=== PATIENT | female | born 1960 | race Caucasian/White ===

== ENCOUNTER 2023-12-18 11:34 | Outpatient (OUT) | payer MEDICARE, OTHER, SELFPAY ==
[2023-12-18 12:18] LABS: Basophils Absolute Auto 0.1 10^3/uL (0.0-0.1); Basophils Percent Auto 0.9 % (0.2-2.0); Eosinophils Absolute Auto 0.6 10^3/uL (0.0-0.7); Eosinophils Percent Auto 6.3 % (0.9-7.0); Estimated Average Glucose 260 mg/dL; Glycohemoglobin A1C 10.7 % (4.5-6.2); Hemoglobin 15.5 g/dL (12.0-16.0); Immature Granulocytes Abs Auto 0.02 10^3/uL (0.00-0.03); Immature Granulocytes Pct Auto 0.2 % (0.0-0.5); Lymphocytes Absolute Auto 2.1 10^3/uL (1.2-3.8); Lymphocytes Percent Auto 23.4 % (20.5-60.0); Mean Corpuscular HGB Conc 31.6 g/dL (29.9-35.2); Mean Corpuscular Hemoglobin 26.8 pg (26.7-34.0); Mean Corpuscular Volume 84.6 fL (81.0-99.0); Mean Platelet Volume 10.7 fL (9.5-13.5); Monocytes Absolute Auto 0.6 10^3/uL (0.3-0.8); Monocytes Percent Auto 6.7 % (1.7-12.0); Neutrophils Absolute Auto 5.6 10^3/uL (1.4-6.5); Neutrophils Percent Auto 62.5 % (43.0-75.0); Platelet Count 328 10^3/uL (150-450); Red Blood Count 5.79 10^6/uL (4.20-5.40)
[2023-12-18 12:54] LABS: Alanine Aminotransferase 30 U/L (14-59); Albumin Globulin Ratio 0.9; Albumin Level 3.5 g/dL (3.4-5.0); Alkaline Phosphatase 148 U/L (46-116); Aspartate Amino Transferase 20 U/L (15-37); BUN Creatinine Ratio 8.7; Bilirubin Total 0.9 mg/dL (0.2-1.0); Calcium 9.1 mg/dL (8.5-10.1); Carbon Dioxide 25.9 mmol/L (21.0-32.0); Chloride 103 mmol/L (98-107); Chol HDL Ratio 3.8; Cholesterol 193 mg/dL (<=200); Estimated GFR (African America 52 (>=60); Estimated GFR (Non-African Ame 43 (>=60); Glucose 261 mg/dL (74-106); HDL Cholesterol 51 mg/dL (40-60); Potassium 3.9 mmol/L (3.5-5.1); Sodium 140 mmol/L (136-145); Total Protein 7.5 g/dL (6.4-8.2); Triglycerides 174 mg/dL (<=150); VLDL CHOLESTEROL 34.8 mg/dL
== END 2023-12-18 11:35 | disposition home or self-care (01) ==
PROVIDERS: PCP Internal Medicine; Visit Provider Internal Medicine
DX: E11.65 Type 2 diabetes mellitus with hyperglycemia (principal); I10 Essential (primary) hypertension; E78.00 Pure hypercholesterolemia, unspecified
CPT/HCPCS: 36415; 80053; 80061; 82043; 83036; 85025

== ENCOUNTER 2024-09-17 11:33 | Outpatient (OUT) | payer MEDICARE, OTHER, SELFPAY ==
--- NOTE | 2024-09-17 11:46 | XR_ITS ---
The [address] [address] Patient Name: TARAS PLAZA MRN: [id number] date: 1960 Sex: F Assigned Patient Location: [facility] Current Patient Location: [facility] Accession/Order Number: [id number] Exam Date: 09/17/2024 14:05 Report Date: 09/17/2024 14:05 At the request of: SHARON QUEVEDO DO Procedure: XR chest 2V Chest 2 views CLINICAL HISTORY: Cough COMPARISON: Chest 01/01/2021 FINDINGS: Heart normal size. Lungs are clear. No free air. XR/XR chest 2V IMPRESSION: NO ACUTE CARDIOPULMONARY ABNORMALITY. Impression dictated by: Prakash Do Jr.OBetty09/17/2024 2:05 PM Dictation Location: [facility]18 Electronically authenticated by: [id number] Y Date: 09/17/2024 14:05
== END 2024-09-17 11:34 | disposition home or self-care (01) ==
LOC: RAD 11:35
PROVIDERS: PCP Internal Medicine; Visit Provider Internal Medicine
DX: R05.9 Cough, unspecified (principal)
CPT/HCPCS: 71046

== ENCOUNTER 2024-12-16 06:27 | Emergency (ER) | payer MEDICARE, OTHER, SELFPAY ==
--- OUTSIDE RECORDS SUMMARY | 2021-01-13 08:50 | XMS_ITS | Continuity of Care Document ---
Author Organization [facility] Address [address] [place] [address] Phone Care Team Providers Care Geophysical Prospecting Surveyor Name Role Phone Humza Jernigan MD Unavailable Unavailable Allergies, Adverse Reactions, Alerts Substance Reaction Status Criticality acetaminophen ItchyEyes, Hives, Rash Active No I nformation morphine Other Active No Information codeine Hives, Rash, Swelling Active No Inf ormation HYDROCODONE BITARTRATE ItchyEyes, Hives, Rash Active No Information oxycodone ItchyEyes, Hives, Rash Active No In formation morphine Active No Information Medications Medication Instructions Dosage Effective Dates (start - stop) Status Comments Victoza 2-Jake 0.6 mg/0.1 mL (18 mg/3 mL) subcutaneous pen injector inject (1.2MG) by subcutaneous route every day 1.2 MG - Active losartan 25 mg tablet take 1 tablet by o ral route every day 25 MG - Active Breo Ellipta 100 mcg-25 mcg/dose powder for inhalation inhale 1 puff by inhalation route every day at the same time each day 1.00 puff - Active Lipitor 40 mg tablet take 1 tablet by or al route every day 40 MG - Active Basaglar KwikPen U-100 Insulin 100 unit/mL (3 mL) subcutaneous inject by subcutaneous route as per insulin protocol 0.00 - Active albuterol sulfate HFA 90 mcg/actuation aerosol inhaler inhale 2 puff by inhalation route every 4 - 6 hours as needed as needed 180 MCG - Active duloxetine 60 mg capsule,delayed release take 1 capsule by oral route 2 times every day 60 MG - Active Farxiga 10 mg tablet take 1 tablet by or al route every day in the morning 10 MG - Active clonazepam 2 mg tablet take 1 tablet by oral route 3 times every day 2 MG - Active Restasis 0.05 % eye drops in a dropperette instill 1 drop by ophthalmic route every 12 hours into affected eye(s) 1.00 drop - Active Procedures Procedure Date Ophthal DX Image Post Retina I And R Uni Or Bi OFFICE/OUTPATIENT VISIT, NEW Advance Directives Directive Yes / No Effective Date File Name No Information Encounters Encounter Description Practice Location Reason(s) For Visit Diagnoses Date Provider Providers Copied on Encounter OFFICE/OUTPAT IENT VISIT, [facility] , [address] [place], [address], [place] tel:[phone] VALDEMAR Traore possible diabetic retinopathy (chief complaint)bl urry vision (chief complaint) Type 2 diab with mild nonp rtnop without macular edema, biAge-related nuclear cataract, bilateralRetinal hemorrhage 1 Rere Ching. [address], [place] [address], [place], [place], [id number] , . tel:[phone] Specialist : [address], [place], [address]. tel:[phone] [phone] Provider: [address], [place], [address]. tel:[phone] [facility] , [address] [place], [address], [place] tel:[phone] VALDEMAR Traore No Information 1 Rere Ching. [address], [address], [place], [place], [id number] , . tel:[phone] Family History Family Member Type Diagnosis Age At Onset Father Problem (finding) High cholesterol Sister Problem (finding) Hypertension Sister Problem (finding) High cholesterol Father Problem (finding) Arthritis Father Problem (finding) Hypertension Paternal Grandmother Problem (finding) Cataracts Father Problem (finding) Cataracts Brother Problem (finding) Arthritis Father Problem (finding) Cardiovascular disease Father Problem (finding) Diabetes mellitus Brother Problem (finding) Asthma Mother Problem (finding) Arthritis Sister Problem (finding) Arthritis Payers Payer name Insurance type Covered green party ID Authorstevie rodriguezluis armando(s) Ruperto [employer] [place] [id number] Social History Type Description Quantity Date Captured Comments Alcohol Use Details No Caffeine Use Details No Tobacco Use Status Current non-smoker Smoking Status Never smoker Sex Female Vital Signs Date / Time: Height Weight BMI Pulse Rate Blood Pressure Temperature Respiratory Rate Body Surface Area Head Circumference Head Circ. Percentile Wt./[place]on. Percentile BMI percentile Pulse Ox Inhaled Ox 1:11 PM 125/67 mm[Hg] Chief Complaint And Reason For Visit From encounter dated '01/13/2021 12:50'. possible diabetic retinopathy (chief complaint). Description: The 60 year old female presents for evaluation of possible diabetic retinopathy in both eyes. Per blurry vision (chief complaint). Description: The patient states blurry vision in both eyes. It started about 1 month(s) ago. The onset was gradual. It affects both near and distance vision. The condition is described as a dry feeling in both eyes. Patient denies flashes and floaters. Reason For Referral Reason For Referral No Information History Of Present Illness Encounter Date Complaint History Of Prese nt Illness blurry vision The patient stat es blurry vision in both eyes. It started about 1 month(s) ago. The onset was gradual. It affects both near and distance vision. The condition is described as a dry feeling in both eyes. Patient denies flashes and floaters. possible diabetic retinopathy Th e 60 year old female presents for evaluation of possible diabetic retinopathy in both eyes. Per Functional Status Date Functional Assessmen t No Information Instructions Date Instruction Additional Infor mation Return in Related to Type 2 diab with mild nonp rtnop without macular edema, bi Impression/Plan Related to Type 2 diab with mild nonp rtnop without macular edema, bi Impression/Plan Related to Age-r elated nuclear cataract, bilateral Impression/Plan Related to Retin al hemorrhage Assessments Type Assessment Date assessment Type 2 diab with mild nonp rtnop without macular edema, bi assessment Age-related nuclear cataract, bi lateral impression Type 2 diab with mil d nonp rtnop without macular edema, bi: E11.3293. Bilateral. Conditions: new, very mild impression Age-related nuclear cataract, bilateral: H25.13. Bilateral. Conditions: new assessment Retinal hemorrhage impression Retinal hemorrhage: H35.60. Bila teral. Conditions: new Patient Care Teams Name Effective Dates (start - stop) Status Members No Information
--- OUTSIDE RECORDS SUMMARY | 2024-12-05 23:59 | XMS_ITS | Continuity of Care Document ---
Author Organization [facility] Address [address] [place] [address] Care Team Providers Care Poultry Farm Worker Name Role Phone SHARON QUEVEDO Primary Care Physician Encounter FT_AMBFIN [id number] Date(s): 12/05/24 - 12/05/24 [facility] [address] [place] [address]- [place] Encounter Diagnosis Viral URI with cough(Discharge Diagnosis) - 12/05/24 Elevated blood pressure reading with diagnosis of hypertension(Discharge Diagnosis) - 12/05/24 Discharge Disposition: Home (Routine DC) Attending Physician: Richard Vergara PA-C Encounter Type: Clinic Allergies, Adverse Reactions, Alerts Substance Criticality Severity Reaction Reaction Severity Status codeine Active morphine Hives Active Percocet hives Active predniSONE swelling in ankles Active Immunizations Given and Recorded Vaccine Date Status Refusal Reason SARS-CoV-2 (COVID-19) mRNA-1273 vaccine 1 10/02/20 Recorded SARS-CoV-2 (COVID-19) mRNA-1273 vaccine 2 09/04/20 Recorded influenza virus vaccine, inactivated 03/30/18 Crow rded 1Result Comment: 2024-12-05: TPV60 2Result Comment: 2024-12-05: TPV60 Medications atorvastatin 40 mg Tab 40 mg = 1 tab(s), Refills(s) 0 Start Date: 12/05/24 Status: Ordered Repeat number: 1 buPROPion 150 mg/24 hours XL Tab 150 mg = 1 tab(s), Refills(s) 0 Start Date: 12/05/24 Status: Ordered Repeat number: 1 clonazepam 1 mg Tab 1 mg = 1 tab(s), Refills(s) 0 Start Date: 12/05/24 Status: Ordered Repeat number: 1 diphenhydrAMINE 25 mg Cap 50 mg = 2 cap(s), Oral, q6hr, Refills(s) 0 Start Date: 12/05/24 Status: Ordered Repeat number: 1 escitalopram 10 mg Tab 10 mg = 1 tab(s), Refills(s) 0 Start Date: 12/05/24 Status: Ordered Repeat number: 1 gabapentin 100 mg Cap 100 mg = 1 cap(s), Refills(s) 0 Start Date: 12/05/24 Status: Ordered Repeat number: 1 Insulin Aspart FlexPen 100 units/mL injectable solution Refills(s) 0 Start Date: 12/05/24 Status: Ordered Repeat number: 1 Insulin Glargine Prefilled Pen 100 units/mL subcutaneous solution Refills(s) 0 Start Date: 12/05/24 Status: Ordered Repeat number: 1 losartan 50 mg Tab 50 mg = 1 tab(s), Refills(s) 0 Start Date: 12/05/24 Status: Ordered Repeat number: 1 Tessalon 100 mg Cap 100 mg = 1 cap(s), Oral, TID, X 7 day(s), # 21 cap(s), Refills(s) 0, Pharmacy: [facility]/pharmacy #[id number], 178, cm, 12/05/24 14:24:00 EDT, Height/Length Dosing, 117.3, kg, 12/05/24 14:24:00 EDT, Weight Dosing Start Date: 12/05/24 Stop Date: 12/12/24 Status: Ordered Quantity: 21.0 Unit: cap(s) Repeat number: 1 Indications: Acute upper respiratory infection, unspecified; Social History Social History Type Response Smoking Status Never (less than 100 in lifetime);Never entered on: 12/05/24 Sex Female Sex Representation Female (finding) Hospital Discharge Instructions Patient Education 12/05/2024 14:44:19 Upper Respiratory Infection, Adult Upper Respiratory Infection, Adult An upper respiratory infection (URI) is a common viral infection of the nose, throat, and upper airpassages that lead to the lungs. The most common type of URI is the common cold. URIs usually get better on their own, without medical treatment. What are the causes? A URI is caused by a virus. You may catch a virus by: ??? Breathing in droplets from an infected person's cough or sneeze. ??? Touching something that has been exposed to the virus (is contaminated) and then touching your mouth, nose, or eyes. What increases the risk? You are more likely to get a URI if: ??? You are very young or very old. ??? You have close contact with others, such as at work, school, or a health care facility. ??? You smoke. ??? You have long-term (chronic) heart or lung disease. ??? You have a weakened disease-fighting system (immune system). ??? You have nasal allergies or asthma. ??? You are experiencing a lot of stress. ??? You have poor nutrition. What are the signs or symptoms? A URI usually involves some of the following symptoms: ??? Runny or stuffy (congested) nose. ??? Cough. ??? Sneezing. ??? Sore throat. ??? Headache. ??? Fatigue. ??? Fever. ??? Loss of appetite. ??? Pain in your forehead, behind your eyes, and over your cheekbones (sinus pain). ??? Muscle aches. ??? Redness or irritation of the eyes. ??? Pressure in the ears or face. How is this diagnosed? This condition may be diagnosed based on your medical history and symptoms, and a physical exam. Your health care provider may use a swab to take a mucus sample from your nose (nasal swab). This sample can be tested to determine what virus is causing the illness. How is this treated? URIs usually get better on their own within 7???10 days. Medicines cannot cure URIs, but your health care provider may recommend certain medicines to help relieve symptoms, such as: ??? Lleo-iin-vgrfzje cold medicines. ??? Cough suppressants. Coughing is a type of defense against infection that helps to clear the respiratory system, so take these medicines only as recommended by your health care provider. ??? Fever-reducing medicines. Follow these instructions at home: Activity ??? Rest as needed. ??? If you have a fever, stay home from work or school until your fever is gone or until your health care provider says your URI cannot spread to other people (is no longer contagious). Your health care provider may have you wear a face mask to prevent your infection from spreading. Relieving symptoms ??? Gargle with a mixture of salt and water 3???4 times a day or as needed. To make salt water, completely dissolve ?1 tsp (3???6 g) of salt in 1 cup (237 mL) of warm water. ??? Use a cool-mist humidifier to add moisture to the air. This can help you breathe more easily. Eating and drinking ??? Drink enough fluid to keep your urine pale yellow. ??? Eat soups and other clear broths. General instructions ??? Take bqkc-kjw-pwimzmi and prescription medicines only as told by your health care provider. These include cold medicines, fever reducers, and cough suppressants. ??? Do not use any products that contain nicotine or tobacco. These products include cigarettes, chewing tobacco, and vaping devices, such as e-cigarettes. If you need help quitting, ask your health care provider. ??? Stay away from secondhand smoke. ??? Stay up to date on all immunizations, including the yearly (annual) flu vaccine. ??? Keep all follow-up visits. This is important. How to prevent the spread of infection to others URIs can be contagious. To prevent the infection from spreading: ??? Wash your hands with soap and water for at least 20 seconds. If soap and water are not available, use hand travel registered nurse nicu. ??? Avoid touching your mouth, face, eyes, or nose. ??? Cough or sneeze into a tissue or your sleeve or elbow instead of into your hand or into the air. Contact a health care provider if: ??? You are getting worse instead of better. ??? You have a fever or chills. ??? Your mucus is brown or red. ??? You have yellow or brown discharge coming from your nose. ??? You have pain in your face, especially when you bend forward. ??? You have swollen neck glands. ??? You have pain while swallowing. ??? You have white areas in the back of your throat. Get help right away if: ??? You have shortness of breath that gets worse. ??? You have severe or persistent: ??? Headache. ??? Ear pain. ??? Sinus pain. ??? Chest pain. ??? You have chronic lung disease along with any of the following: ??? Making high-pitched whistling sounds when you breathe, most often when you breathe out (wheezing). ??? Prolonged cough (more than 14 days). ??? Coughing up blood. ??? A change in your usual mucus. ??? You have a stiff neck. ??? You have changes in your: ??? Vision. ??? Hearing. ??? Thinking. ??? Mood. These symptoms may be an emergency. Get help right away. Call 911. ??? Do not wait to see if the symptoms will go away. ??? Do not drive yourself to the hospital. Summary ??? An upper respiratory infection (URI) is a common infection of the nose, throat, and upper air passages that lead to the lungs. ??? A URI is caused by a virus. ??? URIs usually get better on their own within 7???10 days. ??? Medicines cannot cure URIs, but your health care provider may recommend certain medicines to help relieve symptoms. This information is not intended to replace advice given to you by your health care provider. Make sure you discuss any questions you have with your health care provider. Document Revised: 01/12/2022 Document Reviewed: 01/12/2022 [employer] Patient Education ?? 2023 [employer]. Follow Up Care 12/05/2024 12:22:45 With:SHARON QUEVEDO DO Address: [address] [place] [address]- When: Unknown With:Richard Vergara PA-C, FAM Address: [phone] When: Unknown Patient Care team information Care Team Personnel Name: SHARON QUEVEDO DO Position: FT Physician Member Role: Primary Care Physician Address: [address] [place] [address]- Telecom: Care Team Related Persons Name: JOSEPH PLAZA Insurance Providers Guarantor name: TARAS Mendez BOLA Health Plan Information #: 1 Payer: NA Payer Identifier: [id number] Member Number: [id number] Group Number: [id number] Subscriber Identifier: [id number] Relationship to Subscriber: Self Coverage Type: MEDICARE Coverage Verification Date: 24 Telecom: NA Address: Health Plan Information #: 2 Payer: RENE Payer Identifier: [id number] Member Number: [id number] Group Number: [employer] Subscriber Identifier: [id number] Relationship to Subscriber: Self Coverage Type: PRIVATE HEALTH INSURANCE Coverage Verification Date: 24 Telecom: RENE Address:
--- OUTSIDE RECORDS SUMMARY | 2024-12-07 23:59 | XMS_ITS | Continuity of Care Document ---
Author Organization [facility] Address [address], [place] [place] [address] Care Team Providers Care Dean Of Boys Name Role Phone SHARON QUEVEDO Primary Care Physician [phone] Encounter FT_AMBFIN [id number] Date(s): 12/07/24 - 12/07/24 [facility] [address] [place] [address]- [place] Encounter Diagnosis Bronchitis(Discharge Diagnosis) - 12/07/24 Discharge Disposition: Home (Routine DC) Attending Physician: Ari Sánchez PA-C Encounter Type: Clinic Allergies, Adverse Reactions, [...] Date: 12/05/24 Status: Ordered Repeat number: 1 azithromycin 250 mg Tab 250 mg = 1 tab(s), Oral, As Directed, Take 2 tablet p.o. once daily on day 1, then take 1 tablet p.o. once daily for the next 4 days., X 5 day(s), # 6 tab(s), Refills(s) 0, Pharmacy: [facility]/pharmacy #[id number], 178, cm, 12/07/24 12:01:00 EDT, Height/Length Dosing, 117, kg, 12/07/24 12:01:00 EDT, Weight Dosing Start Date: 12/07/24 Stop Date: 12/12/24 Status: Ordered Quantity: 6.0 Unit: tab(s) Repeat number: 1 Indications: Bronchitis, not specified as acute or chronic; buPROPion 150 mg/24 hours XL Tab 150 [...] Date: 12/05/24 Status: Ordered Repeat number: 1 predniSONE 20 mg Tab 40 mg = 2 tab(s), Oral, Daily, X 5 day(s), # 10 tab(s), Refills(s) 0, Pharmacy: [facility]/pharmacy #[id number],178, cm, 12/07/24 12:01:00 EDT, Height/Length Dosing, 117, kg, 12/07/24 12:01:00 EDT, Weight Dosing Start Date: 12/07/24 Stop Date: 12/12/24 Status: Ordered Quantity: 10.0 Unit: tab(s) Repeat number: 1 Indications: Bronchitis, not specified as acute or chronic; Tessalon 100 mg Cap 100 mg = 1 cap(s), Oral, TID, X 7 day(s), # 21 cap(s), Refills(s) 0, Pharmacy: [facility]/pharmacy #[id number], 178, cm, 12/05/24 14:24:00 EDT, Height/Length Dosing, 117.3, kg, 12/05/24 14:24:00 EDT, Weight Dosing Start Date: 12/05/24 Stop Date: 12/12/24 Status: Ordered Quantity: 21.0 Unit: cap(s) Repeat number: 1 Indications: Acute upper respiratory infection, unspecified; Social History Social History Type Response Smoking Status Never (less than 100 in lifetime);Never entered on: 12/07/24 Sex Female Sex Representation Female (finding) Patient Care team information Care Team Personnel Name: SHARON QUEVEDO DO Position: FT Physician Member Role: Primary Care Physician Address: [address] [place] [address] Telecom: Care Team Related Persons Name: JOSEPH PLAZA Insurance Providers Guarantor name: TARAS PLAZA Health Plan Information #: 1 Payer: NA Payer Identifier: [id number] Member Number: [id number] Group Number: [id number] Subscriber Identifier: [id number] Relationship to Subscriber: Self Coverage Type: MEDICARE Coverage Verification Date: 24 Telecom: NA Address: Health Plan Information #: 2 Payer: NA Payer Identifier: [id number] Member Number: [id number] Group Number: [id number] Subscriber Identifier: [id number] Relationship to Subscriber: Self Coverage Type: PRIVATE HEALTH INSURANCE Coverage Verification Date: 24 Telecom: Address:
[2024-12-16 06:31] VITALS: BP 162/82; PULSE 94; TEMP 37.1; O2SAT 96; BMI 36.9
--- OUTSIDE RECORDS SUMMARY | 2024-12-16 06:35 | XMS_ITS | Encounter Summary ---
Author Organization [facility] Address [address] [facility] [place] [address] Care Team Providers Care Stock Counter Name Role Phone Donnie Hebert Primary Care Provider [phone] Encounter Details Date Type Department Care Team ([facility] Contact Info) Description 11/05/2024 Results Follow-Up [facility] [address] [facility] [address] [place] [address] Rashad Huerta, PA [address] [facility] [address] [place] [address] Social History Tobacco Use Types Packs/Day Years Used Date Smoking Tobacco: Never Smokeless Tobacco: Never Alcohol Use Standard Drinks/Week Comments Yes 0 (1 standard drink = 0.6 oz pur e alcohol) Occationally Comments Unknown Sex and Gender Information Value Date Recorded Sex Assigned at Not on file Legal Sex Female 6:50 PM EDT Gender Identity Not on file Sexual Orientation Not on file documented as of this encounter Plan of Treatment Upcoming Encounters Date Type Department Care Team (Late Contact Info) Description 12/17/2024 2:00 PM EDT Office Visit [facility] [address] [address] Rashad Huerta, PA [address] [facility] [address] [place] [address] 12/25/2024 2:00 PM EDT Office Visit [facility] [address] [place] [address] Lamont Guillory DO [address] [place] [address] documented as of this encounter Visit Diagnoses Not on filedocumented in this encounter Care Teams Stock Counter Relationship Specialty Start Date End Date Donnie Hebert DO PCP - General Internal Medicine 11/16/23 documented as of this encounter
--- OUTSIDE RECORDS SUMMARY | 2024-12-16 06:35 | XMS_ITS | Encounter Summary ---
Author Organization [facility] Address [address] [place] [address] Care Team Providers Care Host/Hostess Ground Name Role Phone Donnie Hebert DO Primary Care Provider [phone] Reason for Visit * Reason Onset Date Comments surgery cancellation 11/19/2024 Encounter Details Date Type Department Care Team (Late st Contact Info) Description 11/19/2024 Telephone [facility] [address] [place] [address] Jr. Waldo Delacruz DO [address] [facility] [address] [place] [address] surgery cancellation Social History Tobacco Use Types Packs/Day Years [...] on file documented as of this encounter Miscellaneous Notes * Telephone Encounter - Katie Vaz MA - 12/10/2024 11:28 AM EDT Spoke with the patient. Dr. Delacruz said that he would be okay with doing her surgery as long as she is breathing well and there is no infection. She stated that she is feeling very poorly and is having trouble with her eyes from the bronchitis. We did move her surgery out to December 26 as she stated that she does tend to get pneumonia. She was grateful for return call and rescheduling of surgery. * Telephone Encounter - Shasha Bowman - 12/10/2024 9:28 AM EDT Patient called and left that she cannot drive at this time. Her eyes are matted shut and she is on a steriod at this time. She also has a sore throat. Please call patient back about rescheduling. * Telephone Encounter - Katie Vaz MA - 12/09/2024 1:31 PM EDT I called Patricia and left a voicemail to see when she came down with this and if they put her on anything. I do need to see her for H&P prior to her surgery but also need to check with Dr. Vila see if she is okay to have her surgery. * Telephone Encounter - Shasha Bowman - 12/09/2024 8:29 AM EDT Patient called in and left that she has Bronchiectasis . She has a pre-op appt tomorrow and would like to know if we still wanted her to come in. Please advise. * Telephone Encounter - Katie Vaz MA - 11/26/2024 9:21 AM EDT Case has also been scheduled at [facility]. * Telephone Encounter - Shasha Bowman - 11/21/2024 10:27 AM EDT Patient called back, she stated December 17 will work for her. * Telephone Encounter - Shasha Bowman - 11/21/2024 10:25 AM EDT Patient called and left vm returning your call. I called her back to ask her if that date would work, she did not answer. * Telephone Encounter - Katie Vaz MA - 11/21/2024 9:13 AM EDT I called patient and left a voicemail. If she calls, can you please ask if December 17 will work for her? * Telephone Encounter - Shasha Bowman - 11/19/2024 11:35 AM EDT Patient called and left vm stating she has a bad stomach bug and had to cancel her surgery for today. She would like to get put back on the surgery schedule. Please call patient back at [phone]. * Telephone Encounter - Katie Vaz MA - 11/19/2024 7:56 AM EDT I called and let Wilver Lin know. I will recall to reschedule her surgery. * Telephone Encounter - Christin Frias - 11/19/2024 7:51 AM EDT Patricia called on 11/18 at 11:28 and left vm stated she is scheduled for sx on 11/19 , she has had diarrhea for the last 2 days and thinks its best she does not have sx. She hope Dr Delacruz understands.She would like to r/s this sx , if you could call her back at [phone] documented in this encounter Plan of Treatment Upcoming Encounters Date Type Department Care Team (Late st Contact Info) Description 12/17/2024 2:00 PM EDT Office Visit [facility] [address] [facility] [place] [address] Rashad Huerta, ITZEL [address] [facility] [address] [place] [address] 12/25/2024 2:00 PM EDT Office Visit [facility] [address] [place] [address] Lamont Guillory DO [address] [place] [address] documented as of this encounter Visit Diagnoses Not on filedocumented in this encounter Care Teams Host/Hostess Ground Relationship Specialty Start Date End Date Donnie Hebert DO PCP - General Internal Medicine 11/16/23 documented as of this encounter
--- OUTSIDE RECORDS SUMMARY | 2024-12-16 06:35 | XMS_ITS | Clinical Summary ---
Author Organization [facility] Address [id number] [address] [place] [address] Care Team Providers Care Human Intelligence Name Role Phone Donnie Hebert Primary Care Provider [phone] Allergies Active Allergy Reactions Criticality Noted Date Comments Codeine Itching,Rash Low 02/14/2017 Morphine Other (See Comments) 02/14/2017 Stroke like symptoms Medications pioglitazone (ACTOS) 30 mg tablet Take 1 tablet (30 mg total) by mouth in the morning. Active citalopram (CeleXA) 40 mg tablet Take 1 tablet (40 mg total) by mouth in the morning. Active losartan (COZAAR) 50 mg tablet Take 1 tablet (50 mg total) by mouth in the morning. Active sitaGLIPtin (JANUVIA) 100 mg tablet Take 1 tablet (100 mg total) by mouth in the morning. Active clonazePAM (KlonoPIN) 0.5 mg tablet Take 1 tablet (0.5 mg total) by mouth 2 (two) times a day as needed for seizures. Active insulin glargine (LANTUS) 100 unit/mL (3 mL) insulin pen Inject 35 Units under the skin in the morning and 35 Units before bedtime. Active atorvastatin (LIPITOR) 20 mg tablet Take 1 tablet (20 mg total) by mouth in the morning. Active famotidine (PEPCID) 20 mg tablet Take 1 tablet (20 mg total) by mouth in the evening. Active propylene glycol (SYSTANE BALANCE) 0.6 % drops Instill 1 drop to eye 3 (three) times a day. Active canagliflozin (INVOKANA) 100 mg tablet Take 1 tablet (100 mg total) by mouth in the morning. Active etodolac (LODINE) 400 mg tablet Take 1 tablet (400 mg total) by mouth in the morning and 1 tablet (400 mg total) before bedtime. Active buPROPion XL (WELLBUTRIN XL) 150 mg 24 hr tablet TAKE 1 TABLET BY MOUTH EVERY DAY FOR 90 DAYS 10/06/19 24 Active FARXIGA 10 mg tablet 11/07/19 24 Active escitalopram (LEXAPRO) 10 mg tablet TAKE 1 TABLET BY MOUTH EVERY DAY FOR 90 DAYS 09/22/19 24 Active VICTOZA 3-JESSICA 0.6 mg/0.1 mL (18 mg/3 mL) pen injector INJECT 1.8MG SUBCUTANEOUSLY ONCE DAILY 08/09/19 24 Active clobetasoL (TEMOVATE) 0.05 % creamIndicatio ns:Lichen sclerosus Apply 1 Application topically in the morning and 1 Application before bedtime. 45 g 2 11/09/19 24 Active melatonin 2.5 mg tablet,chewabl e Chew 5 mg and swallow respiratory nightly. Active melatonin 5 mg tablet,chewabl e Daily at bedtime 12/15/19 24 Active glimepiride (AMARYL) 1 mg tabletIndicati ons:type 2 diabetes mellitus Take 1 tablet (1 mg total) by mouth every morning before breakfast Indications: type 2 diabetes mellitus. Active boric acid 600 mg suppositoryInd ications:Nicol da glabrata infection Insert 1 suppository into the vagina once daily at bedtime. 14 suppository 1 01/16/20 24 Active Active Problems No known active problems Encounters Date Type Department Care Team Description 11/05/2024 Orders Only INTERFACE-ONLY Rashad Marks PA 11/05/2024 Travel from Last 3 Months Family History Medical History Relation Name Comments Heart disease Father Cancer Mother skin Hypertension Mother Relation Name Status Comments Father Mother Alive Social History Tobacco Use Types Packs/Day Years Used Date Smoking Tobacco: Never Smokeless Tobacco: Never Tobacco Cessation:Counseling Given: Not Answered Alcohol Use Standard Drinks/Week Comments No 0 (1 standard drink = 0.6 oz pur e alcohol) Childcare Answer Date Recorded Childcare Unknown 12/05/2018 Employment Answer Date Recorded Employment Unknown 12/05/2018 Hunger Screening Answer Date Recorded Within the past 12 months we worried whether our food would run out before we got money to buy more. Never True 01/11/2024 Within the past 12 months th e food we bought just didn't last and we didn't have money to get more. Never True 01/11/2024 Purpose - Life Answer Date Recorded Purpose and direction in life Unknown Comments No Sex and Gender Information Value Date Recorded Sex Assigned at Not on file Legal Sex Female 12:03 PM EDT Gender Identity Not on file Sexual Orientation Not on file Last Filed Vital Signs Vital Sign Reading Time Taken Comments Blood Pressure 126/68 01/11/2024 1:53 PM EDT Pulse 84 03/28/2017 2:20 PM EDT Temperature 36.7 C (98.1 F) 03/28/2017 1:31 PM EDT Respiratory Rate 14 03/28/2017 2:20 PM EDT Oxygen Saturation 95% 03/28/2017 3:27 PM EDT Inhaled Oxygen Concentration - - Weight 109.1 kg (240 lb 9.6 oz) 01/11/2024 1:53 PM EDT Height 175.3 cm (5' 9 ) 03/28/2017 9:33 AM EDT Body Mass Index 35.53 03/28/2017 9:33 AM EDT Plan of Treatment Health Maintenance Due Date Last Done Comments Diabetic Ophthalmology Exam 1958 Depression Screening 1970 Diabetic Foot Exam 1976 DTaP,Tdap and Td Vaccines (1 - Tdap) 1977 Zoster (Shingles) Vaccine (1 of 2) 2008 Fall Risk Screening 11/14/2023 COVID-19 Vaccine ( season) 02/25/202402/2021, 09/04/2020 Adult BMI Screening 01/10/2025 01/11/2024 Tobacco Screening 01/10/2025 01/11/2024 Influenza Vaccine 02/24/2025 03/30/2018 Medical Devices Not on file Procedures Procedure Name Priority Date/Time Associated Diagnosis Comments BASIC METABOLIC PANEL Routine 11/05/2024 2:47 PM EDT from Last 3 Months Results * (ABNORMAL) Basic Metabolic Panel (11/05/2024 2:47 PM EDT) SODIUM 142 134 - 146 mmol/L 11/05/2024 7:04 PM EDT [facility] POTASSIUM 4.3 3.5 - 5.0 mmol/L 11/05/2024 7:04 PM EDT [facility] CHLORIDE 104 98 - 109 mmol/L 11/05/2024 7:04 PM EDT [facility] CARBON DIOXIDE 28 22 - 32 mmol/L 11/05/2024 7:04 PM EDT [facility] ANION GAP 10 5 - 15 mmol/L 11/05/2024 7:04 PM EDT [facility] BLOOD UREA NITROGEN 17 5 - 27 mg/dL 11/05/2024 7:04 PM EDT [facility] CREATININE 1.10(H) 0.40 - 1.00 mg/dL 11/05/2024 7:04 PM EDT [facility] Comment:METHOD TRACEABLE TO IDMS STANDARD GLUCOSE 176(H) 65 - 99 mg/dL 11/05/2024 7:04 PM EDT [facility] CALCIUM 9.9 8.5 - 10.5 mg/dL 11/05/2024 7:04 PM EDT [facility] EGFR Non-Race Dependent 56(L) >=60 ml/min/1.7 3sq.m 11/05/2024 7:04 PM EDT [facility] Comment: Reported eGFR is based on the CKD-EPI 2020 equation that does not use a race coefficient. Blood Venipuncture / Unknown 11/05/2024 2:47 PM EDT 11/05/2024 2:47 PM EDT us Rashad ROBBINS LAB BLOOD ORDERABLES Final Re sult [facility] [address] [place] [address], [place] [phone] from Last 3 Months Insurance MEDICARE [facility] [id number] Care Teams Human Intelligence Relationship Specialty Start Date End Date Donnie Hebert DO [address] [place] [address] PCP - General 02/14/17
--- OUTSIDE RECORDS SUMMARY | 2024-12-16 06:35 | XMS_ITS | Clinical Summary ---
Author Organization [facility] Address [address] [place] [address] Care Team Providers Care Army Ranger Name Role Phone Donnie Hebert DO Primary Care Provider [phone] Allergies Active Allergy Reactions Criticality Noted Date Comments Codeine Hives,Itching,Rash Low 02/14/2017 Morphine Hives 02/14/2017 Stroke like symptoms Oxycodone-Acetaminophen Itching 11/16/2023 Prednisone Swelling 06/27/2024 ANKLE SWELLING Medications atorvastatin (Lipitor) 40 MG tablet 1 (one) time each day at the same time Active clobetasol (Temovate) 0.05 % cream Active clonazePAM (KlonoPIN) 0.5 MG tablet Take 0.5 mg by mouth as needed in the morning and 0.5 mg as needed in the evening. Active Farxiga 10 MG 4 Active escitalopram (Lexapro) 10 MG tablet 4 Active famotidine (Pepcid) 20 MG tablet Take 20 mg by mouth in the morning. Active insulin glargine (Lantus) 100 UNIT/ML pen Inject 35 Units under the skin in the morning and 35 Units in the evening. Active losartan (Cozaar) 50 MG tablet Take 50 mg by mouth in the morning. Active buPROPion XL (Wellbutrin XL) 150 MG 24 hr tablet Take 150 mg by mouth Daily Do not crush, chew, or split. Active HYDROcodone-acet aminophen ([place]) 5-325 MG tabletIndication s:Internal derangement of left knee Take 1 tablet by mouth every 6 (six) hours if needed for severe pain for up to 3 days 12 tablet 5 11/22/19 25 Active Problems No known active problems Encounters Date Type Department Care Team Description 11/19/2024 Telephone [facility] [address] [place] [phone] Jr. Waldo Delacruz, DO surgery cancellation 11/15/2024 Refill [facility] [address] [place] [phone] Bradley Pereyra T, [employer] Internal derangement of left knee (Primary Dx) 11/14/2024 11:00 AM EDT Evaluation [facility] [address] [place] [address] Roberto Sylvester, PT Chronic pain of left knee (Primary Dx); Pre-op examination 11/14/2024 Plan of Care Documentation [facility] [address] [place] [address] 11/14/2024 Bamboo flowsheet [facility] [address] [place] [address] Roberto Sylvester, PT 11/14/2024 Travel 11/06/2024 Telephone [facility] [address] [place] [phone] Jr. Waldo Delacruz, DO RS 1st Post Op 11/06/2024 Telephone [facility] [address] [facility] [address] [place] [address] Roberto Sylvester, PT PT Prehab (Dos 11/19); Call Back 11/05/2024 2:00 PM EDT Office Visit [facility] [address] [place] [phone] Rashad Huerat PA Pre-op examination (Primary Dx) 11/05/2024 Results Follow-Up [facility] [address] [place] [address] Rashad Huerta PA 11/05/2024 External Result Encounter [facility] Unsolicited Rashad Huerta PA 11/05/2024 Bamboo flowsheet [facility] [address] [place] [address] Rashad Huerta PA 11/05/2024 Travel 10/29/2024 Orders Only [facility] [address] [place] [address] Katie aVz MA from Last 3 Months Family History Medical History Relation Name Comments Diabetes Father Heart Issues Father Hypertension Father Relation Name Status Comments Father Mother Alive Social History Tobacco Use Types Packs/Day Years Used Date Smoking Tobacco: Never Smokeless Tobacco: Never Tobacco Cessation:Counseling Given: Not Answered Alcohol Use Standard Drinks/Week Comments Yes 0 (1 standard drink = 0.6 oz pur e alcohol) Occationally Comments Unknown Sex and Gender Information Value Date Recorded Sex Assigned at Not on file Legal Sex Female 6:50 PM EDT Gender Identity Not on file Sexual Orientation Not on file Last Filed Vital Signs Vital Sign Reading Time Taken Comments Blood Pressure - - Pulse - - Temperature - - Respiratory Rate - - Oxygen Saturation - - Inhaled Oxygen Concentration - - Weight 110 kg (243 lb) 11/05/2024 2:03 PM EDT Height 177.8 cm (5' 10 ) 11/05/2024 2:03 PM EDT Body Mass Index 34.87 11/05/2024 2:03 PM EDT Plan of Treatment Upcoming Encounters Date Type Department Care Team (Late st Contact Info) Description 12/17/2024 2:00 PM EDT Office Visit [facility] [address] [place] [address] Rashad Huerta, PA [address] [place] [address] 12/25/2024 2:00 PM EDT Office Visit [facility] [address] [place] [address] Lamont Guillory DO [address] [place] [address] Health Maintenance Due Date Last Done Comments CT Colonography 1958 Colonoscopy 1958 FIT 1958 FOBT 1958 Sigmoidoscopy 1958 Mammogram 1998 Pneumococcal Vaccine: 65+ Ye ars (1 of 1 - PCV) 2008 Influenza Vaccine (Season Ended) 2025 03/30/20 18 Colorectal Cancer Screening 01/14/2027 FIT-DNA 01/14/2027 01/15/2024, 04/20/2020 Procedures Procedure Name Priority Date/Time Associated Diagnosis Comments BASIC METABOLIC PANEL Routine 11/05/2024 2:47 PM EDT BASIC METABOLIC PANEL Routine 11/05/2024 2:47 PM EDT from Last 3 Months Results * (ABNORMAL) Basic metabolic panel (11/05/2024 2:47 PM EDT) Only the most recent of2 resultswithin the time period is included. Sodium 142 134 - 146 mmol/L [facility] Potassium, Bld 4.3 3.5 - 5.0 mmol/L [facility] Chloride 104 98 - 109 mmol/L [facility] Carbon Dioxide 28 22 - 32 mmol/L [facility] Anion Gap 10 5 - 15 mmol/L [facility] BUN 17 5 - 27 mg/dL [facility] Creatinine 1.10(H) 0.40 - 1.00 mg/dL [facility] Comment:METHOD TRACEABLE TO IDMS STANDARD Glucose 176(H) 65 - 99 mg/dL [facility] Calcium 9.9 8.5 - 10.5 mg/dL [facility] EGFR 56(L) >=60 ml/min/1.7 3sq.m [facility] Comment: Reported eGFR is based on the CKD-EPI 2020 equation that does not use a race coefficient. Print requisition?->No PERFORMED AT [facility] [address],[place] [address] 11/05/2024 2:47 PM EDT 11/05/2024 6:09 PM EDT us Rashad ROBBINS LAB BLOOD ORDERABLES Final Re sult [facility] from Last 3 Months Insurance [facility] [place] [address] Care Teams Army Ranger Relationship Specialty Start Date End Date Donnie Hebert DO PCP - General Internal Medicine 11/16/23
--- OUTSIDE RECORDS SUMMARY | 2024-12-16 06:35 | XMS_ITS | Encounter Summary ---
Author Organization [facility] Address [id number] [address] [place] [address] Care Team Providers Care Ceramics Technician Name Role Phone Dnonie Hebert DO Primary Care Provider [phone] Encounter Details Date Type Department Care Team (Late st Contact Info) Description 12/12/2023 Telephone [facility] [address] [place] [address] Alice Borges DO [address] [place] [address] Social History Tobacco Use Types Packs/Day Years Used Date Smoking Tobacco: Never Smokeless Tobacco: Never Alcohol Use Standard Drinks/Week Comments No 0 (1 standard drink = 0.6 oz pur e alcohol) Childcare Answer Date Recorded Childcare Unknown 12/05/2018 Employment Answer Date Recorded Employment Unknown 12/05/2018 Hunger Screening Answer Date Recorded Within the past 12 months we worried whether our food would run out before we got money to buy more. Never True 12/07/2023 Within the past 12 months th e food we bought just didn't last and we didn't have money to get more. Never True 12/07/2023 Purpose - Life Answer Date Recorded Purpose and direction in life Unknown Comments No Sex and Gender Information Value Date Recorded Sex Assigned at Not on file Legal Sex Female 12:03 PM EDT Gender Identity Not on file Sexual Orientation Not on file documented as of this encounter Plan of Treatment Not on file documented as of this encounter Visit Diagnoses Diagnosis Dominique glabrata infection- Primary Candidiasis of unspecified site UTI (urinary tract infection), bacterial documented in this encounter Care Teams Ceramics Technician Relationship Specialty Start Date End Date Donnie Hebert DO [facility] [place] [address] PCP - General 02/14/17 documented as of this encounter
--- OUTSIDE RECORDS SUMMARY | 2024-12-16 06:36 | XMS_ITS | CCD ---
Author Organization [facility] Care Team Providers Care Room Service Associate Name Role Phone DO Donnie Hebert Primary Care Provider [phone] Community, Outreach Attending Provider REQUEST, DR NONE LISTED Consulting Unavaila ble REQUEST, NONE LISTED Admitting Unavaila ble BALL, DR FIELDS Primary Care Unavailable REQUEST, NONE LISTED Attending Unavaila ble REQUEST, DR CORNELIUS LISTED Admitting Unavaila ble BALL, DR FIELDS Primary Care Unavailable REQUEST, NONE LISTED Attending Unavaila ble BALL, DR FIELDS Admitting Unavailable BALL, DR FIELDS Attending Unavailable BALL, DR FIELDS Consulting Unavailable BALL, DR FIELDS Primary Care Unavailable [place], DR PLAZA V Consulting Unavailable Donnie Hebert Unavailable DO Donnie eHbert Primary Care Provider Community, Outreach Attending Provider Community, Outreach Attending Unavailable Community, Outreach Admitting Unavailable Donnie Hebert Primary Care Unavailable Donnie Hebert Primary Care Unavailable Community, Outreach Attending Unavailable Community, Outreach Admitting Unavailable LINDA KHALILYA L Attending Unavailable DONNIE HEBERT Referring Unavailable SAE, DONNIE Vázquez Primary Care Unavailable LINDA KHALILYA L Attending Unavailable DONNIE HEBERT Referring Unavailable DONNIE HEBERT Primary Care Unavailable REMI, BERTA L Attending Unavailable DONNIE HEBERT E Referring Unavailable BALL, DONNIE Vázquez Primary Care Unavailable KHALIL, BERTA L Referring Unavailable SAE, DONNIE Vázquez Primary Care Unavailable KHALIL, BERTA L Referring Unavailable BALL, DONNIE E Primary Care Unavailable KHALIL, BERTA L Referring Unavailable SAE, DONNIE E Primary Care Unavailable REMI, BERTA L Referring Unavailable DONNIE HEBERT E Primary Care Unavailable Donnie Hebert MD Primary Care Provider Donnie Hebert DO Primary Care Provider Donnie Hebert DO Primary Care Provider SAUL HUERTA Attending Unavailable SAUL HUERTA Referring Unavailable SAUL HUERTA Attending Unavailable JR. DELACRUZ GEORGE C Attending Unavaila SAUL Arreola Attending Unavailable DINORAH SYLVESTER Attending Unavailable SAUL HUERTA Referring Unavailable SAUL HUERTA Referring Unavailable SAUL HUERTA Attending Unavailable BERTA KHALIL Referring Unavailable DONNIE HEBERT Primary Care Unavailable SAUL HUERTA Referring Unavailable DONNIE HEBERT Primary Care Unavailable DONNIE HEBERT Primary Care Physician [phone] Richard Vergara Attending Unavailable Ari Sánchez Attending Unavailable Richard Vergara Attending Unavailable Allergies Allergy Classification Reported Allergen(s) Allergy Type Date of Onset Reaction(s) Facility Acetaminophen (1 source) Acetaminophen Drug Allergy 12-15-19 24 Hives, itching [facility] Opioid Agonists (4 sources) Codeine Drug Allergy 12-15-19 Unknown Reaction, Numbness face, Hives, itching [facility] venlafaxine (1 source) venlafaxine Drug Allergy 12-15-19 24 Unknown Reaction [facility] (10 sources) Acetaminophen; Translations: [acetaminophen] Drug Allergy 05-07-20 19 Hives, itching [facility] (20 sources) Codeine; Translations: [Codeine] Drug Allergy 10-25-19 13 Hives, Itching, Rash [facility] (20 sources) Morphine; Translations: [morphine] Drug Allergy 11-01-19 13 Hives, Other (See Comments) [facility] (10 sources) oxyCODONE; Translations: [oxycodone] Drug Allergy 05-07-20 19 Hives, itching [facility] (11 sources) Acetaminophen / oxyCODONE; Translations: [acetaminophen-ox ycodone] Drug Allergy Unknown, hives [facility] (9 sources) Codeine Drug Allergy Unknown [employer] Other (18 sources) traMADol Drug Allergy 05-10-20 17 Unknown, Unknown Reaction [facility] (8 sources) venlafaxine Drug Allergy Unknown [employer] Other (3 sources) liraglutide Drug Allergy VICTOZA Comment:Freete xt Needs Updated. [employer] Other (10 sources) venlafaxine Drug Allergy 12-15-19 24 Unknown, Unknown Reaction [facility] (3 sources) Morphine Sulfate (Concentrate) *ANALGESICS - OPIOI Propensity to adverse reactions Unknown [facility] [employer] Other (2 sources) patient allergy list reviewed by nurse or physicia Propensity to adverse reactions 12-21-19 Comment:Done [employer] [facility] [employer] Other (18 sources) Acetaminophen / oxyCODONE Drug Allergy 11-16-19 24 Itching [facility] (14 sources) Prednisone; Translations: [predniSONE] Propensity to adverse reactions 06-27-19 Swelling [facility] (2 sources) predniSONE; Translations: [prednisone] Drug Allergy swelling in ankles [facility] (1 source) Acetaminophen / oxyCODONE; Translations: [Percocet] Drug Allergy [facility] Repository Medications Current Medications Medication Drug Class(es) Dates Sig (Normalized) Sig (Original) 3 ML insulin glargine-yfgn 100 UNT/ML Pen Injector (2 sources) Start: 12-05-2024 Insulin Glargine Prefilled Pen 100 units/mL subcutaneous solution Refills(s) 0 Start Date: 12/05/24 Status: Ordered Repeat number: 1 acetaminophen 325 mg / HYDROcodone bitartrate 5 mg oral tablet (1 source) Opioid Agonist Start: 11-18-2024 End: 11-21-2024 take 1 tablet by mouth every six hours for pain HYDROcodone-acetam inophen (Paragon) 5-325 MG tablet Indications: Internal derangement of left knee Take 1 tablet by mouth every 6 (six) hours if needed for severe pain for up to 3 days 12 tablet 11/18/2024 11/21/2024 Active atorvastatin 40 mg oral tablet (20 sources) HMG-CoA Reductase Inhibitor Start: 12-05-2024 atorvastatin 40 mg Tab 40 mg = 1 tab(s), Refills(s) 0 Start Date: 12/05/24 Status: Ordered Repeat number: 1 Start: 05-07-2019 End: 12-11-2023 take 1 tablet by mouth once daily Atorvastatin (Lipitor) 40 mg tablet Active 40 MG PO Daily 90 90 December 11, 2023 4:41pm take 1 tablet by christie th in the morning atorvastatin (LIPITOR) 20 mg tablet Take 1 tablet (20 mg total) by mouth in the morning. Active benzonatate 100 mg oral capsule (2 sources) Non-narcotic Antitussive Start: 12-05-2024 End: 12-12-2024 take 1 capsule by mouth three times daily Tessalon 100 mg Cap 100 mg = 1 cap(s), Oral, TID, X 7 day(s), # 21 cap(s), Refills(s) 0, Pharmacy: [facility]/pharmacy #[id number], 178, cm, 12/05/24 14:24:00 EDT, Height/Length Dosing, 117.3, kg, 12/05/24 14:24:00 EDT, Weight Dosing Start Date: 12/05/24 Stop Date: 12/12/24 Status: Ordered Quantity: 21.0 Unit: cap(s) Repeat number: 1 Indications: Acute upper respiratory infection, unspecified; Blood-Glucose Meter,Continuous (Freestyle [place] 3 [place]) misc (4 sources) Start: 08-13-2024 Blood-Glucose Meter,Continuous (Freestyle Tommie 3 [place]) misc Active 0 .ROUTE .MEDSUPPLY August 13, 2024 4:07pm As directed Start: 08-13-2024 End: 08-13-2024 Blood-Glucose Meter,Continuo us (Freestyle Tommie 3 [place]) misc Discontinued 0 .ROUTE .MEDSUPPLY August 13, 2024 4:06pm August 13, 2024 4:07pm As directed Start: 08-06-2024 End: 08-13-2024 Blood-Glucose Meter,Continuo us (Freestyle [place] 3 [place]) misc Discontinued 0 .ROUTE .MEDSUPPLY August 06, 2024 1:00am August 13, 2024 4:06pm As directed Start: 08-06-2024 Blood-Glucose Meter,Continuous (Freestyle [place] 3 [place]) misc Active 0 .ROUTE .MEDSUPPLY August 06, 2024 12:00am As directed Blood-Glucose Sensor (Freest yle Tommie 3 Sensor) device (17 sources) Start: 08-13-2024 Blood-Glucose Sensor (Freestyle Tommie 3 Sensor) device Active 0 .ROUTE .MEDSUPPLY August 13, 2024 4:07pm As directed Start: 08-13-2024 End: 08-13-2024 Blood-Glucose Sensor (Freest yle Tommie 3 Sensor) device Discontinued 0 .ROUTE .MEDSUPPLY 1 August 13, 2024 4:06pm August 13, 2024 4:07pm As directed Start: 08-06-2024 End: 08-13-2024 Blood-Glucose Sensor (Freest yle Tommie 3 Sensor) device Discontinued 0 .ROUTE .MEDSUPPLY 1 August 06, 2024 6:28pm August 13, 2024 4:06pm As directed Start: 08-06-2024 Blood-Glucose Sensor (Freestyle Tommie 3 Sensor) device Active 0 .ROUTE .MEDSUPPLY 1 August 06, 2024 5:28pm As directed Start: 08-06-2024 End: 08-06-2024 Blood-Glucose Sensor (Freest yle Tommie 3 Sensor) device Discontinued 0 .ROUTE .MEDSUPPLY 1 August 06, 2024 6:24pm August 06, 2024 6:29pm As directed Start: 08-06-2024 End: 08-06-2024 Blood-Glucose Sensor (Freest yle Tommie 3 Sensor) device Discontinued 0 .ROUTE .MEDSUPPLY August 06, 2024 5:24pm August 06, 2024 5:29pm As directed Start: 08-06-2024 End: 08-06-2024 Blood-Glucose Sensor (Freest yle Tommie 3 Sensor) device Discontinued 0 .ROUTE .MEDSUPPLY August 06, 2024 1:00am August 06, 2024 6:28pm As directed Start: 08-06-2024 End: 08-06-2024 Blood-Glucose Sensor (Freest yle Tommie 3 Sensor) device Discontinued 0 .ROUTE .MEDSUPPLY August 06, 2024 12:00am August 06, 2024 5:28pm As directed Start: 06-24-2024 End: 08-06-2024 Blood-Glucose Sensor (Freest yle Tommie 3 Sensor) device Discontinued 0 .ROUTE .MEDSUPPLY June 24, 2024 1:00am August 06, 2024 6:24pm Use to test home BS 4-6x daily. Start: 06-24-2024 End: 08-06-2024 Blood-Glucose Sensor (Freest yle Tommie 3 Sensor) device Discontinued 0 .ROUTE .MEDSUPPLY June 24, 2024 12:00am August 06, 2024 5:24pm Use to test home BS 4-6x daily. Start: 12-17-2023 End: 03-20-2024 Blood-Glucose Sensor (Freest yle Tommie 3 Sensor) device Discontinued 0 .ROUTE .MEDSUPPLY December 16, 2023 11:00pm March 20, 2024 10:19am Use to test home BS qid Start: 12-17-2023 End: 03-20-2024 Blood-Glucose Sensor (Freest yle Tommie 3 Sensor) device Discontinued 0 .ROUTE .MEDSUPPLY December 17, 2023 12:00am March 20, 2024 11:19am Use to test home BS qid Start: 12-17-2023 Blood-Glucose Sensor (Freestyle Tommie 3 Sensor) device Active 0 .ROUTE .MEDSUPPLY December 17, 2023 12:00am Use to test home BS qid boric acid 600 mg suppository (4 sources) Start: 01-16-2024 boric acid 600 mg suppository Indications: Mauri glabrata infection Insert 1 suppository into the vagina once daily at bedtime. 14 suppository 1 01/16/2024 Active 24 hr buPROPion hydrochloride 150 mg extended release oral tablet (20 sources) Aminoketone Start: 12-05-2024 buPROPion 150 mg/24 hours XL Tab 150 mg = 1 tab(s), Refills(s) 0 Start Date: 12/05/24 Status: Ordered Repeat number: 1 Start: 09-16-2024 take 1 tablet by christie once daily Bupropion Hcl 150 mg tablet extended release 24 hr Active 0 .ROUTE .COMPLEX September 16, 2024 6:50am TAKE 1 TABLET BY MOUTH EVERY DAY FOR 90 DAYS Start: 03-21-2024 End: 09-16-2024 take 1 tablet by mouth once daily Bupropion Hcl 150 mg tablet extended release 24 hr Discontinued 0 .ROUTE .COMPLEX March 21, 2024 1:55pm September 16, 2024 6:50am TAKE 1 TABLET BY MOUTH EVERY DAY FOR 90 DAYS Start: 03-21-2024 take 1 tablet by christie th once daily Bupropion Hcl 150 mg tablet extended release 24 hr Active 0 .ROUTE .COMPLEX March 21, 2024 12:55pm TAKE 1 TABLET BY MOUTH EVERY DAY FOR 90 DAYS Start: 03-21-2024 take 1 tablet by christie th once daily Bupropion Hcl Active 0 .ROUTE .COMPLEX March 21, 2024 1:55pm TAKE 1 TABLET BY MOUTH EVERY DAY FOR 90 DAYS Start: 10-06-2023 End: 03-05-2024 take 1 tablet by mouth once daily Bupropion Hcl 150 mg tablet extended release 24 hr Discontinued 0 .ROUTE .COMPLEX October 06, 2023 1:26pm March 05, 2024 3:48pm TAKE 1 TABLET BY MOUTH EVERY DAY FOR 90 DAYS Start: 09-06-2023 End: 03-21-2024 take 1 tablet by mouth once daily Bupropion Hcl 150 mg tablet extended release 24 hr Discontinued 150 MG PO Daily March 05, 2024 3:47pm March 21, 2024 1:55pm take 1 tablet by christie th every twenty-four hours canagliflozin 100 mg oral tablet (10 sources) Sodium-Glucose Cotransporter 2 Inhibitor take 1 tablet by mouth in the morning canagliflozin (INVOKANA) 100 mg tablet Take 1 tablet (100 mg total) by mouth in the morning. Active cephalexin 500 mg oral capsule (1 source) Cephalosporin Antibacterial Start: 12-21-19 24 End: 12-28-19 24 take 1 capsule by mouth in the morning, then take 1 capsule by mouth at bedtime CEPHalexin (KEFLEX) 500 mg capsule Indications: UTI (urinary tract infection), bacterial Take 1 capsule (500 mg total) by mouth in the morning and 1 capsule (500 mg total) before bedtime. Do all this for 7 days. 14 capsule 12/21/2023 12/28/2023 Active citalopram 40 mg oral tablet (10 sources) Serotonin Reuptake Inhibitor take 1 tablet by mouth in the morning citalopram (CeleXA) 40 mg tablet Take 1 tablet (40 mg total) by mouth in the morning. Active clonazePAM 1 mg oral tablet (20 sources) Benzodiazepine Start: 12-06-19 25 clonazepam 1 mg Tab 1 mg = 1 tab(s), Refills(s) 0 Start Date: 12/05/24 Status: Ordered Repeat number: 1 Start: 03-27-2024 End: 07-30-2024 take 1 tablet by mouth twice daily as needed for anxiety Clonazepam 1 mg tablet Discontinued 1 MG PO Twice daily as needed for anxiety 60 June 27, 2024 8:53am July 30, 2024 10:54pm Start: 03-05-2024 End: 03-27-2024 take 0.5 mg by mouth twice daily Clonazepam 1 mg tablet Discontinued 0.5 MG PO Twice daily March 05, 2024 3:20pm March 27, 2024 5:16pm Start: 03-05-2024 End: 03-27-2024 take 0.5 mg by mouth twice daily Clonazepam Discontinued 0.5 MG PO Twice daily March 05, 2024 3:20pm March 27, 2024 5:16pm Start: 12-27-2023 End: 03-05-2024 take 1 tablet by mouth twice daily Clonazepam 1 mg tablet Discontinued 1 MG PO Twice daily 60 December 27, 2023 8:44am March 05, 2024 3:24pm Start: 12-15-2023 End: 12-27-2023 take 1 tablet by mouth once daily 30 minutes before bedtime Clonazepam (Klonopin) 0.5 mg tablet Discontinued 0.5 MG PO Daily at bedtime December 15, 2023 12:00am December 27, 2023 8:46am administer 30 minutes before bedtime Start: 09-06-2023 End: 12-15-2023 take 1 tablet by mouth once daily 30 minutes before bedtime Clonazepam 2 mg tablet Discontinued 2 MG PO Daily at bedtime September 06, 2023 12:00am December 15, 2023 12:09pm administer 30 minutes before bedtime Start: 12-28-2022 clonazePAM 2 M G 1 tablet Orally at night for 30 days Dec, Active Start: 05-07-2019 End: 09-06-2023 take 0.5 mg by mouth once daily in the morning Clonazepam Discontinued 0.5 MG PO Every morning May 07, 2019 1:00am September 06, 2023 1:07pm Start: 05-07-2019 End: 09-06-2023 take 0.5 mg by mouth once daily in the morning Clonazepam 1 mg tablet Discontinued 0.5 MG PO Every morning May 07, 2019 1:00am September 06, 2023 1:07pm Start: 05-07-2019 End: 09-06-2023 take 1.5 mg by mouth once daily at bedtime Clonazepam 1 mg tablet Discontinued 1.5 MG PO Daily at bedtime May 07, 2019 1:00am September 06, 2023 1:08pm Start: 05-07-2019 End: 09-06-2023 take 1.5 mg by mouth once daily at bedtime Clonazepam Discontinued 1.5 MG PO Daily at bedtime May 07, 2019 1:00am September 06, 2023 1:08pm Start: 05-07-2019 take 1.5 mg by mouth once daily at bedtime Clonazepam Active 1.5 MG PO Daily at bedtime May 07, 2019 12:00am Start: 05-07-2019 take 1.5 mg by mouth once daily at bedtime Clonazepam Active 1.5 MG PO Daily at bedtime May 07, 2019 1:00am take 1 tablet by christie th twice daily as needed clonazePAM (KlonoPIN) 0.5 mg tablet Take 1 tablet (0.5 mg total) by mouth 2 (two) times a day as needed for seizures. Active clotrimazole 10 mg/ml vaginal cream (1 source) Azole Antifungal Start: 11-14-2023 End: 11-28-2023 clotrimazole (GYNE-LOTRIMIN) 1 % vaginal cream Indications: Mauri glabrata infection Insert 1 applicator into the vagina in the morning for 14 days. 45 g 2 11/14/2023 11/28/2023 Active dapagliflozin 10 mg oral tablet (20 sources) Sodium-Glucose Cotransporter 2 Inhibitor Start: 11-07-2023 FARXIGA 10 mg tablet 11/07/2023 Active Start: 11-07-2023 End: 12-15-2023 Farxiga 10 MG 11/07/2023 Act ronni Start: 05-07-2019 End: 11-07-2023 take 1 tablet by mouth once daily Dapagliflozin Propanediol (Farxiga) 5 mg tablet Discontinued 10 MG PO Daily September 06, 2023 1:08pm November 07, 2023 1:08pm take 1 tablet by christie th once daily Farxiga 10 MG TAKE 1 TABLET BY MOUTH EVERY DAY Active diphenhydrAMINE hydrochloride 25 mg oral capsule (2 sources) Histamine-1 Receptor Antagonist Start: 12-05-2024 take 2 capsules by mouth every six hours diphenhydrAMINE 25 mg Cap 50 mg = 2 cap(s), Oral, q6hr, Refills(s) 0 Start Date: 12/05/24 Status: Ordered Repeat number: 1 escitalopram 10 mg oral tablet (20 sources) Serotonin Reuptake Inhibitor Start: 12-05-2024 escitalopram 10 mg Tab 10 mg = 1 tab(s), Refills(s) 0 Start Date: 12/05/24 Status: Ordered Repeat number: 1 Start: 03-21-2024 End: 09-01-2024 take 1 tablet by mouth once daily Escitalopram Oxalate 10 mg tablet Active 0 .ROUTE .[facility] September 01, 2024 8:57am TAKE 1 TABLET BY MOUTH EVERY DAY FOR 90 DAYS Start: 09-22-2023 End: 03-05-2024 take 1 tablet by mouth once daily Escitalopram Oxalate 10 mg tablet Discontinued 0 .ROUTE .[facility] September 22, 2023 1:01pm March 05, 2024 3:48pm TAKE 1 TABLET BY MOUTH EVERY DAY FOR 90 DAYS Start: 09-06-2023 End: 03-21-2024 escitalopram (Lexapro) 10 MG tablet 09/22/2023 Active take 1 tablet by christie th every twenty-four hours Escitalopram Oxalate 10 MG 1 tablet Orally Once a day for 90 days Active etodolac 400 mg oral tablet (10 sources) Nonsteroidal Anti-inflammatory Drug take 1 tablet by mouth in the morning, then take 1 tablet by mouth at bedtime etodolac (LODINE) 400 mg tablet Take 1 tablet (400 mg total) by mouth in the morning and 1 tablet (400 mg total) before bedtime. Active gabapentin 100 mg oral capsule (2 sources) Anti-epileptic Agent Start: 12-06-19 gabapentin 100 mg Cap 100 mg = 1 cap(s), Refills(s) 0 Start Date: 12/05/24 Status: Ordered Repeat number: 1 Insulin Aspart U-100 100 unit/mL (3 mL) insulin pen (4 sources) Start: 09-17-19 Insulin Aspart U-100 100 unit/mL (3 mL) insulin pen Active 1 sliding scale dose SUBCUT Use as Directed September 16, 2024 12:15pm In place of Fiasp.AC/HS ICR 1:10 and ISS 1:30- Expect up to 70 u daily Start: 03-18-2024 End: 09-16-2024 Insulin Aspart U-100 100 uni t/mL (3 mL) insulin pen Discontinued 1 sliding scale dose SUBCUT Use as Directed March 18, 2024 12:00am September 16, 2024 12:16pm In place of Fiasp.AC/HS ICR 1:10 and ISS 1:30- Expect up to 70 u daily Start: 03-18-2024 Insulin Aspart U-100 100 unit/mL (3 mL) insulin pen Active 1 sliding scale dose SUBCUT Use as Directed March 17, 2024 11:00pm In place of Fiasp.AC/HS ICR 1:10 and ISS 1:30- Expect up to 70 u daily 3 ml insulin aspart, human 100 unt/ml pen injector (10 sources) Insulin Analog Start: 12-05-2024 Insulin Aspart FlexPen 100 units/mL injectable solution Refills(s) 0 Start Date: 12/05/24 Status: Ordered Repeat number: 1 Start: 03-18-2024 Insulin Aspart U-100 Active 1 sliding scale dose SUBCUT Use as Directed March 18, 2024 12:00am In place of Fiasp.AC/HS ICR 1:10 and ISS 1:30- Expect up to 70 u daily Start: 03-05-2024 Insulin Aspart (Niacinamide) (Fiasp Flextouch U-100 Insulin) 100 unit/mL (3 mL) insulin pen Active 0 SUBCUT Use as Directed 60 March 05, 2024 12:00am ICR 1:10, ISS 1:30 QID subcutaneously use as directed; Corrective scale AC/HS 1:50, QID. Expect up to 70u per day 3 ml insulin glargine 100 unt/ml pen injector (20 sources) Insulin Analog Start: 09-16-2024 Insulin Glargi ne (Lantus Solostar U-100 Insulin) 100 unit/mL (3 mL) insulin pen Active 30 UNIT SUBCUT Daily 60 September 16, 2024 12:00am Start: 08-02-2024 End: 09-16-2024 Insulin Glargine (Basaglar Kwikpen U-100 Insulin) 100 unit/mL (3 mL) insulin pen Discontinued 26 UNIT SUBCUT Twice daily 60 90 August 02, 2024 2:11pm September 16, 2024 12:14pm Start: 04-11-2024 End: 08-02-2024 Insulin Glargine (Basaglar Kwikpen U-100 Insulin) 100 unit/mL (3 mL) insulin pen Discontinued 50 UNIT SUBCUT Daily April 11, 2024 3:22pm August 02, 2024 2:04pm 26 u am and 24 u PM/ Can titrate to 60 u TDD, has written instructions Start: 04-11-2024 End: 04-11-2024 Insulin Glargine (Basaglar Kwikpen U-100 Insulin) 100 unit/mL (3 mL) insulin pen Discontinued 26 UNIT SUBCUT Twice daily April 11, 2024 2:20pm April 11, 2024 3:23pm Titrate to 40 u once daily, has written instructions Start: 03-18-2024 End: 04-11-2024 Insulin Glargine (Basaglar Kwikpen U-100 Insulin) 100 unit/mL (3 mL) insulin pen Discontinued 26 UNIT SUBCUT Every evening March 18, 2024 12:00am April 11, 2024 2:22pm Titrate to 40 u once daily, has written instructions Start: 03-05-2024 End: 03-20-2024 Insulin Glargine (Lantus Dior ostar U-100 Insulin) 100 unit/mL (3 mL) insulin pen Discontinued 26 UNIT SUBCUT Twice daily March 05, 2024 3:22pm March 20, 2024 11:19am Start: 09-19-2023 End: 03-05-2024 Insulin Glargine (Lantus Dior ostar U-100 Insulin) 100 unit/mL (3 mL) insulin pen Discontinued 25 UNIT SUBCUT Twice daily September 19, 2023 12:00am March 05, 2024 3:24pm Start: 05-07-2019 End: 09-06-2023 inject 35 [IU] by subcutaneous injection twice daily Insulin Glargine 100 unit/mL (3 mL) insulin pen Discontinued 35 UNIT SUBCUT Twice daily May 07, 2019 1:00am September 06, 2023 1:09pm inject 35 [IU] by bowen bcutaneous injection in the morning insulin glargine (Lantus) 100 UNIT/ML pen Inject 35 Units under the skin in the morning and 35 Units in the evening. Active Basaglar KwikPen 100 UNIT/ML INJECT 30 UNITS UNDER SKIN TWO TIMES DAILY Active levocetirizine dihydrochloride 5 mg oral tablet (3 sources) Histamine-1 Receptor Antagonist take 1 tablet by mouth every twenty-four hours Levocetirizine Dihydrochloride 5 MG 1 tablet in the evening Orally Once a day Active losartan potassium 50 mg oral tablet (20 sources) Angiotensin 2 Receptor Andi Start: 025 losartan 50 mg Tab 50 mg = 1 tab(s), Refills(s) 0 Start Date: 12/05/24 Status: Ordered Repeat number: 1 Start: 03-18-2024 take 1 tablet by christie th once daily Losartan 50 mg tablet Active 0 .ROUTE .COMPLEX March 18, 2024 9:03pm TAKE 1 TABLET BY MOUTH EVERY DAY Start: 03-18-2024 take 1 tablet by christie th once daily Losartan Active 0 .ROUTE .COMPLEX March 18, 2024 9:03pm TAKE 1 TABLET BY MOUTH EVERY DAY Start: 03-08-2024 End: 03-18-2024 take 1 tablet by mouth once daily Losartan 50 mg tablet Discontinued 50 MG PO Daily March 08, 2024 12:00am March 18, 2024 9:03pm Start: 12-15-2023 End: 03-05-2024 take 1 tablet by mouth once daily Losartan (Cozaar) 50 mg tablet Discontinued 50 MG PO Daily December 15, 2023 12:00am March 05, 2024 3:23pm Start: 05-07-2019 End: 12-15-2023 take 1 tablet by mouth once daily Losartan 25 mg Tablet Discontinued 25 MG PO Daily May 07, 2019 1:00am December 15, 2023 12:13pm melatonin 5 mg chewable tablet (20 sources) Start: 12-15-2023 melatonin 5 mg tablet,chewable Daily at bedtime 12/15/2023 Active Start: 12-15-2023 End: 09-16-2024 take 1 tablet by mouth once daily at bedtime as needed Melatonin 5 mg tablet Discontinued 5 MG PO Daily at bedtime as needed December 15, 2023 12:00am September 16, 2024 11:44am melatonin 2.5 mg tablet,chewable Chew 5 mg and swallow respiratory nightly. Active nitrofurantoin, macrocrystals 25 mg / nitrofurantoin, monohydrate 75 mg oral capsule (1 source) Nitrofuran Antibacterial Start: 11-14-2023 End: 11-19-2023 take 1 capsule by mouth in the morning, then take 1 capsule by mouth at bedtime nitrofurantoin, macrocrystal-monohydrate, (MACROBID) 100 mg capsule Indications: Acute cystitis without hematuria Take 1 capsule (100 mg total) by mouth in the morning and 1 capsule (100 mg total) before bedtime. Do all this for 5 days. 10 capsule 11/14/2023 11/19/2023 Active nizatidine 150 mg oral capsule (9 sources) Histamine-2 Receptor Antagonist take 1 capsule by mouth every twelve hours predniSONE 20 mg oral tablet (4 sources) Start: 12-07-2024 End: 12-12-2024 take 2 tablets by mouth once daily predniSONE 20 mg Tab 40 mg = 2 tab(s), Oral, Daily, X 5 day(s), # 10 tab(s), Refills(s) 0, Pharmacy: [facility]/pharmacy #[id number], 178, cm, 12/07/24 12:01:00 EDT, Height/Length Dosing, 117, kg, 12/07/24 12:01:00 EDT, Weight Dosing Start Date: 12/07/24 Stop Date: 12/12/24 Status: Ordered Quantity: 10.0 Unit: tab(s) Repeat number: 1 Indications: Bronchitis, not specified as acute or chronic; Start: 06-04-2024 End: 06-13-2024 take 2 tablets by mouth once daily, then take 1 tablet by mouth once daily at mealtime predniSONE (Deltasone) 20 MG tablet Indications: Chondromalacia, patella, left , Chondromalacia, patella, right Take 2 tablets (40 mg) by mouth Daily for 5 days, THEN 1 tablet (20 mg) Daily for 5 days. Take with food. 15 tablet 06/04/2024 06/13/2024 Active propylene glycol 6 mg/ml ophthalmic solution (10 sources) propylene glycol (SYSTANE BALANCE) 0.6 % drops Instill 1 drop to eye 3 (three) times a day. Active SITagliptin 100 mg oral tablet (10 sources) Dipeptidyl Peptidase 4 Inhibitor take 1 tablet by mouth in the morning sitaGLIPtin (JANUVIA) 100 mg tablet Take 1 tablet (100 mg total) by mouth in the morning. Active Completed/Discontinued Medications Medication Drug Class(es) Dates Sig (Normalized) Sig (Original) [id number] 200 actuat albuterol 0.09 mg/actuat metered dose inhaler (20 sources) beta2-Adrenergic Agonist Start: 02-26-2024 End: 04-11-2024 take 2 puff(s) by inhalation every six hours as needed for wheezing Albuterol Sulfate 90 mcg/actuation HFA aerosol inhaler Discontinued 0 .ROUTE .COMPLEX 8.5 February 26, 2024 8:45am April 11, 2024 2:16pm INHALE 2 PUFFS EVERY 6 HOURS NEEDED FOR SHORTNESS OF BREATH OR WHEEZING Start: 02-02-2024 End: 02-26-2024 take 1 puff(s) by inhalation every six hours as needed for wheezing Albuterol Sulfate 90 mcg/actuation HFA aerosol inhaler Discontinued 2 PUFF INHALATION Every 6 hours as needed for shortness of breath or wheezing 8.5 February 02, 2024 12:00am February 26, 2024 8:45am take 1 puff(s) by in halation every four hours as needed take 1 puff(s) by in halation every four hours as needed take 1 puff(s) by in halation every four hours as needed azithromycin 250 mg oral tablet (1 source) Macrolide Antimicrobial Start: 12-07-2024 End: 12-12-2024 azithromycin 250 mg Tab 250 mg = 1 tab(s), Oral, As Directed, Take 2 tablet p.o. once daily on day 1, then take 1 tablet p.o. once daily for the next 4 days., X 5 day(s), # 6 tab(s), Refills(s) 0, Pharmacy: [facility]/pharmacy #[id number], 178, cm, 12/07/24 12:01:00 EDT, Height/Length Dosing, 117, kg, 12/07/24 12:01:00 EDT, Weight Dosing Start Date: 12/07/24 Stop Date: 12/12/24 Status: Ordered Quantity: 6.0 Unit: tab(s) Repeat number: 1 Indications: Bronchitis, not specified as acute or chronic; Blood-Glucose Sensor (Freestyle Tommie 3 Plus Sensor) device (10 sources) Start: 03-18-2024 End: 08-06-2024 Blood-Glucose Sensor (Freestyle Tommie 3 Plus Sensor) device Discontinued 0 .Route March 18, 2024 1:57pm August 06, 2024 6:28pm As directed change every 15 days Start: 03-18-2024 End: 08-06-2024 Blood-Glucose Sensor (Freest yle Tommie 3 Plus Sensor) device Discontinued 0 .Route March 18, 2024 12:57pm August 06, 2024 5:28pm As directed change every 15 days Start: 03-18-2024 Blood-Glucose Sensor (Freestyle Tommie 3 Plus Sensor) device Active 0 .Route March 18, 2024 12:57pm As directed change every 15 days Start: 03-18-2024 Blood-Glucose Sensor (Freestyle Tommie 3 Plus Sensor) device Active 0 .Route March 18, 2024 1:57pm As directed change every 15 days Start: 03-18-2024 End: 03-18-2024 Blood-Glucose Sensor (Freest yle Tommie 3 Plus Sensor) device Discontinued 0 .Route March 17, 2024 11:00pm March 18, 2024 12:59pm As directed Start: 03-18-2024 End: 03-18-2024 Blood-Glucose Sensor (Freest yle Tommie 3 Plus Sensor) device Discontinued 0 .Route March 18, 2024 12:00am March 18, 2024 1:59pm As directed 5 ml bupivacaine hydrochloride 5 mg/ml injection (4 sources) Amide Local Anesthetic Start: 06-27-2024 End: 06-27-2024 bupivacaine PF (Marcaine) 0.5 % injection 1 mL Start: 06-27-2024 End: 06-27-2024 1 mL, Injection, Once PRN Pr ocedure, Starting on Mon06/27/24 at 1212, For 1 dose clobetasol propionate 0.5 mg/ml topical cream (20 sources) Corticosteroid Start: 03-05-2024 End: 03-05-2024 Clobetasol 0.05 % cream Discontinued 1 APPLIC TOPICAL Daily as needed March 05, 2024 12:00am March 05, 2024 3:47pm Start: 12-15-2023 End: 09-16-2024 Clobetasol 0.05 % cream Disc ontinued 1 APPLIC TOPICAL Twice daily December 15, 2023 12:00am September 16, 2024 11:43am Start: 11-09-2023 clobetasoL (TE MOVATE) 0.05 % cream Indications: Lichen sclerosus Apply 1 Application topically in the morning and 1 Application before bedtime. 45 g 2 11/09/2023 Active clobetasol (Mehdi vate) 0.05 % cream Active doxycycline hyclate 100 mg oral capsule (8 sources) Tetracycline-class Drug Start: 08-12-2024 End: 09-16-2024 take 1 capsule by mouth twice daily Doxycycline Hyclate 100 mg capsule Discontinued 100 MG PO Twice daily August 12, 2024 1:00am September 16, 2024 11:43am Start: 02-02-2024 End: 04-11-2024 take 1 capsule by mouth twice daily Doxycycline Hyclate 100 mg capsule Discontinued 100 MG PO Twice daily February 02, 2024 12:00am April 11, 2024 2:18pm DULoxetine 60 mg delayed release oral capsule (14 sources) Serotonin and Norepinephrine Reuptake Inhibitor Start: 04-11-2024 End: 09-16-2024 take 1 capsule by mouth once daily Duloxetine 60 mg capsule,delayed release(DR/EC) Discontinued 60 MG PO Daily April 11, 2024 12:00am September 16, 2024 11:44am Start: 05-07-2019 End: 09-06-2023 take 1 capsule by mouth once daily Duloxetine (Cymbalta) 60 mg Capsule,Delayed Release(Dr/Ec) Discontinued 60 MG PO Daily May 07, 2019 1:00am September 06, 2023 1:09pm empagliflozin 10 mg oral tablet (20 sources) Sodium-Glucose Cotransporter 2 Inhibitor Start: 12-18-2023 End: 01-03-2024 take 1 tablet by mouth once daily Empagliflozin (Jardiance) 10 mg tablet Discontinued 10 MG PO Daily 30 December 20, 2023 1:03pm January 03, 2024 1:04pm famotidine 20 mg oral tablet (20 sources) Histamine-2 Receptor Antagonist Start: 03-05-2024 End: 09-16-2024 take 1 tablet by mouth once daily as needed Famotidine (Pepcid) 20 mg tablet Discontinued 20 MG PO Daily as needed for indigestion March 05, 2024 3:22pm September 16, 2024 11:44am Start: 05-07-2019 End: 03-05-2024 take 1 tablet by mouth twice daily Famotidine (Pepcid) 20 mg Tablet Discontinued 20 MG PO Twice daily May 07, 2019 1:00am March 05, 2024 3:24pm take 1 tablet by christie th every twenty-four hours Fluticasone Furoate-Vilanterol (17 sources) Corticosteroid, beta2-Adrenergic Agonist Start: 09-06-2023 End: 12-15-2023 take 1 puff(s) by inhalation once daily Fluticasone Furoate-Vilanterol (Breo Ellipta) 200-25 mcg/dose blister with device Discontinued 1 PUFF INHALATION Daily September 05, 2023 11:00pm December 15, 2023 11:12am FreeTextSi puff Inhalation Once a day; Note: Source Status: Taking; Provider: Sae Fields ( ) Start: 09-06-2023 End: 12-15-2023 take 1 puff(s) by inhalation once daily Fluticasone Furoate-Vilanterol (Breo Ellipta) 200-25 mcg/dose blister with device Discontinued 1 PUFF INHALATION Daily September 06, 2023 12:00am December 15, 2023 12:12pm FreeText[employer] puff Inhalation Once a day; Note: Source Status: Taking; Provider: Sae Fields ( ) take 1 puff(s) by in halation once daily Breo Ellipta 200-25 MCG/ACT 1 puff Inhalation Once a day Active glimepiride 1 mg oral tablet (20 sources) Sulfonylurea Start: 03-20-2024 End: 04-11-2024 take 1 tablet by mouth once daily Glimepiride 1 mg tablet Discontinued 1 MG PO Daily March 20, 2024 12:00am April 11, 2024 3:19pm Start: 03-05-2024 End: 03-20-2024 take 1 tablet by mouth twice daily Glimepiride 1 mg tablet Discontinued 1 MG PO Twice daily March 05, 2024 3:41pm March 20, 2024 11:21am On Hold: therapy change Start: 01-26-2024 End: 03-05-2024 take 1 tablet by mouth once daily Glimepiride 1 mg tablet Discontinued 0 .ROUTE .COMPLEX January 26, 2024 3:25pm March 05, 2024 3:41pm TAKE 1 TABLET BY MOUTH DAILY Start: 01-03-2024 End: 01-26-2024 take 1 tablet by mouth once daily Glimepiride 1 mg tablet Discontinued 1 MG PO Daily January 03, 2024 12:00am January 26, 2024 3:25pm 3 ml liraglutide 6 mg/ml pen injector (20 sources) GLP-1 Receptor Agonist Start: 12-17-2023 End: 12-20-2023 inject 0.6 mg by subcutaneous injection once daily, then inject 1.2 mg by subcutaneous injection every week Liraglutide (Victoza 2-Jessica) 0.6 mg/0.1 mL (18 mg/3 mL) pen injector Discontinued 0 SUBCUT Daily 12 23December 17, 2023 12:00am December 20, 2023 11:42am inject 0.6mg subcutaneously daily x 7 days then increase to 1.2mg weekly. Start: 11-06-2023 End: 11-07-2023 inject 0.6 mg by subcutaneous injection once daily, then inject 1.8 mg by subcutaneous injection once daily Liraglutide (Victoza 3-Jessica) 0.6 mg/0.1 mL (18 mg/3 mL) pen injector Discontinued 0 SUBCUT .COMPLEX November 06, 2023 12:00am November 07, 2023 3:44pm inject 0.6mg subcutaneously once daily x 7 days; then 1.2mg daily, not to exceed 1.8mg/day subcut Start: 08-09-2023 End: 11-05-2024 VICTOZA 3-JESSICA 0.6 mg/0.1 mL (18 mg/3 mL) pen injector INJECT 1.8MG SUBCUTANEOUSLY ONCE DAILY 08/09/2023 Active Start: 05-07-2019 End: 09-06-2023 inject 0.6 mg by subcutaneous injection once daily Liraglutide 0.6 mg/0.1 mL (18 mg/3 mL) pen injector Discontinued 0.6 MG SUBCUT Daily May 07, 2019 1:00am September 06, 2023 1:11pm inject 1.8 mg by sub cutaneous injection once daily Victoza 18 MG/3ML INJECT 1.8MG SUBCUTANEOUSLY ONCE DAILY Active Victoza 18mg/3ml 1.8mg injection daily Active 1 ml methylPREDNISolone acetate 40 mg/ml injection (4 sources) Corticosteroid Start: 06-27-2024 End: 06-27-2024 methylPREDNISolone acetate (DEPO-Medrol) injection 40 mg Start: 06-27-2024 End: 06-27-2024 40 mg, Intra-articular, Once PRN Procedure, Starting on Mon06/27/24 at 1212, For 1 dose pioglitazone 30 mg oral tablet (20 sources) Peroxisome Proliferator Receptor alpha Agonist, Peroxisome Proliferator Receptor gamma Agonist, Thiazolidinedione Start: 05-07-2019 End: 09-06-2023 take 1 tablet by mouth once daily Pioglitazone (Actos) 30 mg Tablet Discontinued 30 MG PO Daily May 07, 2019 1:00am September 06, 2023 1:10pm Semaglutide (Rybelsus) 3 mg tablet (7 sources) Start: 12-20-2023 End: 01-03-2024 take 1 tablet by mouth once daily Semaglutide (Rybelsus) 3 mg tablet Discontinued 3 MG PO Daily 30 December 19, 2023 11:00pm January 03, 2024 12:05pm Start: 12-20-2023 End: 01-03-2024 take 1 tablet by mouth once daily Semaglutide (Rybelsus) 3 mg tablet Discontinued 3 MG PO Daily December 20, 2023 12:00am January 03, 2024 1:05pm Tirzepatide (8 sources) Start: 11-07-2023 End: 12-05-2023 Tirzepatide (Mounjaro) 2.5 m g/0.5 mL pen injector Discontinued 2.5 MG SUBCUT every week 2 November 06, 2023 11:00pm December 05, 2023 12:37pm Start: 11-07-2023 End: 12-05-2023 Tirzepatide (Mounjaro) 2.5 m g/0.5 mL pen injector Discontinued 2.5 MG SUBCUT every week 2 November 07, 2023 12:00am December 05, 2023 1:37pm Tirzepatide (8 sources) Start: 12-05-2023 End: 12-15-2023 Tirzepatide 5 mg/0.5 mL pen injector Discontinued 5 MG SUBCUT every week 2 December 05, 2023 1:37pm December 15, 2023 12:13pm Start: 12-05-2023 End: 12-15-2023 Tirzepatide 5 mg/0.5 mL pen injector Discontinued 5 MG SUBCUT every week 2 December 05, 2023 12:37pm December 15, 2023 11:13am Start: 12-05-2023 End: 12-15-2023 inject 5 mg by subcutaneous injection every week Tirzepatide Discontinued 5 MG SUBCUT every week 2 December 05, 2023 1:37pm December 15, 2023 12:13pm Problems Active Problems Problem Classification Problem Date Documented Date Episodic/Chronic Acute bronchitis (15 sources) Acute bronchitis; Translations: [Acute bronchitis due to other specified organisms] 02-02-2024 Episodic Administrative/social admission (12 sources) Patient encounter status; Translations: [Dietary counseling and surveillance] 03-05-2024 Episodic Anxiety disorders (12 sources) Generalized anxiety disorder; Translations: [Generalized anxiety disorder] Chronic Asthma (20 sources) Uncomplicated mild persistent asthma; Translations: [Mild persistent asthma, uncomplicated] Resolved: 03-03-2021 Chronic Bacterial infection; unspecified site (4 sources) Bacterial infectious disease; Translations: [Bacterial infection, unspecified, in conditions classified elsewhere and of unspecified site] Onset: 11-06-2017 Episodic Chronic kidney disease (20 sources) Chronic kidney disease stage 3A ; Translations: [Chronic kidney disease, stage 3a] 03-05-2024 Chronic Chronic obstructive pulmonary disease and bronchiectasis (1 source) Bronchitis; Translations: [Bronchitis, not specified as acute or chronic] Onset: 12-07-2024 Episodic Diabetes mellitus with complications (20 sources) Hyperglycemia due to type 2 diabetes mellitus; Translations: [Type 2 diabetes mellitus with hyperglycemia] Onset: 03-08-2013 Chronic Diabetes mellitus without complication (2 sources) Type 2 diabetes mellitus without complication; Translations: [Diabetes mellitus without mention of complication, type II or unspecified type, not stated as uncontrolled] Onset: 11-10-2016 Chronic Disorders of lipid metabolism (20 sources) Hypercholesterolemia; Translations: [Pure hypercholesterolemia, unspecified] Onset: 01-20-2015 Chronic E Codes: Adverse effects of medical drugs (2 sources) Adverse effect of other viral vaccines, initial encounter; Translations: [Adverse effect of other viral vaccines, initial encounter] Episodic Esophageal disorders (4 sources) Gastro-esophageal reflux disease with esophagitis; Translations: [Gastro-esophageal reflux disease with esophagitis, without bleeding] Onset: 04-02-2015 Chronic Essential hypertension (20 sources) Essential hypertension; Translations: [Essential (primary) hypertension] Onset: 12-05-2024 Resolved: 11-25-2019 Chronic Joint disorders and dislocations; trauma-related (13 sources) Chondromalacia of left patella; Translations: [Chondromalacia patellae, left knee] 06-04-2024 Chronic Joint disorders and dislocations; trauma-related (6 sources) Chondromalacia of right patella; Translations: [Chondromalacia patellae, right knee] 06-04-2024 Chronic Menopausal disorders (3 sources) Postmenopausal atrophic vaginitis; Translations: [Atrophic vaginitis] Onset: 01-11-2024 11-09-2023 Chronic Mood disorders (20 sources) Major depression single episode, in partial remission; Translations: [Major depressive disorder, single episode, in partial or unspecified remission] Onset: 04-15-2015 09-06-2023 Chronic Nonspecific chest pain (4 sources) Chest pain; Translations: [Other chest pain] Onset: 07-27-2015 Episodic Nutritional deficiencies (12 sources) Vitamin D deficiency; Translations: [Vitamin D deficiency, unspecified] 03-05-2024 Chronic Osteoarthritis (10 sources) Osteoarthritis; Translations: [Unspecified osteoarthritis, unspecified site] Onset: 08-07-2013 06-27-2024 Chronic Other aftercare (9 sources) Long-term current use of insulin; Translations: [long-term (current) use of insulin] Episodic Other aftercare (1 source) long-term (current) use of insulin Episodic Other congenital anomalies (2 sources) Congenital ichthyosis of skin; Translations: [Congenital ichthyosis, unspecified] Onset: 05-10-2013 Chronic Other connective tissue disease (2 sources) Plantar fascial fibromatosis; Translations: [Plantar fascial fibromatosis] Episodic Other diseases of veins and lymphatics (2 sources) Venous insufficiency of leg; Translations: [Venous insufficiency (chronic) (peripheral)] 06-20-2024 Episodic Other female genital disorders (2 sources) Unspecified dyspareunia; Translations: [Unspecified dyspareunia] Onset: 01-11-2024 Chronic Other female genital disorders (3 sources) Pain in female genitalia on intercourse; Translations: [Unspecified dyspareunia] 11-09-2023 Chronic Other female genital disorders (2 sources) Other specified noninflammatory disorders of vagina; Translations: [Other specified noninflammatory disorders of vagina] Onset: 11-09-2023 Episodic Other lower respiratory disease (4 sources) Cough; Translations: [Cough, unspecified] 09-16-2024 Episodic Other non-traumatic joint disorders (2 sources) Arthritis of left knee 06-27-2024 Chronic Other non-traumatic joint disorders (12 sources) Pain in right knee; Translations: [Pain in joint, lower leg] 06-04-2024 Episodic Other nutritional; endocrine; and metabolic disorders (9 sources) Simple obesity ; Translations: [Other obesity due to excess calories] Chronic Other nutritional; endocrine; and metabolic disorders (1 source) Other obesity due to excess calories Chronic Other nutritional; endocrine; and metabolic disorders (12 sources) Body mass index 30+ - obesity; Translations: [Body mass index (BMI) 35.0-35.9, adult] 09-06-2023 Chronic Other nutritional; endocrine; and metabolic disorders (4 sources) Severe obesity; Translations: [Morbid (severe) obesity due to excess calories] Chronic Other nutritional; endocrine; and metabolic disorders (2 sources) Morbid (severe) obesity due to excess calories Chronic Other nutritional; endocrine; and metabolic disorders (2 sources) Body mass index (BMI) 35.0-35.9, adult Chronic Other nutritional; endocrine; and metabolic disorders (8 sources) Obese class II; Translations: [Body mass index (BMI) 38.0-38.9, adult] Onset: 07-27-2015 Chronic Other nutritional; endocrine; and metabolic disorders (7 sources) Obesity; Translations: [Obesity, unspecified] Resolved: 03-03-2021 03-20-2024 Chronic Other nutritional; endocrine; and metabolic disorders (2 sources) Body mass index 40+ - severely obese; Translations: [Body Mass Index 40.0-44.9, adult] Onset: 07-27-2015 Chronic Other nutritional; endocrine; and metabolic disorders (8 sources) Obesity caused by energy imbalance; Translations: [Morbid (severe) obesity due to excess calories] 09-06-2023 Chronic Other nutritional; endocrine; and metabolic disorders (6 sources) Obesity, unspecified; Translations: [Obesity, unspecified] 03-20-2024 Chronic Other screening for suspected conditions (not mental disorders or infectious disease) (8 sources) Encounter for screening mammogram for malignant neoplasm of breast; Translations: [Encounter for screening for malignant neoplasm of colon] Onset: 04-22-2022 Episodic Other skin disorders (4 sources) Lichen sclerosus et atrophicus; Translations: [Circumscribed scleroderma] Onset: 11-09-2023 11-09-2023 Chronic Other upper respiratory infections (7 sources) Acute maxillary sinusitis; Translations: [Acute recurrent maxillary sinusitis] Onset: 11-06-2017 Episodic Residual codes; unclassified (1 source) Family history of malignant neoplasm of other organs or systems; Translations: [FAM HX MALIG NEOPLASM OTH ORGN/SYS] Onset: 04-27-2022 Episodic Residual codes; unclassified (2 sources) Procedure not done; Translations: [Procedure and treatment not carried out because of patient's decision for unspecified reasons] Episodic Spondylosis; intervertebral disc disorders; other back problems (4 sources) Lumbosacral spondylosis without myelopathy; Translations: [Spondylosis without myelopathy or radiculopathy, lumbosacral region] Onset: 01-13-2014 Chronic Unclassified (3 sources) Acute candidiasis of vulva and vagina; Translations: [Acute candidiasis of vulva and vagina] Onset: 11-09-2023 Unclassified (1 source) persistent yeast and BV Onset: 11-09-2023 Unclassified (4 sources) Acute pain of left knee 08-15-2024 Unclassified (2 sources) Preprocedural examination done 11-05-2024 Urinary tract infections (7 sources) Acute cystitis without hematuria; Translations: [Urinary tract infection, site not specified] Onset: 12-07-2023 12-07-2023 Episodic Past or Other Problems Problem Classification Problem Date Documented Date Episodic/Chronic Abdominal pain (6 sources) Abdominal pain; Translations: [Unspecified abdominal pain] Onset: 10-09-2013 Episodic Cardiac dysrhythmias (2 sources) Palpitations; Translations: [Palpitations] Onset: 08-25-2015 Episodic Chronic kidney disease (1 source) Chronic kidney disease Conditions associated with dizziness or vertigo (2 sources) Dizziness and giddiness; Translations: [Dizziness and giddiness] Onset: 04-06-2015 Episodic Genitourinary symptoms and ill-defined conditions (6 sources) Dysuria; Translations: [Scalding pain on urination ] Onset: 11-09-2023 11-09-2023 Episodic Headache; including migraine (2 sources) Headache; Translations: [Headache, unspecified] Onset: 09-06-2013 Episodic Immunizations and screening for infectious disease (2 sources) Contact with and (suspected) exposure to other viral communicable diseases; Translations: [Contact with and (suspected) exposure to COVID-19] Resolved: 08-19-2020 Episodic Intestinal infection (2 sources) Infectious colitis, enteritis and gastroenteritis; Translations: [Infectious gastroenteritis and colitis, unspecified] Onset: 12-23-2013 Episodic Joint disorders and dislocations; trauma-related (2 sources) Dislocations, sprains and strains involving multiple regions of lower limb(s); Translations: [Sprain and strain of unspecified site of knee and leg] Onset: 02-23-2015 Episodic Malaise and fatigue (4 sources) Fatigue; Translations: [Other fatigue] Onset: 01-20-2015 Resolved: 03-03-2021 Episodic Mycoses (8 sources) Candidiasis, unspecified; Translations: [Candidal vulvovaginitis] Onset: 12-07-2023 11-09-2023 Episodic Noninfectious gastroenteritis (2 sources) Non-infective enteritis and colitis; Translations: [Noninfective gastroenteritis and colitis, unspecified] Onset: 09-06-2013 Episodic Open wounds of extremities (2 sources) Late effect of open wound of extremities without tendon injury; Translations: [Laceration with foreign body, left foot, sequela] Onset: 01-29-2019 Episodic Other and unspecified benign neoplasm (2 sources) Lipoma (clinical); Translations: [Lipoma of other specified sites] Onset: 08-25-2015 Episodic Other connective tissue disease (2 sources) Tear of right rotator cuff; Translations: [Unspecified rotator cuff tear or rupture of right shoulder, not specified as traumatic] Onset: 08-07-2013 Episodic Other diseases of veins and lymphatics (2 sources) Peripheral venous insufficiency; Translations: [Venous insufficiency (chronic) (peripheral)] Onset: 01-20-2015 Episodic Other disorders of stomach and duodenum (2 sources) Disorder of function of stomach; Translations: [Dyspepsia and other specified disorders of function of stomach] Onset: 10-09-2013 Episodic Other female genital disorders (2 sources) Pruritus of vagina; Translations: [Other specified noninflammatory disorders of vagina] 11-09-2023 Episodic Other female genital disorders (2 sources) Vaginal irritation; Translations: [Other specified noninflammatory disorders of vagina] 12-07-2023 Episodic Other injuries and conditions due to external causes (2 sources) Other injury of unspecified body region, subsequent encounter; Translations: [Other injury of unspecified body region, subsequent encounter] Onset: 02-11-2019 Episodic Other lower respiratory disease (2 sources) Dyspnea; Translations: [Dyspnea, unspecified] Onset: 04-15-2015 Episodic Other screening for suspected conditions (not mental disorders or infectious disease) (2 sources) Imaging result abnormal; Translations: [Abnormal findings on diagnostic imaging of other specified body structures] Resolved: 03-03-2021 Chronic Other skin disorders (2 sources) Nail bed infection; Translations: [Onychia and paronychia of toe] Onset: 03-08-2013 Episodic Residual codes; unclassified (2 sources) Requires influenza virus vaccination; Translations: [Need for prophylactic vaccination and inoculation, Influenza] Onset: 03-30-2018 Episodic Spondylosis; intervertebral disc disorders; other back problems (4 sources) Cervical radiculopathy; Translations: [Radiculopathy, cervical region] Onset: 01-13-2014 Episodic Sprains and strains (6 sources) Strain of muscle of right shoulder; Translations: [Strain of muscle(s) and tendon(s) of the rotator cuff of right shoulder, initial encounter] Onset: 09-19-2013 Resolved: 03-03-2021 Episodic Superficial injury; contusion (4 sources) Contusion of right knee; Translations: [Contusion of right knee, initial encounter] Onset: 08-07-2013 Episodic Unclassified (2 sources) Post-acute COVID-19 (disorder); Translations: [Post COVID-19 condition, unspecified] Resolved: 03-03-2021 Unclassified (2 sources) Long-term current use of drug therapy; Translations: [Long-term (current) use of other medications] Onset: 02-19-2019 Viral infection (2 sources) Disease caused by 2019-nCoV; Translations: [COVID-19] Resolved: 03-03-2021 Results Test Name Value Interpretation Reference Range Facility Ambulatory Visit Summaryon 0 12-07-2024 Ambulatory Visit Summary Ambulatory Visit Summary PATRICIA PLAZA :1960 Visit Date:12/07/2024 Ambulatory Visit Instructions Your Diagnosis Bronchitis Your Care Team Attending Physician - Ari Sánchez PA-C Primary Care Physician - SAE HINDS, DONNIE This Is Your Medications List atorvastatin (atorvastatin 40 mg Tab) azithromycin (azithromycin 250 mg Tab) benzonatate (Tessalon 100 mg Cap) buPROPion (buPROPion 150 mg/24 hours XL Tab) clonazepam (clonazepam 1 mg Tab) diphenhydrAMINE (diphenhydrAMINE 25 mg Cap) escitalopram (escitalopram 10 mg Tab) gabapentin (gabapentin 100 mg Cap) insulin aspart (Insulin Aspart FlexPen 100 units/mL injectable solution) insulin glargine (Insulin Glargine Prefilled Pen 100 units/mL subcutaneous solution) losartan (losartan 50 mg Tab) predniSONE (predniSONE 20 mg Tab) Discharge Vitals Temperature (Oral) 36.2 ???C Heart Rate (Peripheral) 80 Blood Pressure 136/82 Height 178 cm Height 70 in Weight 117 kg Weight 257.941 lb BMI 36.93 Medications What How Much When Why Instructions New azithromycin (azithromycin 250 mg Tab) 1 Tablets By Mouth As Directed Bronchitis Duration: 5 Days Take 2 tablet p.o. once daily on day 1, then take 1 tablet p.o. once daily for the next 4 days. Pickup at [facility]/pharmacy #[id number] New predniSONE (predniSONE 20 mg Tab) 2 Tablets By Mouth Every day Bronchitis Duration: 5 Days Pickup at [facility]/pharmacy #[id number] Unchanged atorvastatin (atorvastatin 40 mg Tab) 1 Tablets Unchanged benzonatate (Tessalon 100 mg Cap) 1 Capsules By Mouth 3 times a day Viral URI with cough Duration: 7 Days Unchanged buPROPion (buPROPion 150 mg/ 24 hours XL Tab) 1 Tablets Unchanged clonazepam (clonazepam 1 mg Tab) 1 Tablets Unchanged diphenhydrAMINE (diphenhydrAMINE 25 mg Cap) 2 Capsules By Mouth Every 6 hours Unchanged escitalopram (escitalopram 10 mg Tab) 1 Tablets Unchanged gabapentin (gabapentin 100 mg Cap) 1 Capsules Unchanged insulin aspart (Insulin Aspart FlexPen 100 units/ mL injectable solution) Unchanged insulin glargine (Insulin Glargine Prefilled Pen 100 units/ mL subcutaneous solution) Unchanged losartan (losartan 50 mg Tab) 1 Tablets Pharmacy Information [facility]/pharmacy #[id number]: [address], [place] [phone] Allergies Percocet (hives) codeine morphine (Hives) predniSONE (swelling in ankles) Patient Survey You may receive a survey via text or e-mail asking about your office visit. Please share your experience with us by completing your survey. We appreciate your feedback and thank you for choosing us for your care. Normal [facility] Family Medicine Office/Clini c Noteon 12-07-2024 Family Medicine Office/Clinic Note Family Medicine Office/Clinic Note Chief Complaint cough, headache, eye watery HPI Staff 64 year old female complaints of a productive cough with yellow phlegm- worse when pt is laying down, O2 was 84% last night when pt was laying down, this morning 95%, migraine, right eye is watery and crusted when pt woke up this morning pt was seen here 12/05 for cough and was told if she got any worse to return History of Present Illness Patient is a 64-year-old female who comes to clinic today for evaluation of cough and congestion. Patient was seen in our clinic 2 days ago with the same symptoms that she has today. At that time she was diagnosed with a viral upper respiratory infection and was given Tessalon Perles for symptomatic relief. Patient states that her symptoms started on Monday of this week. She was told that if her symptoms worsen, can come back to the clinic. Patient reports that her symptoms have worsened. She states that she is coughing more bringing up more sputum. She states that she is bringing up some sputum that she feels like she is drowning at times. She had a coughing fit last night and checked her pulse ox afterwards and was only 84%. In the office today she is at 94% and at home was 95% this morning. Patient reports she is still having significant cough and is also started with right eye watering and a migraine last night. No fever at any point. Patient was wheezing last night, but has not noticed that this morning. No significant shortness of breath. She has been taking [id number] cough and flu medication with minimal relief. She has continued with runny nose and drainage and hoarse voice. No ear pain at any point. Throat does hurt as well. Review of Systems PHQ Score Initial Depression Screen Score: 0 SCORE ROS negative unless otherwise stated in HPI. Physical Exam Vitals & Measurements T: 36.2 ???C(Oral) HR: 80(Peripheral) BP: 136/82 SpO2: 94% HT: 70 in HT: 178 cm WT: 257.941 lb WT: 117 kg BMI: 36.93 General: alert, no acute distress Skin: warm, dry intact Head: atraumatic, normocephalic Neck: Trachea midline, no cervical lymphadenopathy Eye: normal conjunctiva, sclera clear ENMT: oral mucosa moist Throat: mild erythema, no swelling, no exudate, mild drainage on back of throat. Left ear: EAC clear, TM shows no bulging or erythema. Right ear: EAC clear, TM shows no bulging or erythema. Cardiovascular: regular rate and rhythm, nomurmur Respiratory: Lungs: Inspiratory wheeze in right lower lobe. All other lobes clear to auscultation, respirations non labored Neurological: oriented x 4, LOC appropriate for age, speech normal Psychiatric: cooperative, affect appropriate for age, normal judgement, normal psychiatric thoughts. Assessment/Plan 1. Bronchitis (J40: Bronchitis, not specified as acute or chronic) Patient has bronchitis at this time she does have wheezing in her right lower lobe. Patient was seen 2 days ago and her symptoms have worsened since that time, so we will treat as bacterial at this time. Will send in azithromycin x 5 days along with prednisone x 5 days to see if this helps resolve her symptoms. Patient can continue with [id number] medications, plenty of rest, plenty of fluids. Ordered: azithromycin, 250 mg = 1 tab(s), Oral, As Directed, Take 2 tablet p.o. once daily on day 1, then take 1 tablet p.o. once daily for the next 4 days., X 5 day(s), # 6 tab(s), Refills(s) 0, Pharmacy: [facility]/pharmacy #[id number], 178, cm, 12/07/24 12:01:00 EDT, Height/Length Do... predniSONE, 40 mg = 2 tab(s), Oral, Daily, X 5 day(s), # 10 tab(s), Refills(s) 0, Pharmacy: [facility]/pharmacy #[id number], 178, cm, 12/07/24 12:01:00 EDT, Height/Length Dosing, 117, kg, 12/07/24 12:01:00 EDT, Weight Dosing Portions of this record may have been created with voice recognition artificial intelligence software, specifically [employer], [email or web address] and or [employer]. Substitutions may have occurred due to the inherent limitations of voice recognition and artificial intelligence software. Follow-up No qualifying data available Problem List/Past Medical History Ongoing No qualifying data Historical No qualifying data Medications atorvastatin 40 mg Tab, 40 mg= 1 tab(s) azithromycin 250 mg Tab, 250 mg= 1 tab(s), Oral, As Directed buPROPion 150 mg/24 hours XL Tab, 150 mg= 1 tab(s) clonazepam 1 mg Tab, 1 mg= 1 tab(s) diphenhydrAMINE 25 mg Cap, 50 mg= 2 cap(s), Oral, q6hr escitalopram 10 mg Tab, 10 mg= 1 tab(s) gabapentin 100 mg Cap, 100 mg= 1 cap(s) Insulin Aspart FlexPen 100 units/mL injectable solution Insulin Glargine Prefilled Pen 100 units/mL subcutaneous solution losartan 50 mg Tab, 50 mg= 1 tab(s) predniSONE 20 mg Tab, 40 mg= 2 tab(s), Oral, Daily Tessalon 100 mg Cap, 100 mg= 1 cap(s), Oral, TID Allergies Percocet (hives) codeine morphine (Hives) predniSONE (swelling in ankles) Social History Tobacco Never (less than 100 in lifetime) Tobacco Use:. Never Smokeless T (more content not included)... Normal [facility] Comment on above: Result Comment: Elec tronically Signed By: Princess MAX, Ari Rojas.wendy\Date and Time Signed: 12/07/24 12:25 EDT Ambulatory Visit Summaryon 0 12-05-2024 Ambulatory Visit Summary Ambulatory Visit Summary PATRICIA PLAZA :1960 Visit Date:12/05/2024 Ambulatory Visit Instructions Your Diagnosis Viral URI with cough Elevated blood pressure reading with diagnosis of hypertension Your Care Team Attending Physician - Richard Vergara PA-C Primary Care Physician - DONNIE HEBERT DO This Is Your Medications List benzonatate (Tessalon 100 mg Cap) Contact prescribing physician if questions or concerns atorvastatin (atorvastatin 40 mg Tab) buPROPion (buPROPion 150 mg/24 hours XL Tab) clonazepam (clonazepam 1 mg Tab) diphenhydrAMINE (diphenhydrAMINE 25 mg Cap) escitalopram (escitalopram 10 mg Tab) gabapentin (gabapentin 100 mg Cap) insulin aspart (Insulin Aspart FlexPen 100 units/mL injectable solution) insulin glargine (Insulin Glargine Prefilled Pen 100 units/mL subcutaneous solution) losartan (losartan 50 mg Tab) Discharge Vitals Temperature (Oral) 37.2 ???C Heart Rate (Peripheral) 83 Respiratory Rate 18 Blood Pressure 142/86 Height 70 in Height 178 cm Weight 258.602 lb Weight 117.3 kg BMI 37.02 What to do next You Need to Schedule the Following Appointments Follow Up with DONNIE HEBERT DO When: Where: [address] [place] [address]- Follow Up with Richard Vergara PA-C, [facility] When: Where: [phone] Medications What How Much When Why Instructions New benzonatate (Tessalon 100 mg Cap) 1 Capsules By Mouth 3 times a day Viral URI with cough Duration: 7 Days Pickup at [facility]/pharmacy #[id number] Unchanged atorvastatin (atorvastatin 40 mg Tab) 1 Tablets Contact prescribing physician if questions or concerns Unchanged buPROPion (buPROPion 150 mg/ 24 hours XL Tab) 1 Tablets Contact prescribing physician if questions or concerns Unchanged clonazepam (clonazepam 1 mg Tab) 1 Tablets Contact prescribing physician if questions or concerns Unchanged diphenhydrAMINE (diphenhydrAMINE 25 mg Cap) 2 Capsules By Mouth Every 6 hours Contact prescribing physician if questions or concerns Unchanged escitalopram (escitalopram 10 mg Tab) 1 Tablets Contact prescribing physician if questions or concerns Unchanged gabapentin (gabapentin 100 mg Cap) 1 Capsules Contact prescribing physician if questions or concerns Unchanged insulin aspart (Insulin Aspart FlexPen 100 units/ mL injectable solution) Contact prescribing physician if questions or concerns Unchanged insulin glargine (Insulin Glargine Prefilled Pen 100 units/ mL subcutaneous solution) Contact prescribing physician if questions or concerns Unchanged losartan (losartan 50 mg Tab) 1 Tablets Contact prescribing physician if questions or concerns Pharmacy Information [facility]/pharmacy #[id number]: [address], [place] [phone] Allergies Percocet (hives) codeine morphine (Hives) predniSONE (swelling in ankles) Patient Survey You may receive a survey via text or e-mail asking about your office visit. Please share your experience with us by completing your survey. We appreciate your feedback and thank you for choosing us for your care. Education Materials Upper Respiratory Infection, Adult An upper respiratory infection (URI) is a common viral infection of the nose, throat, and upper air passages that lead to the lungs. The most [...] is this treated? URIs usually get better o (more content not included)... Normal [facility] Family Medicine Office/Clini c Noteon 12-05-2024 Family Medicine Office/Clinic Note Family Medicine Office/Clinic Note Chief Complaint Cough HPI Staff 64 year old female presents with a productive cough (yellow), runny nose, hoarseness that started Monday. OTC tried: Cold and Flu pills History of Present Illness I have reviewed and verified the staff HPI to be accurate for this encounter. Portions of this record have been created with voice recognition software. Occasional wrong-word or ???[id number]-m-uhxn??? substitutions may have occurred due to the inherent limitations of voice recognition software. 64 yo female presents today with cc of cough and congestion. Patient states on Monday, x 2 days ago, she developed cough runny nose and hoarseness of the voice. Patient states that her son has the exact same symptoms which started several days prior to her. States she started with cough which initially dry nonproductive states now she does cough up some clear to yellow phlegm or mucus. She does state a history of bronchitis and pneumonia but denies any fever chills or bodyaches. States that her son is also going through issues with kidney stones so sometimes she will stay up late with them as he is autistic and will talk to him to keep his mind off of it. States that she went to bed last night at 730 woke up at 1130 states with complete loss of voice and states a lot of sore throat denies any ear pain no nasal congestion or rhinorrhea. He denies any history of asthma or COPD. Denies smoking. States she had a knee surgery scheduled for meniscus repair at the end of October which was canceled after she had a stomach bug. States this was rescheduled for December 17 and would like to ensure that she is able to get there. States she had contacted her PCPs office and spoke with her nurse mom told her to take a Claritin or Zyrtec as that may be allergy related. The patient came in for further evaluation today. Denies any chest pain shortness of breath or difficulty breathing with cough. She has no other concerns at this time. Review of Systems PHQ Score Initial Depression Screen Score: 0 SCORE ROS negative unless otherwise stated in HPI. Physical Exam Vitals & Measurements T: 37.2 ???C(Oral) HR: 83(Peripheral) RR: 18 BP: 142/86 SpO2: 95% HT: 70 in HT: 178 cm WT: 117.3 kg WT: 258.602 lb BMI: 37.02 General: Pleasant obese elderly female, no acute distress sitting upright in the exam chair Eyes:Bilateral conjunctiva wnl, no injection Ears:Bilateral TMs are wnl. No erythema or bulging. Bilateral external auditory canals are wnl no erythema or edema. Nose:No deformity, discharge, inflammation, or lesions Mouth:Moist mucous membranes. Uvula is midline. No acute tonsillar erythema, edema, or exudate. No signs of peritonsillar abscess. No trismus or drooling. Neck:no adenopathy Lungs:Lung sounds are clear bilaterally. No wheezing, rhonchi, or crackles on exam. Cardio:S1, S2, regular rhythm. No murmurs, gallops, or rubs. Abdomen:not assessed Musculoskeletal:not assessed Extremity:not assessed Neurologic:not assessed Skin:not assessed Mental Status:Alert and oriented x3. Normal mood and affect Assessment/Plan I spoke with patient in regards to viral upper respiratory infection. Discussed that this is viral in nature which does not require antibiotics. Discussed Tessalon Perles or cough suppressant 1 every 8 hours as needed for cough which patient is in agreement states she cannot take the liquid cough medication as it makes her vomit. Understands a follow closely with PCP but understands fluids rest and supportive management is the treatment of choice. Patient may return if needed patient agrees and understands plan. 1. Viral URI with cough (J06.9: Acute upper respiratory infection, unspecified) Discussed exam and hx are consistent with viral illness. Advised of typical duration. Discussed antibiotics unfortunately do not treat viral illnesses, it will take time to run course- usually 7-14 days. Fluids/rest encouraged, PRN tylenol/ibuprofen for any pain. May use tessalon for symptomatic tx. Follow up with PCP if not improving over next 7-10 days or significantly worsening symptoms. Patient verbalized understanding of tx plan. Ordered: benzonatate, 100 mg = 1 cap(s), Oral, TID, X 7 day(s), # 21 cap(s), Refills(s) 0, Pharmacy: [facility]/pharmacy #[id number], 178, cm, 12/05/24 14:24:00 EDT, Height/Length Dosing, 117.3, kg, 12/05/24 14:24:00 EDT, Weight Dosing Follow-up With When Contact Information DONNIE HEBERT DO [address] [facility], [place] [address]- Additional Instructions: Richard Vergara PA-C, [facility] [phone] Additional Instructions: Patient Education Upper Respiratory Infection, Adult Problem List/Past Medical History Ongoing No qualifying data Historical No qualifying data Medications atorvastatin 40 mg Tab, 40 mg= 1 tab(s) buPROPion 150 mg/24 hours XL Tab, 150 mg= 1 tab(s) clonazepam 1 mg Tab, 1 mg= 1 tab(s) diphenhydrAMINE 25 mg Cap, 50 mg= 2 cap(s), Oral, q6hr escitalopram 10 mg Tab, 10 mg= (more content not included)... Normal [facility] Comment on above: Result Comment: Elec tronically Signed By: Richard Vergara PA-C\.br\Date and Time Signed: 12/05/24 14:44 EDT BASIC METABOLIC PANELon 05- Anion gap [Moles/Vol] 10 mmol/L Normal 5-15 [facility] Comment on above: Order Comment: Print requisition?->No Performed By: #### B MP #### [facility] ([facility]) [address] [place] [address] VIR Calcium [Mass/Vol] 9.9 mg/dL Normal 8.5-10.5 [facility] Comment on above: Order Comment: Print requisition?->No Performed By: #### B MP #### [facility] ([facility]) [address] [place] [address] VIR Chloride [Moles/Vol] 104 mmol/L Normal 98-109 [facility] Comment on above: Order Comment: Print requisition?->No Performed By: #### B MP #### [facility] ([facility]) [address] [place] [address] VIR CO2 [Moles/Vol] 28 mmol/L Normal 22-32 [facility] Comment on above: Order Comment: Print requisition?->No Performed By: #### B MP #### [facility] ([facility]) [address] [place] [address] VIR Creatinine [Mass/Vol] 1.10 mg/dL High 0.40-1.00 [facility] Comment on above: Order Comment: Print requisition?->No Result Comment: METH OD TRACEABLE TO IDMS STANDARD Performed By: #### B MP #### [facility] ([facility]) [address] [place] [address] VIR GFR/1.73 sq M.predicted among non-blacks MDRD (S/P/Bld) [Vol rate/Area] 56 mL/min/{1.73_m2} Low >=60 [facility] Comment on above: Order Comment: Print requisition?->No Result Comment: Repo rted eGFR is based on the CKD-EPI 2020 equation that does not use a race coefficient. Performed By: #### B MP #### [facility] ([facility]) [address] [place] [address] VIR Glucose [Mass/Vol] 176 mg/dL High 65-99 [facility] Comment on above: Order Comment: Print requisition?->No Performed By: #### B MP #### [facility] ([facility]) [address] [place] [address] VIR Potassium [Moles/Vol] 4.3 mmol/L Normal 3.5-5.0 [facility] Comment on above: Order Comment: Print requisition?->No Performed By: #### B MP #### [facility] ([facility]) [address] [place] [address] VIR Sodium [Moles/Vol] 142 mmol/L Normal 134-146 [facility] Comment on above: Order Comment: Print requisition?->No Performed By: #### B MP #### [facility] ([facility]) [address] [place] [address] VIR Urea nitrogen [Mass/Vol] 17 mg/dL Normal 5-27 [facility] Comment on above: Order Comment: Print requisition?->No Performed By: #### B MP #### [facility] ([facility]) [address] [place] [address] VIR Basic Metabolic Panelon 05- Anion gap [Moles/Vol] 10 mmol/L 5 - 15 mmol/L [facility] Calcium [Mass/Vol] 9.9 mg/dL 8.5 - 10. 5 mg/dL [facility] Chloride [Moles/Vol] 104 mmol/L 98 - 10 9 mmol/L [facility] CO2 [Moles/Vol] 28 mmol/L 22 - 32 mmol/L [facility] Creatinine [Mass/Vol] 1.1 mg/dL High 0.40 - 1.00 mg/dL [facility] Comment on above: METHOD TRACEABLE TO IDMS STANDARD EGFR Non-Race Dependent 56 Low - PINF P [facility] Comment on above: Reported eGFR is bas ed on the CKD-EPI 2020 equation that does not use a race coefficient. Glucose [Mass/Vol] 176 mg/dL High 65 - 99 mg/dL [facility] Interpretation and review of laboratory results Abnormal [facility] Potassium [Moles/Vol] 4.3 mmol/L 3.5 - 5.0 mmol/L [facility] Sodium [Moles/Vol] 142 mmol/L 134 - 146 mmol/L [facility] Urea nitrogen [Mass/Vol] 17 mg/dL 5 - 27 mg/dL [facility] Basic metabolic 1998 panelon 11-05-2024 Anion gap [Moles/Vol] 10 mmol/L 5 - 15 mmol/L [facility] Calcium [Mass/Vol] 9.9 mg/dL 8.5 - 10. 5 mg/dL [facility] Chloride [Moles/Vol] 104 mmol/L 98 - 10 9 mmol/L [facility] CO2 [Moles/Vol] 28 mmol/L 22 - 32 mmol/L [facility] Creatine [Mass/Vol] 1.1 mg/dL High 0.40 - 1 .00 mg/dL [facility] Comment on above: METHOD TRACEABLE TO IDMS STANDARD GFR/1.73 sq M.predicted among non-blacks MDRD (S/P/Bld) [Vol rate/Area] 56 mL/min/{1.73_m2} Low - PINF [facility] Comment on above: Reported eGFR is bas ed on the CKD-EPI 2020 equation that does not use a race coefficient. Print requisition?->No PERFORMED AT [facility] [address],[place] [address] Glucose [Mass/Vol] 176 mg/dL High 65 - 99 mg/dL [facility] Interpretation and review of laboratory results Abnormal [facility] Potassium [Moles/Vol] 4.3 mmol/L 3.5 - 5.0 mmol/L [facility] Sodium [Moles/Vol] 142 mmol/L 134 - 146 mmol/L [facility] Urea nitrogen [Mass/Vol] 17 mg/dL 5 - 27 mg/dL [facility] MR KNEE LEFT WO IV CONTRASTo n 08-26-2024 MR KNEE LEFT WO IV CONTRAST Exam: MR KNEE LEFT WO IV CONTRAST History: Knee pain. Medial meniscus tear. Technique: Multiplanar multisequence MRI of the knee was performed without contrast. Comparison: Radiographs June 04, 2024 Findings: Quadriceps and patellar tendons are intact. No joint effusion. Anterior and posterior cruciate ligaments are intact. The medial collateral ligament, lateral collateral ligament, and popliteus are intact. Complex tear of the body through posterior horn of the medial meniscus. Horizontal tear of the body of the lateral meniscus. Partial-thickness cartilage loss of the medial compartment without well-defined cartilage defect. Minimal bone marrow edema of the medial tibial plateau subjacent to the body of the medial meniscus may be reactive to the meniscus tear or due to a tiny full-thickness cartilage defect. Two tiny foci of subcortical bone marrow edema of the median patellar ridge likely secondary to occult full-thickness cartilage fissures. Popliteal fossa structures are intact. Thin Espino's cyst measures approximately 6 cm in craniocaudal dimension. IMPRESSION: Complex tear of the body through posterior horn of the medial meniscus. Horizontal tear of the body of the lateral meniscus. Mild osteoarthritis. ELECTRONICALLY SIGNED BY: Shyam Moody, DO Normal Not Available Influenza virus B Ag [Presen ce] in Upper respiratory specimen by Rapid immunoassayon 08-12-2024 FLUBV Ag IA.rapid Ql (Nph) Influenza virus B Ag [Presence] in Upper respiratory specimen by Rapid immunoassay [facility] No Panel Informationon 08-12 Influenza Type A (Rapid) Negative [facility] POC SARS CoV-2 Antigen Negative [facility] No Panel Informationon 06-27 ITZEL Pelletier 06/27/2024 12:16 PM L Inj/Asp: L knee on 06/27/2024 12:12 PM Indications: pain Details: 22 G needle, anterolateral approach Medications: 40 mg methylPREDNISolone acetate 40 MG/ML; 1 mL bupivacaine PF 0.5 % Outcome: tolerated well, no immediate complications UTILIZING ASEPTIC TECHNIQUE PT GIVEN INJECTION IN LEFT KNEE, NEUROVASC INTACT S/P INJ, TOLERATED WELL Procedure, treatment alternatives, risks and benefits explained, specific risks discussed. Consent was given by the patient. Patient was prepped and draped in the usual sterile fashion. [facility] XR Knee - right 1 or 2 Views on 06-04-2024 Imaging Result: AP and Lateral right knee: No acute fracture or dislocation. Symmetric joint space narrowing medially with mild subchondral sclerosis to weight bearing surfaces Trace effusion Impression: No acute bony process right knee. [facility] Study observation (narrative) [facility] HbA1c HPLC (Bld) [Mass fract ion]on 04-11-2024 HbA1c (Bld) [Mass fraction] Hemoglobin A1c/Hemoglobin.total in Blood by HPLC [facility] No Panel Informationon 04-11 Bedside Glucose 268 [facility] No Panel Informationon 03-05 Bedside Glucose 265 [facility] URINALYSISon 01-24-2024 Bilirubin Ql (U) Negative Normal NEG [facility] Comment on above: Performed By: #### U A #### [facility] ([id number]) [address] [place] [address] BLOOD/HGB Negative Normal NEG [facility] Comment on above: Performed By: #### U A #### [facility] ([id number]) [address], [address] [place] [address] Color (U) YELLOW Normal YELLOW [facility] Comment on above: Performed By: #### U A #### [facility] ([id number]) [address], [address] [place] [address] Glucose Ql (U) >1000 Abnormal NEG [facility] Comment on above: Performed By: #### U A #### [facility] ([id number]) [address], [address] [place] [address] Ketones Ql (U) Negative Normal NEG [facility] Comment on above: Performed By: #### U A #### [facility] ([id number]) [address], [address] [place] [address] Leukocyte esterase Test strip Ql (U) Negative Normal NEG [facility] Comment on above: Result Comment: HIGH CONCENTRATIONS OF GLUCOSE MAY DECREASE THE REACTIVITY OF THE DIPSTICK LEUKOCYTE TEST PAD. Performed By: #### U A #### [facility] ([id number]) [address] [place] [address] MUCOUS PRESENT Abnormal NONE [facility] Comment on above: Performed By: #### U A #### [facility] ([id number]) [address], [address] [place] [address] Nitrite Ql (U) Negative Normal NEG [facility] Comment on above: Performed By: #### U A #### [facility] ([id number]) [address], [address] [place] [address] pH (U) 5.5 [pH] Normal 5.0-8.5 [facility] Comment on above: Performed By: #### U A #### [facility] ([id number]) [address] [address] [place] [address] Protein Ql (U) Trace Abnormal NEG [facility] Comment on above: Performed By: #### U A #### [facility] ([id number]) [address] [address] [place] [address] R.B.CELLS 2 /hpf Normal 0-5 [facility] Comment on above: Performed By: #### U A #### [facility] ([id number]) [address] [address] [place] [address] Specific gravity (U) [Rel density] 1.028 Normal 1.003-1.035 [facility] Comment on above: Performed By: #### U A #### [facility] ([id number]) [address] [address] [place] [address] SQUAMOUS EPITHELIUM 1 /hpf Normal 0-5 [facility] Comment on above: Performed By: #### U A #### [facility] ([id number]) [address] [address] [place] [address] TURBIDITY CLEAR Normal CLEAR [facility] Comment on above: Performed By: #### U A #### [facility] ([id number]) [address] [address] [place] [address] Urinalysis dipstick W Reflex Microscopic panel (U) URINE RECEIVED WITHOUT PRESERVATIVE-DELAYS IN TRANSPORT MAY AFFECT RESULTS.INTERPRET WITH CAUTION AND CLINICAL CORRELATION IS RECOMMENDED. Normal [facility] Comment on above: Performed By: #### U A #### [facility] ([id number]) [address], [address] [place] [address] Urobilinogen (U) [Mass/Vol] mg/dL Normal <1.1 [facility] Comment on above: Performed By: #### U A #### [facility] ([id number]) [address], [address] [place] [address] W.B.CELLS 3 /hpf Normal 0-5 [facility] Comment on above: Performed By: #### U A #### [facility] ([id number]) [address], [address] [place] [address] URINE CULTUREon 01-24-2024 Bacteria identified Cx Nom (U) CULTURE RESULTS 10-50,000 ORGANISMS/mL NORMAL UROGENITAL JESUS Normal [facility] Comment on above: Performed By: #### 6 30-4 #### [facility] ([id number]) [address], [address] [place] [address] Urinalysison 01-24-2024 Bilirubin Ql (U) Negative Negative^Ne g ative [facility] Color (U) YELLOW YELLOW^YELLO W [facility] Epithelial cells Auto (Urine sed) [#/Area] 1 [facility] Glucose (U) [Mass/Vol] mg/dL Abnormal Negat ronni^Neg ative mg/dL [facility] Hemoglobin Auto test strip Ql (U) Negative Negative^Neg ative [facility] Interpretation and review of laboratory results Abnormal [facility] Ketones (U) [Mass/Vol] Negative Negat ronni^Neg ative mg/dL [facility] Leukocyte esterase Auto test strip Ql (U) Negative Negative^Neg ative [facility] Comment on above: HIGH CONCENTRATIONS OF GLUCOSE MAY DECREASE THE REACTIVITY OF THE DIPSTICK LEUKOCYTE TEST PAD. Mucus Ql (Urine sed) PRESENT Abnormal NONE^NONE [facility] Nitrite Auto test strip Ql (U) Negative Negative^Neg ative [facility] pH (U) 5.5 [pH] 5.0 - 8.5 [facility] Protein (U) [Mass/Vol] Trace Abnormal Negat ronni^Neg ative mg/dL [facility] RBC Auto (Urine sed) [#/Area] 2 [facility] Specific gravity Refractometry automated (U) [Rel density] 1.028 1.003 - 1.035 [facility] Turbidity Ql (U) CLEAR CLEAR^CLEAR [facility] Urinalysis microscopic panel Auto (Urine sed) [#/Area] URINE RECEIVED WITHOUT PRESERVATIVE-DELAYS IN TRANSPORT MAY AFFECT RESULTS.INTERPRET WITH CAUTION AND CLINICAL CORRELATION IS RECOMMENDED. [facility] Urobilinogen Qn (U) NINF [facility] WBC Auto (Urine sed) [#/Area] 3 [facility] VAGINITIS PANEL PCRon 2023 VAGINITIS PANEL PCR BACT. VAGINOSIS DNA Not detected (qualifier value) Qualitative results are reported based on detection and quantitation of targeted organism markers which include: Lactobacillus spp. (L. crispatus and L. jensenii), Gardnerella vaginalis, Atopobium vaginae, Bacterial Vaginosis Associated Bacteria-2 (BVAB-2) and Megasphaera-1 MAURI SPECIES DNA Not detected (qualifier value) Mauri species not detected include: C. albicans, C. tropicalis, C. parapsilosis or C. dubliniensis MAURI KRUSEI DNA Not detected (qualifier value) No Mauri krusei detected MAURI GLABRATA DNA Detected (qualifier value) Mauri glabrata detected Literature studies show between 8-20% Fluconazole resistance for Mauri glabrata TRICHOMONAS VAG DNA Not detected (qualifier value) No Trichomonas vaginalis detected NOTE [facility] MAX Vaginal Panel has not been evaluated for patients under 18 years old. Results for these patients should be reviewed and assessed in accordance with clinical presentation to determine patient diagnosis. Normal [facility] Comment on above: Performed By: #### V PPCR #### [facility] ([id number]) [address] [place] [address], [address] [place] [address] Basophils Auto (Bld) [#/Vol] on 12-18-2023 Basophils (Bld) [#/Vol] 0.1 10 3/uL 0.0-0.1 [facility] Basophils/100 WBC Auto (Bld) on 12-18-2023 Basophils/100 WBC (Bld) 0.9 % 0.2-2.0 [facility] Cholesterol in LDL Calc [Mas s/Vol]on 12-18-2023 Cholesterol in LDL [Mass/Vol] 108.0 mg/dL [facility] Comment on above: <100 mg/dl [id number] 0-129 mg/dl NEAR OR ABOVE [id number] mg/dl BORDERLINE [id number] mg/dl HIGH>190 mg/dl VERY HIGH Cholesterol in VLDL Calc [Ma ss/Vol]on 12-18-2023 Cholesterol in VLDL [Mass/Vol] 34.8 mg/dL [facility] Eosinophils/100 WBC Auto (Bl d)on 12-18-2023 Eosinophils/100 WBC (Bld) 6.3 % 0.9-7.0 [facility] Erythrocyte distribution wid th Auto (RBC) [Ratio]on 12-18-2023 Erythrocyte distribution width (RBC) [Ratio] 14.0 % 11.0-15.0 [facility] Estimated glomerular filtrat ion rate (GFR) non- Americanon 12-18-2023 GFR/1.73 sq M.predicted among non-blacks MDRD (S/P/Bld) [Vol rate/Area] 43 mL/min/{1.73_m2} Low >=60 [facility] Globulin Calc (S) [Mass/Vol] on 12-18-2023 Globulin (S) [Mass/Vol] 4.0 g/dL [facility] Glucose mean value [Mass/vol ume] in Blood Estimated from glycated hemoglobinon 12-18-2023 Average glucose Estimated from glycated hemoglobin (Bld) [Mass/Vol] 260 mg/dL [facility] Hematocrit Auto (Bld) [Volum e fraction]on 12-18-2023 Hematocrit (Bld) [Volume fraction] 49.0 % High 36.0-48.0 [facility] Hemoglobin [Mass/volume] in Bloodon 12-18-2023 Hemoglobin (Bld) [Mass/Vol] 15.5 g/dL 12.0-16.0 [facility] Laboratory - Chemistry and C hemistry - challengeon 12-18-2023 Albumin [Mass/Vol] 3.5 g/dL 3.4-5.0 [facility] ALP [Catalytic activity/Vol] 148 U/L High 46-116 [facility] ALT [Catalytic activity/Vol] 30 U/L 14-59 [facility] AST [Catalytic activity/Vol] 20 U/L 15-37 [facility] Bilirubin [Mass/Vol] 0.9 mg/dL 0.2-1.0 [facility] Calcium [Mass/Vol] 9.1 mg/dL 8.5-10.1 [facility] Chloride [Moles/Vol] 103 mmol/L 98-107 [facility] Cholesterol [Mass/Vol] 193 mg/dL <=200 [facility] Cholesterol in HDL [Mass/Vol] 51 mg/dL 40-60 [facility] Comment on above: > or =60 mg/dl - LOW CARDIOVASCULAR RISK<40 mg/dl - HIGH CARDIOVASCULAR RISK CO2 [Moles/Vol] 25.9 mmol/L 21.0-32.0 [facility] Creatinine [Mass/Vol] 1.26 mg/dL High 0.55-1.02 [facility] GFR/1.73 sq M.predicted MDRD (S/P/Bld) [Vol rate/Area] 52 mL/min/{1.73_m2} Low >=60 [facility] Glucose [Mass/Vol] 261 mg/dL High 74-106 [facility] Potassium [Moles/Vol] 3.9 mmol/L 3.5-5.1 [facility] Protein [Mass/Vol] 7.5 g/dL 6.4-8.2 [facility] Sodium [Moles/Vol] 140 mmol/L 136-145 [facility] Triglyceride [Mass/Vol] 174 mg/dL High <=150 [facility] Urea nitrogen [Mass/Vol] 11.0 mg/dL 7.0-18.0 [facility] Urea nitrogen/Creatinine [Mass ratio] 8.7 mg/mg [facility] Laboratory - Hematology and Cell countson 12-18-2023 HbA1c (Bld) [Mass fraction] 10.7 % High 4.5-6.2 [facility] Comment on above: ADA RECOMMENDED LIMI T 4.0 - 6.0ADA THERAPEUTIC TARGET < 7.0ACTION SUGGESTED> 7.0 Immature granulocytes/100 WBC (Bld) 0.2 % 0.0-0.5 [facility] Leukocytes [#/volume] correc suraj for nucleated erythrocytes in Blood by Automated counon 12-18-2023 WBC corrected for nucl RBC Auto (Bld) [#/Vol] 9.0 10 3/uL 4.0-11.0 [facility] Lymphocytes Auto (Bld) [#/Vo l]on 12-18-2023 Lymphocytes (Bld) [#/Vol] 2.1 10 3/uL 1.2-3.8 [facility] Lymphocytes/100 WBC Auto (Bl d)on 12-18-2023 Lymphocytes/100 WBC (Bld) 23.4 % 20.5-60.0 [facility] MCH Auto (RBC) [Entitic mass ]on 12-18-2023 MCH (RBC) [Entitic mass] 26.8 pg 26.7-34.0 [facility] MCHC Auto (RBC) [Mass/Vol]on 12-18-2023 MCHC (RBC) [Mass/Vol] 31.6 g/dL 29.9-35.2 [facility] MCV Auto (RBC) [Entitic vol] on 12-18-2023 MCV (RBC) [Entitic vol] 84.6 fL 81.0-99.0 [facility] Monocytes Auto (Bld) [#/Vol] on 12-18-2023 Monocytes (Bld) [#/Vol] 0.6 10 3/uL 0.3-0.8 [facility] Monocytes/100 WBC Auto (Bld) on 12-18-2023 Monocytes/100 WBC (Bld) 6.7 % 1.7-12.0 [facility] Neutrophils Auto (Bld) [#/Vo l]on 12-18-2023 Neutrophils (Bld) [#/Vol] 5.6 10 3/uL 1.4-6.5 [facility] Neutrophils/100 WBC Auto (Bl d)on 12-18-2023 Neutrophils/100 WBC (Bld) 62.5 % 43.0-75.0 [facility] No Panel Informationon 12-17 Eosinophils # (Auto) 0.6 10 3/uL 0.0-0.7 [facility] Immature Granulocyte # (Auto) 0.02 10 3/uL 0.00-0.03 [facility] Platelet mean volume Auto (B ld) [Entitic vol]on 12-18-2023 Platelet mean volume (Bld) [Entitic vol] 10.7 fL 9.5-13.5 [facility] Platelets Auto (Bld) [#/Vol] on 12-18-2023 Platelets (Bld) [#/Vol] 328 10 3/uL 150-450 [facility] RBC Auto (Bld) [#/Vol]on RBC (Bld) [#/Vol] 5.79 10 6/uL High 4.20-5.40 [facility] Serum or plasma albumin/glob ulin mass ratioon 12-18-2023 Albumin/Globulin [Mass ratio] 0.9 {ratio} [facility] Serum or plasma anion gap de terminationon 12-18-2023 Anion gap [Moles/Vol] 15.0 mmol/L [facility] Serum or plasma total choles terol/high density lipoprotein (HDL) cholesterol mass keagan 12-18-2023 Cholesterol.total/Colleen sterol in HDL [Mass ratio] 3.8 {ratio} [facility] Comment on above: 3.3 - 4.4 LOW RISK4. 4 - 7.1 AVERAGE RISK7.1 - 11.0 MODERATE RISK>11.0 HIGH RISK Surgical Pathologyon 024 Surgical Pathology Normal [facility] Comment on above: Result Comment: [facility] [address] [place] [address] Surgical Pathology Consultation Patient Name:PATRICIA PLAZA:1960 (Age: 63)Gender:FTaken:4Reported:4Physician(s):Berta Khalil DO ([phone])Copy To: Rec. 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 Clinical History Chronic vaginal irritation. Gross Description Received in formalin labeled BOLA, perineal is a audie eastman epithelial-lined portion of soft tissue, 0.2 x 0.2 x 0.1 cm. No lesion or area of discoloration definitively identified. No definitive resection margin is identified. The specimen is entirely intact and submitted in a single cassette. (1, ns, [id number],m1) DM. dm/12/11/2023GR Specimen(s) Received Vulva, perineum Fee Codes(s): 1; 01347 URINE CULTUREon 12-07-2023 Bacteria identified Cx Nom (U) CULTURE RESULTS >100,000 ORGANISMS/mL ESCHERICHIA COLI [ S = SUSCEPTIBLE R = RESISTANT I = INTERMEDIATE S-DO = Susceptible-dose dependent NS = Non-suscceptible NO = No Interpretation ] Organism: ESCHERICHIA COLI Antibiotic Interpretation VIKA Status AMPICILLIN S 4 F AMP/SULBACTAM S <=2/1 F CEFAZOLIN S <=4 F CEFTRIAXONE S <=1 F CIPROFLOXACIN S <=0.25 F GENTAMICIN S <=1 F LEVOFLOXACIN S <=0.12 F NITROFURANTOIN S <=16 F PIPERACIL/TAZOBACTAM S <=4 F TOBRAMYCIN S <=1 F TRIMETH/SULFAMETHOXAZ OLE S <=1/19 F Susceptible [facility] Comment on above: Performed By: #### 6 30-4 #### [facility] ([id number]) [address] [place] [address] VAGINITIS PANEL PCRon 2023 VAGINITIS PANEL PCR BACT. VAGINOSIS DNA Not detected (qualifier value) Qualitative results are reported based on detection and quantitation of targeted organism markers which include: Lactobacillus spp. (L. crispatus and L. jensenii), Gardnerella vaginalis, Atopobium vaginae, Bacterial Vaginosis Associated Bacteria-2 (BVAB-2) and Megasphaera-1 MAURI SPECIES DNA Not detected (qualifier value) Mauri species not detected include: C. albicans, C. tropicalis, C. parapsilosis or C. dubliniensis MAURI KRUSEI DNA Not detected (qualifier value) No Mauri krusei detected MAURI GLABRATA DNA Detected (qualifier value) Mauri glabrata detected Literature studies show between 8-20% Fluconazole resistance for Mauri glabrata TRICHOMONAS VAG DNA Not detected (qualifier value) No Trichomonas vaginalis detected NOTE [facility] MAX Vaginal Panel has not been evaluated for patients under 18 years old. Results for these patients should be reviewed and assessed in accordance with clinical presentation to determine patient diagnosis. Normal [facility] Comment on above: Performed By: #### V PPCR #### [facility] ([id number]) [address] [place] [address], [address] [place] [address] Vaginitis Panel PCRon 2023 Bacterial vaginosis DNA panel KENYON+probe (Vag fld) Not detected Not Detected^Not Detected [facility] Comment on above: Qualitative results are reported based on detection and quantitation of targeted organism markers which include: Lactobacillus spp. (L. crispatus and L. jensenii), Gardnerella vaginalis, Atopobium vaginae, Bacterial Vaginosis Associated Bacteria-2 (BVAB-2) and Megasphaera-1 C. glabrata DNA KENYON+probe Ql (Vag fld) Detected Abnormal Not Detected^Not Detected [facility] Comment on above: Mauri glabrata det ected Literature studies show between 8-20% Fluconazole resistance for Mauri glabrata C. krusei DNA KENYON+probe Ql (Vag fld) Not detected Not Detected^Not Detected [facility] Comment on above: No Mauri krusei de tected Mauri sp 6 panel KENYON+probe (Vag fld) Not detected Not Detected^Not Detected [facility] Comment on above: Mauri species not detected include: C. albicans, C. tropicalis, C. parapsilosis or C. dubliniensis Interpretation and review of laboratory results Abnormal [facility] T. vaginalis DNA KENYON+probe Ql (Vag fld) Not detected Not Detected^Not Detected [facility] Comment on above: No Trichomonas vagin jennifer detected NOTE BD MAX Vaginal Panel has not been evaluated for patients under 18 years old. Results for these patients should be reviewed and assessed in accordance with clinical presentation to determine patient diagnosis. [facility] URINALYSISon 11-09-2023 Bilirubin Ql (U) Negative Normal NEG [facility] Comment on above: Performed By: #### U A #### [facility] ([id number]) [address] [place] [address] BLOOD/HGB Negative Normal NEG [facility] Comment on above: Performed By: #### U A #### [facility] ([id number]) [address] [place] [address] Color (U) YELLOW Normal YELLOW [facility] Comment on above: Performed By: #### U A #### [facility] ([id number]) [address] [place] [address] Glucose Ql (U) >1000 Abnormal NEG [facility] Comment on above: Performed By: #### U A #### [facility] ([id number]) [address] [place] [address] Ketones Ql (U) Negative Normal NEG [facility] Comment on above: Performed By: #### U A #### [facility] ([id number]) [address] [place] [address] Leukocyte esterase Test strip Ql (U) Large Abnormal NEG [facility] Comment on above: Result Comment: HIGH CONCENTRATIONS OF GLUCOSE MAY DECREASE THE REACTIVITY OF THE DIPSTICK LEUKOCYTE TEST PAD. Performed By: #### U A #### [facility] ([id number]) [address] [place] [address] MUCOUS PRESENT Abnormal NONE [facility] Comment on above: Performed By: #### U A #### [facility] ([id number]) [address], [address] [place] [address] Nitrite Ql (U) Negative Normal NEG [facility] Comment on above: Performed By: #### U A #### [facility] ([id number]) [address], [address] [place] [address] pH (U) 6.0 [pH] Normal 5.0-8.5 [facility] Comment on above: Performed By: #### U A #### [facility] ([id number]) [address], [address] [place] [address] Protein Ql (U) Trace Abnormal NEG [facility] Comment on above: Performed By: #### U A #### [facility] ([id number]) [address], [address] [place] [address] R.B.CELLS 1 /hpf Normal 0-5 [facility] Comment on above: Performed By: #### U A #### [facility] ([id number]) [address], [address] [place] [address] Specific gravity (U) [Rel density] 1.026 Normal 1.003-1.035 [facility] Comment on above: Performed By: #### U A #### [facility] ([id number]) [address], [address] [place] [address] SQUAMOUS EPITHELIUM 1 /hpf Normal 0-5 [facility] Comment on above: Performed By: #### U A #### [facility] ([id number]) [address], [address] [place] [address] TURBIDITY CLEAR Normal CLEAR [facility] Comment on above: Performed By: #### U A #### [facility] ([id number]) [address], [address] [place] [address] Urobilinogen (U) [Mass/Vol] mg/dL Normal <1.1 [facility] Comment on above: Performed By: #### U A #### [facility] ([id number]) [address] [place] [address], [facility] [address] [place] [address] W.B.CELLS 287 /hpf High 0-5 [facility] Comment on above: Performed By: #### U A #### [facility] ([id number]) [address] [place] [address], [address] [address] WBC CLUMPS FEW Abnormal NONE [facility] Comment on above: Performed By: #### U A #### [facility] ([id number]) [address] [place] [address] URINE CULTUREon 11-09-2023 Bacteria identified Cx Nom (U) CULTURE RESULTS >100,000 ORGANISMS/mL ESCHERICHIA COLI [ S = SUSCEPTIBLE R = RESISTANT I = INTERMEDIATE S-DO = Susceptible-dose dependent NS = Non-suscceptible NO = No Interpretation ] Organism: ESCHERICHIA COLI Antibiotic Interpretation VIKA Status AMPICILLIN S 8 F AMP/SULBACTAM S 4/2 F CEFAZOLIN S <=4 F CEFTRIAXONE S <=1 F CIPROFLOXACIN S <=0.25 F GENTAMICIN S <=1 F LEVOFLOXACIN S <=0.12 F NITROFURANTOIN S <=16 F PIPERACIL/TAZOBACTAM S <=4 F TOBRAMYCIN S <=1 F TRIMETH/SULFAMETHOXAZ OLE S <=1/19 F Susceptible [facility] Comment on above: Performed By: #### 6 30-4 #### [facility] ([id number]) [address] [place] [address] Urinalysison 11-09-2023 Bilirubin Ql (U) Negative Negative^Ne g ative [facility] Color (U) YELLOW YELLOW^YELLO W [facility] Epithelial cells Auto (Urine sed) [#/Area] 1 [facility] Glucose (U) [Mass/Vol] mg/dL Abnormal Negat ronni^Neg ative mg/dL [facility] Hemoglobin Auto test strip Ql (U) Negative Negative^Neg ative [facility] Interpretation and review of laboratory results Abnormal [facility] Ketones (U) [Mass/Vol] Negative Negat ronni^Neg ative mg/dL [facility] Leukocyte clumps LM Ql (Urine sed) FEW Abnormal NONE^NONE [facility] Leukocyte esterase Auto test strip Ql (U) Large Abnormal Negative^Neg ative [facility] Comment on above: HIGH CONCENTRATIONS OF GLUCOSE MAY DECREASE THE REACTIVITY OF THE DIPSTICK LEUKOCYTE TEST PAD. Mucus Ql (Urine sed) PRESENT Abnormal NONE^NONE [facility] Nitrite Auto test strip Ql (U) Negative Negative^Neg ative [facility] pH (U) 6.0 [pH] 5.0 - 8.5 [facility] Protein (U) [Mass/Vol] Trace Abnormal Negat ronni^Neg ative mg/dL [facility] RBC Auto (Urine sed) [#/Area] 1 [facility] Specific gravity Refractometry automated (U) [Rel density] 1.026 1.003 - 1.035 [facility] Turbidity Ql (U) CLEAR CLEAR^CLEAR [facility] Urobilinogen Qn (U) NINF [facility] WBC Auto (Urine sed) [#/Area] 287 High [facility] VAGINITIS PANEL PCRon 2023 VAGINITIS PANEL PCR BACT. VAGINOSIS DNA Not detected (qualifier value) Qualitative results are reported based on detection and quantitation of targeted organism markers which include: Lactobacillus spp. (L. crispatus and L. jensenii), Gardnerella vaginalis, Atopobium vaginae, Bacterial Vaginosis Associated Bacteria-2 (BVAB-2) and Megasphaera-1 MAURI SPECIES DNA Not detected (qualifier value) Mauri species not detected include: C. albicans, C. tropicalis, C. parapsilosis or C. dubliniensis MAURI KRUSEI DNA Not detected (qualifier value) No Mauri krusei detected MAURI GLABRATA DNA Detected (qualifier value) Mauri glabrata detected Literature studies show between 8-20% Fluconazole resistance for Mauri glabrata TRICHOMONAS VAG DNA Not detected (qualifier value) No Trichomonas vaginalis detected NOTE BD MAX Vaginal Panel has not been evaluated for patients under 18 years old. Results for these patients should be reviewed and assessed in accordance with clinical presentation to determine patient diagnosis. Normal [facility] Comment on above: Performed By: #### V PPCR #### [facility] ([id number]) [address], [address] [place] [address] Alanine aminotransferase [En zymatic activity/volume] in Serum or PlasmaOrdered By: OUTREACH COMMUNITY on 05-27-2023 ALT [Catalytic activity/Vol] 20 U/L 7-52 [facility] Albumin [Mass/volume] in Ser um or Plasma by Bromocresol green (BCG) dye binding methoOrdered By: OUTREACH COMMUNITY on 05-27-2023 Albumin BCG dye [Mass/Vol] 4.1 g/dL 3.5-5.7 [facility] Alkaline phosphatase [Enzyma tic activity/volume] in Serum or PlasmaOrdered By: OUTREACH COMMUNITY on 05-27-2023 ALP [Catalytic activity/Vol] 135 U/L 34-104 [facility] Aspartate aminotransferase [ Enzymatic activity/volume] in Serum or PlasmaOrdered By: OUTREACH COMMUNITY on 05-27-2023 AST [Catalytic activity/Vol] 17 U/L 13-39 [facility] Bilirubin.total [Mass/volume ] in Serum or PlasmaOrdered By: OUTREACH COMMUNITY on 05-27-2023 Bilirubin [Mass/Vol] 0.6 mg/dL 0.3-1.0 [facility] CBC Without Differentialon 1 07-28-2022 Erythrocyte distribution width (RBC) [Ratio] 14.8 % Normal 11.9-15.3 [facility] Comment on above: Performed By: #### O UTREACH GLYCO, OUTREACH LIPID, OUTREACH CMP, CBCNOOUTREACH #### [facility] [address] [id number] [place] Hematocrit (Bld) [Volume fraction] 46.7 % High 34.0-46.4 [facility] Comment on above: Performed By: #### O UTREACH GLYCO, OUTREACH LIPID, OUTREACH CMP, CBCNOOUTREACH #### [facility] [address] [id number] [place] Hemoglobin (Bld) [Mass/Vol] 15.4 g/dL Normal 11.8-15.4 [facility] Comment on above: Performed By: #### O UTREACH GLYCO, OUTREACH LIPID, OUTREACH CMP, CBCNOOUTREACH #### [address] MCH (RBC) [Entitic mass] 27.3 pg Normal 24.7-34.3 [facility] Comment on above: Performed By: #### O UTREACH GLYCO, OUTREACH LIPID, OUTREACH CMP, CBCNOOUTREACH #### [address] MCV (RBC) [Entitic vol] 83.0 fL Normal 80-100 [facility] Comment on above: Performed By: #### O UTREACH GLYCO, OUTREACH LIPID, OUTREACH CMP, CBCNOOUTREACH #### [address] Mean Corpuscular HGB Conc 32.9 g/dL Normal 32.0-35.0 [facility] Comment on above: Performed By: #### O UTREACH GLYCO, OUTREACH LIPID, OUTREACH CMP, CBCNOOUTREACH #### [address] Platelet mean volume (Bld) [Entitic vol] 8.6 fL Normal 6.3-10.7 [facility] Comment on above: Result Comment: PERF ORMED BY: [place] [address] PATHOLOGIST VICE PRESIDENT OF CONSULTING SERVICES KYLE HUBBARD M.D. Performed By: #### O UTREACH GLYCO, OUTREACH LIPID, OUTREACH CMP, CBCNOOUTREACH #### [place] [address] [place] Platelets (Bld) [#/Vol] 291 10*3/uL Normal 150-450 [facility] Comment on above: Performed By: #### O UTREACH GLYCO, OUTREACH LIPID, OUTREACH CMP, CBCNOOUTREACH #### [place] [address] [place] RBC (Bld) [#/Vol] 5.62 10*6/uL High 3.60-5.00 [facility] Comment on above: Performed By: #### O UTREACH GLYCO, OUTREACH LIPID, OUTREACH CMP, CBCNOOUTREACH #### [facility] [address] WBC (Bld) [#/Vol] 9.1 10*3/uL Normal 3.8-11.6 [facility] Comment on above: Performed By: #### O UTREACH GLYCO, OUTREACH LIPID, OUTREACH CMP, CBCNOOUTREACH #### [facility] [address] CMP Outreachon 05-27-2023 Albumin [Mass/Vol] 4.1 g/dL Normal 3.5-5.7 [facility] Comment on above: Performed By: #### O UTREACH GLYCO, OUTREACH LIPID, OUTREACH CMP, CBCNOOUTREACH #### [facility] [address] ALP [Catalytic activity/Vol] 135 U/L High 34-104 [facility] Comment on above: Performed By: #### O UTREACH GLYCO, OUTREACH LIPID, OUTREACH CMP, CBCNOOUTREACH #### [facility] [address] ALT [Catalytic activity/Vol] 20 U/L Normal 7-52 [facility] Comment on above: Performed By: #### O UTREACH GLYCO, OUTREACH LIPID, OUTREACH CMP, CBCNOOUTREACH #### [facility] [address] Anion gap [Moles/Vol] 9.6 mmol/L Normal 6.0-15.0 [facility] Comment on above: Performed By: #### O UTREACH GLYCO, OUTREACH LIPID, OUTREACH CMP, CBCNOOUTREACH #### [facility] [address] AST [Catalytic activity/Vol] 17 U/L Normal 13-39 [facility] Comment on above: Performed By: #### O UTREACH GLYCO, OUTREACH LIPID, OUTREACH CMP, CBCNOOUTREACH #### [facility] [address] [place] [address] [place] Bilirubin [Mass/Vol] 0.6 mg/dL Normal 0.3-1.0 [facility] Comment on above: Performed By: #### O UTREACH GLYCO, OUTREACH LIPID, OUTREACH CMP, CBCNOOUTREACH #### [facility] [address] [place] [address] [place] Calcium [Mass/Vol] 9.4 mg/dL Normal 8.6-10.3 [facility] Comment on above: Performed By: #### O UTREACH GLYCO, OUTREACH LIPID, OUTREACH CMP, CBCNOOUTREACH #### [facility] [address] [place] [address] [place] Chloride [Moles/Vol] 105 mmol/L Normal 98-107 [facility] Comment on above: Performed By: #### O UTREACH GLYCO, OUTREACH LIPID, OUTREACH CMP, CBCNOOUTREACH #### [facility] [address] [place] [address] [place] CO2 [Moles/Vol] 31.6 mmol/L High 21.0-31.0 [facility] Comment on above: Performed By: #### O UTREACH GLYCO, OUTREACH LIPID, OUTREACH CMP, CBCNOOUTREACH #### [facility] [address] [place] [address] [place] Creatinine [Mass/Vol] 1.14 mg/dL Normal 0.60-1.20 [facility] Comment on above: Performed By: #### O UTREACH GLYCO, OUTREACH LIPID, OUTREACH CMP, CBCNOOUTREACH #### [facility] [address] [place] [address] [place] GFR/1.73 sq M.predicted MDRD (S/P/Bld) [Vol rate/Area] 53.757 mL/min/{1.73_m2} Normal [facility] Comment on above: Performed By: #### O UTREACH GLYCO, OUTREACH LIPID, OUTREACH CMP, CBCNOOUTREACH #### [facility] [address] [place] [address] [place] Glucose [Mass/Vol] 203 mg/dL High 70-100 [facility] Comment on above: Result Comment: [facility] Glucose Reference Range is dependent on time and content of last meal. Glucose of more than 200 mg/dL in a nonstressed, ambulatory subject supports the diagnosis of Diabetes Mellitus. ADA recommended reference range Performed By: #### O UTREACH GLYCO, OUTREACH LIPID, OUTREACH CMP, CBCNOOUTREACH #### [facility] [address] Potassium [Moles/Vol] 4.2 mmol/L Normal 3.5-5.1 [facility] Comment on above: Performed By: #### O UTREACH GLYCO, OUTREACH LIPID, OUTREACH CMP, CBCNOOUTREACH #### [facility] [address] [place] [address] [place] Protein [Mass/Vol] 6.8 g/dL Normal 6.4-8.9 [facility] Comment on above: Performed By: #### O UTREACH GLYCO, OUTREACH LIPID, OUTREACH CMP, CBCNOOUTREACH #### [facility] [address] [place] [address] [place] Sodium [Moles/Vol] 142 mmol/L Normal 136-145 [facility] Comment on above: Performed By: #### O UTREACH GLYCO, OUTREACH LIPID, OUTREACH CMP, CBCNOOUTREACH #### [facility] [address] [place] [address] [place] Urea nitrogen [Mass/Vol] 20 mg/dL Normal 7-25 [facility] Comment on above: Performed By: #### O UTREACH GLYCO, OUTREACH LIPID, OUTREACH CMP, CBCNOOUTREACH #### [facility] [address] [place] [address] [place] Calcium [Mass/volume] in Ser um or PlasmaOrdered By: OUTREACH COMMUNITY on 05-27-2023 Calcium [Mass/Vol] 9.4 mg/dL 8.6-10.3 [facility] Carbon dioxide, total [Moles /volume] in Serum or PlasmaOrdered By: OUTREACH COMMUNITY on 05-27-2023 CO2 [Moles/Vol] 31.6 mmol/L 21.0-31.0 [facility] Chloride [Moles/volume] in S lyn or PlasmaOrdered By: OUTREACH [facility] on 05-27-2023 Chloride [Moles/Vol] 105 mmol/L 98-107 [facility] Cholesterol [Mass/volume] in Serum or PlasmaOrdered By: [facility] on 05-27-2023 Cholesterol [Mass/Vol] 186 mg/dL 140-200 [facility] Comment on above: Chol less than 200 m g/dl low riskChol 201-239 mg/dl borderline riskChol 240 mg/dl and greater high risk Cholesterol in LDL Calc [Mas s/Vol]Ordered By: [facility] on 05-27-2023 Cholesterol in LDL [Mass/Vol] 92 mg/dL 0-100 [facility] Comment on above: LDL ATP III CLASSIFI CATIONLDL less than 100 mg/dL OptimalLDL 100-129 mg/dL Near or above optimalLDL 130-159 mg/dL Borderline highLDL 160-189 mg/dL HighLDL greater than 189 mg/dL Very high Cholesterol in VLDL Calc [Ma ss/Vol]Ordered By: [facility] on 05-27-2023 Cholesterol in VLDL [Mass/Vol] 47 mg/dL [facility] Creatinine [Mass/volume] in Serum or PlasmaOrdered By: [facility] on 05-27-2023 Creatinine [Mass/Vol] 1.14 mg/dL 0.60-1.20 [facility] Erythrocyte distribution wid th Auto (RBC) [Ratio]Ordered By: [facility] on 05-27-2023 Erythrocyte distribution width (RBC) [Ratio] 14.8 % 11.9-15.3 [facility] Glucose [Mass/volume] in Ser um or PlasmaOrdered By: [facility] on 05-27-2023 Glucose [Mass/Vol] 203 mg/dL 70-100 [facility] Comment on above: ADA recommended refe rence rangeRandom Glucose Reference Range is dependent on time and content of last meal. Glucose of more than 200 mg/dL in a nonstressed, ambulatory subject supports the diagnosis of Diabetes Mellitus. Hematocrit Auto (Bld) [Volum e fraction]Ordered By: OUTREACH [facility] on 05-27-2023 Hematocrit (Bld) [Volume fraction] 46.7 % 34.0-46.4 [facility] Hemoglobin [Mass/volume] in BloodOrdered By: [facility] on 05-27-2023 Hemoglobin (Bld) [Mass/Vol] 15.4 g/dL 11.8-15.4 [facility] Leukocytes [#/volume] correc suraj for nucleated erythrocytes in Blood by Automated counOrdered By: [facility] on 05-27-2023 WBC corrected for nucl RBC Auto (Bld) [#/Vol] 9.1 10*3/uL 3.8-11.6 [facility] Lipid Profile [facility] Cholesterol [Mass/Vol] 186 mg/dL Normal 140-200 [facility] Comment on above: Result Comment: Chol less than 200 mg/dl low risk Chol 201-239 mg/dl borderline risk Chol 240 mg/dl and greater high risk Performed By: #### O UTREACH GLYCO, OUTREACH LIPID, OUTREACH CMP, CBCNOOUTREACH #### [facility] [address] Cholesterol in HDL [Mass/Vol] 47 mg/dL Normal 23-92 [facility] Comment on above: Result Comment: HDL CHOL ATP-III CLASSIFICATION Cardiovascular Risk HDL > or equal to 60 mg/dL LOW HDL < 40 mg/dL HIGH Performed By: #### O UTREACH GLYCO, OUTREACH LIPID, OUTREACH CMP, CBCNOOUTREACH #### [facility] [address] [id number] [facility] Cholesterol.total/Colleen sterol in HDL [Mass ratio] 4.0 {ratio} Normal <5.0 [facility] Comment on above: Result Comment: PERF ORMED BY: [facility] [address] [place] [address] PATHOLOGIST VICE PRESIDENT OF CONSULTING SERVICES KYLE HUBBARD M.D. Performed By: #### O UTREACH GLYCO, OUTREACH LIPID, OUTREACH CMP, CBCNOOUTREACH #### [facility] [address] [id number] [facility] LDL Cholesterol,Calculated 92 mg/dL Normal 0-100 [facility] Comment on above: Result Comment: LDL ATP III CLASSIFICATION LDL less than 100 mg/dL Optimal LDL 100-129 mg/dL Near or above optimal LDL 130-159 mg/dL Borderline high LDL 160-189 mg/dL High LDL greater than 189 mg/dL Very high Performed By: #### O UTREACH GLYCO, OUTREACH LIPID, OUTREACH CMP, CBCNOOUTREACH #### [facility] [address] Triglyceride w/Reflex 235 mg/dL High 0-149 [facility] Comment on above: Result Comment: TRIG ATP III CLASSIFICATION TRIG less than 150 mg/dL Normal TRIG 150-199 mg/dL Borderline high TRIG 200-500 mg/dL High TRIG greater than 500 mg/dL Very high Standard traceable to the Center for Disease Conrtrol and Prevention (CDC) test method. Performed By: #### O UTREACH GLYCO, OUTREACH LIPID, OUTREACH CMP, CBCNOOUTREACH #### [facility] [address] VLDL CHOLESTEROL 47 mg/dL Normal [facility] Comment on above: Performed By: #### O UTREACH GLYCO, OUTREACH LIPID, OUTREACH CMP, CBCNOOUTREACH #### [facility] [address] MCH Auto (RBC) [Entitic mass ]Ordered By: OUTREACH COMMUNITY on 05-27-2023 MCH (RBC) [Entitic mass] 27.3 pg 24.7-34.3 [facility] MCHC Auto (RBC) [Mass/Vol]Or dered By: OUTREACH COMMUNITY on 05-27-2023 MCHC (RBC) [Mass/Vol] 32.9 g/dL 32.0-35.0 [facility] MCV Auto (RBC) [Entitic vol] Ordered By: OUTREACH COMMUNITY on 05-27-2023 MCV (RBC) [Entitic vol] 83.0 fL 80-100 [facility] No Panel InformationOrdered By: OUTREACH COMMUNITY on 05-27-2023 Estimated GFR (CKD-EPI) 53.757 mL/Min [facility] Creatinine Clearance (Chem N/A [facility] Outreach Glycoon 05-27-2023 Glucose [Mass/Vol] 269 mg/dL Normal [facility] Comment on above: Result Comment: PERF ORMED BY: [place] [address] PATHOLOGIST VICE PRESIDENT OF CONSULTING SERVICES KYLE HUBBARD M.D. Performed By: #### O UTREACH GLYCO, OUTREACH LIPID, OUTREACH CMP, CBCNOOUTREACH #### [facility] [address] HbA1c (Bld) [Mass fraction] 11.0 % High 4.3-5.6 [facility] Comment on above: Result Comment: Incr eased risk for diabetes: 5.7 - 6.4 diabetes: >6.4 glycemic control for adults with diabetes: <7.0 Performed By: #### O UTREACH GLYCO, OUTREACH LIPID, OUTREACH CMP, CBCNOOUTREACH #### [facility] [address] Platelet mean volume Auto (B ld) [Entitic vol]Ordered By: OUTREACH COMMUNITY on 05-27-2023 Platelet mean volume (Bld) [Entitic vol] 8.6 fL 6.3-10.7 [facility] Platelets Auto (Bld) [#/Vol] Ordered By: OUTREACH [facility] on 05-27-2023 Platelets (Bld) [#/Vol] 291 10*3/uL 150-450 [facility] Potassium [Moles/volume] in Serum or PlasmaOrdered By: OUTREACH COMMUNITY on 05-27-2023 Potassium [Moles/Vol] 4.2 mmol/L 3.5-5.1 [facility] Protein [Mass/volume] in Ser um or PlasmaOrdered By: OUTREACH COMMUNITY on 05-27-2023 Protein [Mass/Vol] 6.8 g/dL 6.4-8.9 [facility] RBC Auto (Bld) [#/Vol]Ordere d By: OUTREACH COMMUNITY on 05-27-2023 RBC (Bld) [#/Vol] 5.62 10*6/uL 3.60-5.00 [facility] Serum or plasma anion gap de terminationOrdered By: OUTREACH COMMUNITY on 05-27-2023 Anion gap [Moles/Vol] 9.6 mmol/L 6.0-15.0 [facility] Serum or plasma high density lipoprotein (HDL) cholesterol measurementOrdered By: OUTREACH COMMUNITY on 05-27-2023 Cholesterol in HDL [Mass/Vol] 47 mg/dL 23-92 [facility] Comment on above: HDL CHOL ATP-III CLA SSIFICATION Cardiovascular RiskHDL > or equal to 60 mg/dL LOWHDL < 40 mg/dL HIGH Serum or plasma total choles terol/high density lipoprotein (HDL) cholesterol mass ratOrdered By: OUTREACH COMMUNITY on 05-27-2023 Cholesterol.total/Colleen sterol in HDL [Mass ratio] 4.0 {ratio} <5.0 [facility] Sodium [Moles/volume] in Ser um or PlasmaOrdered By: OUTREACH COMMUNITY on 05-27-2023 Sodium [Moles/Vol] 142 mmol/L 136-145 [facility] Triglyceride [Mass/volume] i n Serum or PlasmaOrdered By: OUTREACH COMMUNITY on 05-27-2023 Triglyceride [Mass/Vol] 235 mg/dL 0-149 [facility] Comment on above: TRIG ATP III CLASSIF ICATIONTRIG less than 150 mg/dL NormalTRIG 150-199 mg/dL Borderline highTRIG 200-500 mg/dL High TRIG greater than 500 mg/dL Very highStandard traceable to the Center for Disease Conrtrol and Prevention (CDC) test method. Urea nitrogen [Mass/volume] in Serum or PlasmaOrdered By: OUTREACH COMMUNITY on 05-27-2023 Urea nitrogen [Mass/Vol] 20 mg/dL 7-25 [facility] GLYCOHEMOGLOBIN A1Con 2022 ADA RECOMMENDATION SEE BELOW Normal [facility] Comment on above: Result Comment: ADA RECOMMENDED LIMIT 4.0 - 6.0 ADA THERAPEUTIC TARGET < 7.0 ACTION SUGGESTED > 7.0 Performed By: #### D ATA1C #### [facility] [address] [address] [address] Magno Ramirez Glucose [Mass/Vol] 229 mg/dL Normal [facility] Comment on above: Performed By: #### D ATA1C #### [facility] [address] [address] [address] Magno Ramirez HbA1c (Bld) [Mass fraction] 9.6 % Critically high 4.5-6.2 [facility] Comment on above: Performed By: #### D ATA1C #### [facility] [address] [address] [address] Magno Ramirez MG MAMM SCREEN 3D FRANCE CADon 04-22-2022 MG MAMM SCREEN 3D FRANCE CAD Patient: PATRICIA PLAZA Exam Date: 04/22/2022 : 1960 Gender:F Ordering : DR DONNIE HEBERT D.O. Admission #: [id number] Family : Order #: [id number] CLICK HERE TO VIEW EXAM RADIOLOGY REPORT PROCEDURE: MAMMOGRAM SCREENING 3D BILATERAL CAD COMPARISON: MG MAMM FRANCE SCRN W CAD DIG, 06/20/2013. INDICATIONS: Screening mammography Calculator Name NCI Breast Cancer Risk Assessment Tool 5 Year Breast Cancer Risk 1.10% Lifetime Breast Cancer Risk 4.90% Personal Breast Cancer No Personal Ovarian Cancer No Treatments None Family Cancers Mother with skin cancer at age 50; Father with skin cancer at age 50. LOCATION: [facility] BREAST COMPOSITION: Heterogeneously dense,which may obscure small masses. FINDINGS: DIAGNOSTIC CATEGORY 2--BENIGN FINDING. NO CHANGE FROM COMPARISON. Scattered benign-appearing nodules are present. Scattered benign-appearing calcifications are present. Scattered benign-appearing lymph nodes are present. RIGHT BREAST: No significant suspicious finding. LEFT BREAST: No significant suspicious finding. RECOMMENDATIONS: ROUTINE MAMMOGRAM AND CLINICAL EVALUATION IN 12 MONTHS. PLEASE NOTE: A NORMAL MAMMOGRAM DOES NOT EXCLUDE THE POSSIBILITY OF BREAST CANCER. A CLINICALLY SUSPICIOUS PALPABLE LUMP SHOULD BE BIOPSIED. Dictated by: Bola Pearce MD on 04/22/2022 at 14:53 Approved by: Bola Pearce MD on 04/22/2022 at 14:58 Normal [facility] Albumin [Mass/volume] in Ser um or PlasmaOrdered By: OUTREACH COMMUNITY on 04-02-2022 Albumin [Mass/Vol] 3.5 g/dL 3.2-5.5 [facility] Blood hemoglobin measurement (mass/volume)Ordered By: OUTREACH COMMUNITY on 04-02-2022 Hemoglobin (Bld) [Mass/Vol] 15.2 g/dL 11.8-15.4 [facility] Cholesterol [Mass/volume] in Serum or PlasmaOrdered By: OUTREACH COMMUNITY on 04-02-2022 Cholesterol [Mass/Vol] 173 mg/dL 140-200 [facility] Comment on above: Chol less than 200 m g/dl low riskChol 201-239 mg/dl borderline riskChol 240 mg/dl and greater high risk Cholesterol in LDL Calc [Mas s/Vol]Ordered By: OUTREACH COMMUNITY on 04-02-2022 Cholesterol in LDL [Mass/Vol] 94 mg/dL 0-100 [facility] Comment on above: LDL ATP III CLASSIFI CATIONLDL less than 100 mg/dL OptimalLDL 100-129 mg/dL Near or above optimalLDL 130-159 mg/dL Borderline highLDL 160-189 mg/dL HighLDL greater than 189 mg/dL Very high Cholesterol in VLDL Calc [Ma ss/Vol]Ordered By: OUTREACH COMMUNITY on 04-02-2022 Cholesterol in VLDL [Mass/Vol] 36 mg/dL [facility] Creatinine and Glomerular fi ltration rate.predicted panel (S/P/Bld)Ordered By: OUTREACH COMMUNITY on 04-02-2022 Creatinine [Mass/Vol] 1.11 mg/dL 0.44-1.03 [facility] Erythrocyte distribution wid th Auto (RBC) [Ratio]Ordered By: OUTREACH COMMUNITY on 04-02-2022 Erythrocyte distribution width (RBC) [Ratio] 14.8 % 11.9-15.3 [facility] Estimated glomerular filtrat ion rate (GFR) non- AmericanOrdered By: OUTREACH COMMUNITY on 04-02-2022 GFR/1.73 sq M.predicted among non-blacks MDRD (S/P/Bld) [Vol rate/Area] 50 mL/Min [facility] Hematocrit Auto (Bld) [Volum e fraction]Ordered By: OUTREACH COMMUNITY on 04-02-2022 Hematocrit (Bld) [Volume fraction] 47.1 % 34.0-46.4 [facility] MCH Auto (RBC) [Entitic mass ]Ordered By: OUTREACH COMMUNITY on 04-02-2022 MCH (RBC) [Entitic mass] 26.9 pg 24.7-34.3 [facility] MCHC Auto (RBC) [Mass/Vol]Or dered By: OUTREACH COMMUNITY on 04-02-2022 MCHC (RBC) [Mass/Vol] 32.3 g/dL 32.0-35.0 [facility] MCV Auto (RBC) [Entitic vol] Ordered By: OUTREACH COMMUNITY on 04-02-2022 MCV (RBC) [Entitic vol] 83.3 fL 80-100 [facility] No Panel InformationOrdered By: OUTREACH [facility] on 04-02-2022 Estimated GFR () 60 mL/Min [facility] Comment on above: GFR estimated refere nce range: According to KDOQI guidelines, <60 ml/min/1.73m2 is sufficient to diagnose a patient with chronic kidney disease. Pharmacy Creatinine Clearance (Chem N/A [facility] Triglycerides Reflex 180 mg/dL 35-149 [facility] Comment on above: TRIG ATP III CLASSIF ICATIONTRIG less than 150 mg/dL NormalTRIG 150-199 mg/dL Borderline highTRIG 200-500 mg/dL High TRIG greater than 500 mg/dL Very highStandard traceable to the Center for Disease Conrtrol and Prevention (CDC) test method. Platelet mean volume Auto (B ld) [Entitic vol]Ordered By: OUTREACH [facility] on 04-02-2022 Platelet mean volume (Bld) [Entitic vol] 8.6 fL 6.3-10.7 [facility] Platelets Auto (Bld) [#/Vol] Ordered By: [facility] on 04-02-2022 Platelets (Bld) [#/Vol] 271 10*3/uL 150-450 [facility] Protein [Mass/volume] in Ser um or PlasmaOrdered By: [facility] on 04-02-2022 Protein [Mass/Vol] 6.3 g/dL 6.1-7.9 [facility] RBC Auto (Bld) [#/Vol]Ordere d By: [facility] on 04-02-2022 RBC (Bld) [#/Vol] 5.65 10*6/uL 3.60-5.00 [facility] Serum or plasma alanine lópez otransferase measurement without P-5'-P (enzymatic activiOrdered By: OUTREACH [facility] on 04-02-2022 ALT No additional P-5'-P [Catalytic activity/Vol] 24 U/L 10-60 [facility] Serum or plasma alkaline aviva sphatase measurement (enzymatic activity/volume)Ordered By: OUTREACH [facility] on 04-02-2022 ALP [Catalytic activity/Vol] 124 U/L 32-92 [facility] Serum or plasma anion gap de terminationOrdered By: [facility] on 04-02-2022 Anion gap [Moles/Vol] 11.7 mmol/L 6.0-15.0 [facility] Serum or plasma aspartate am inotransferase measurement (enzymatic activity/volume)Ordered By: [facility] on 04-02-2022 AST [Catalytic activity/Vol] 23 U/L 10-42 [facility] Serum or plasma calcium wanda urement (mass/volume)Ordered By: [facility] on 04-02-2022 Calcium [Mass/Vol] 9.4 mg/dL 8.2-10.2 [facility] Serum or plasma chloride melvin surement (moles/volume)Ordered By: [facility] on 04-02-2022 Chloride [Moles/Vol] 103 mmol/L 95-114 [facility] Serum or plasma glucose wanda urement (mass/volume)Ordered By: [facility] on 04-02-2022 Glucose [Mass/Vol] 180 mg/dL 70-100 [facility] Comment on above: ADA recommended refe rence rangeRandom Glucose Reference Range is dependent on time and content of last meal. Glucose of more than 200 mg/dL in a nonstressed, ambulatory subject supports the diagnosis of Diabetes Mellitus. Serum or plasma high density lipoprotein (HDL) cholesterol measurementOrdered By: [facility] on 04-02-2022 Cholesterol in HDL [Mass/Vol] 43 mg/dL 35-85 [facility] Comment on above: HDL CHOL ATP-III CLA SSIFICATION Cardiovascular RiskHDL > or equal to 60 mg/dL LOWHDL < 40 mg/dL HIGH Serum or plasma potassium me asurement (moles/volume)Ordered By: [facility] on 04-02-2022 Potassium [Moles/Vol] 4.0 mmol/L 3.5-5.1 [facility] Serum or plasma sodium measu rement (moles/volume)Ordered By: [facility] on 04-02-2022 Sodium [Moles/Vol] 138 mmol/L 136-146 [facility] Serum or plasma total biliru bin measurement (mass/volume)Ordered By: [facility] on 04-02-2022 Bilirubin [Mass/Vol] 0.8 mg/dL 0.3-1.2 [facility] Serum or plasma total carbon dioxide measurement (moles/volume)Ordered By: [facility] on 04-02-2022 CO2 [Moles/Vol] 27.3 mmol/L 22.0-30.0 [facility] Serum or plasma total choles terol/high density lipoprotein (HDL) cholesterol mass ratOrdered By: [facility] on 04-02-2022 Cholesterol.total/Colleen sterol in HDL [Mass ratio] 4.0 {ratio} <5.0 [facility] Serum or plasma urea nitroge n measurement (mass/volume)Ordered By: [facility] on 04-02-2022 Urea nitrogen [Mass/Vol] 14 mg/dL 03-18 [facility] WBC Auto (Bld) [#/Vol]Ordere d By: [facility] on 04-02-2022 WBC (Bld) [#/Vol] 8.4 10*3/uL 3.8-11.6 [facility] Vital Signs Date Time Vital Sign Value Performing Clinician Facility 11-05-2024 14:03040 Body height 177.8 cm Saul ROBBINS Work Phone: [facility] 11-05-2024 14:03-0400 Body mass index (BMI) [Ratio] 34.87 kg/m2 Saul ROBBINS Work Phone: [facility] 11-05-2024 14:03040 Body weight 110.22 kg Saul ROBBINS Work Phone: [facility] 09-16-2024 11:39-0400 Body height 175.26 cm [place] 09-16-2024 11:39-0400 Body mass index (BMI) [Ratio] 38.2 kg/m2 [facility] 09-16-2024 11:39-0400 Body weight 117.59 kg [place] 09-16-2024 11:39-0400 Diastolic blood pressure 80 mm[Hg] [facility] 09-16-2024 11:39-0400 Heart rate 81 /min [place] 09-16-2024 11:39-0400 Respiratory rate 12 /min [facility] 09-16-2024 11:39-0400 Systolic blood pressure 152 mm[Hg] [facility] 08-12-2024 16:37-0500 Body height 175.26 cm [place] 08-12-2024 16:37-0500 Body mass index (BMI) [Ratio] 38.4 kg/m2 [facility] 08-12-2024 16:37-0500 Body temperature 97.2 [degF] [facility] 08-12-2024 16:37-0500 Body weight 117.93 kg [place] 08-12-2024 16:37-0500 Diastolic blood pressure 80 mm[Hg] [facility] 08-12-2024 16:37-0500 Heart rate 91 /min [place] 08-12-2024 16:37-0500 Respiratory rate 12 /min [facility] 08-12-2024 16:37-0500 Systolic blood pressure 152 mm[Hg] [facility] 06-24-2024 11:49-0500 Body height 175.26 cm [place] 06-24-2024 11:49-0500 Body mass index (BMI) [Ratio] 37.3 kg/m2 [facility] 06-24-2024 11:49-0500 Body weight 114.75 kg [place] 06-24-2024 11:49-0500 Diastolic blood pressure 89 mm[Hg] [facility] 06-24-2024 11:49-0500 Heart rate 83 /min [place] 06-24-2024 11:49-0500 Respiratory rate 14 /min [facility] 06-24-2024 11:49-0500 Systolic blood pressure 139 mm[Hg] [facility] 04-11-2024 14:27-0400 Body mass index (BMI) [Ratio] 36.1 kg/m2 [facility] 04-11-2024 14:27-0400 Respiratory rate 18 /min [facility] 04-11-2024 14:13-0400 Body height 175.26 cm [place] 04-11-2024 14:13-0400 Body weight 111.18 kg [place] 04-11-2024 14:13-0400 Diastolic blood pressure 81 mm[Hg] [facility] 04-11-2024 14:13-0400 Heart rate 84 /min [place] 04-11-2024 14:13-0400 SaO2% (BldA) [Mass fraction] 95 % [facility] 04-11-2024 14:13-0400 Systolic blood pressure 139 mm[Hg] [facility] 03-20-2024 11:02-0400 Body height 175.26 cm [place] 03-20-2024 11:02-0400 Body mass index (BMI) [Ratio] 35.9 kg/m2 [facility] 03-20-2024 11:02-0400 Body weight 110.22 kg [place] 03-20-2024 11:02-0400 Diastolic blood pressure 86 mm[Hg] [facility] 03-20-2024 11:02-0400 Heart rate 81 /min [place] 03-20-2024 11:02-0400 SaO2% (BldA) [Mass fraction] 96 % [facility] 03-20-2024 11:02-0400 Systolic blood pressure 138 mm[Hg] [facility] 03-05-2024 15:03-0400 Body height 175.26 cm [place] 03-05-2024 15:03-0400 Body mass index (BMI) [Ratio] 36.3 kg/m2 [facility] 03-05-2024 15:03-0400 Body weight 111.58 kg [place] 03-05-2024 15:03-0400 Diastolic blood pressure 77 mm[Hg] [facility] 03-05-2024 15:03-0400 Heart rate 73 /min [place] 03-05-2024 15:03-0400 Respiratory rate 18 /min [facility] 03-05-2024 15:03-0400 SaO2% (BldA) [Mass fraction] 95 % [facility] 03-05-2024 15:03-0400 Systolic blood pressure 150 mm[Hg] [facility] 01-11-2024 13:53-0400 Body mass index (BMI) [Ratio] 35.53 kg/m2 Berta Khalil DO Work Phone: [facility] 01-11-2024 13:53-0400 Body weight 109.14 kg Berta Khalil DO Work Phone: [facility] 01-11-2024 13:53-0400 Diastolic blood pressure 68 mm[Hg] Berta Khalil DO Work Phone: [facility] 01-11-2024 13:53-0400 Systolic blood pressure 126 mm[Hg] Berta Khalil DO Work Phone: [facility] 12-15-2023 11:48-0400 Body height 175.26 cm [place] 12-15-2023 11:48-0400 Body mass index (BMI) [Ratio] 35.4 kg/m2 [facility] 12-15-2023 11:48-0400 Body weight 108.63 kg [place] 12-15-2023 11:48-0400 Diastolic blood pressure 76 mm[Hg] [facility] 12-15-2023 11:48-0400 Heart rate 76 /min [place] 12-15-2023 11:48-0400 Respiratory rate 12 /min [facility] 12-15-2023 11:48-0400 Systolic blood pressure 111 mm[Hg] [facility] 12-07-2023 13:31-0400 Body mass index (BMI) [Ratio] 35.29 kg/m2 Berta Khalil DO Work Phone: [facility] 12-07-2023 13:31-0400 Body weight 108.41 kg Berta Khalil DO Work Phone: [facility] 12-07-2023 13:31-0400 Diastolic blood pressure 68 mm[Hg] Berta Khalil DO Work Phone: [facility] 12-07-2023 13:31-0400 Systolic blood pressure 142 mm[Hg] Bert[facility] Khalil DO [facility] 11-09-2023 13:25-0400 Body mass index (BMI) [Ratio] 35.15 kg/m2 Berta Khalil DO Work [facility]: [facility] 11-09-2023 13:25-0400 Body weight 107.96 kg Berta Khalil DO [facility] 11-09-2023 13:25-0400 Diastolic blood pressure 82 mm[Hg] Berta Khalil DO [facility] 11-09-2023 13:25-0400 Systolic blood pressure 144 mm[Hg] Berta Khalil DO Work Phone: [facility] 06-07-2023 11:00-0500 Body height 175.26 cm Donnie Ball Other [employer] Other 06-07-2023 11:00-0500 Body mass index (BMI) [Ratio] 35.97 kg/m2 Donnie Ball Other [employer] Other 06-07-2023 11:00-0500 Body weight 110.5 kg Donnie Ball Other [employer] Other 06-07-2023 11:00-0500 Diastolic blood pressure 76 mm[Hg] Donnie Ball Other [employer] Other 06-07-2023 11:00-0500 Respiratory rate 12 /min Donnie Ball Other [employer] Other 06-07-2023 11:00-0500 Systolic blood pressure 106 mm[Hg] Donnie Ball Other [employer] Other 01-11-2023 10:30-0400 Body height 175.26 cm Donnie Ball Other [employer] Other 01-11-2023 10:30-0400 Body mass index (BMI) [Ratio] 35.76 kg/m2 Donnie Ball Other [employer] Other 01-11-2023 10:30-0400 Body weight 109.86 kg Donnie Ball Other [employer] Other 01-11-2023 10:30-0400 Diastolic blood pressure 74 mm[Hg] Donnie Ball Other [employer] Other 01-11-2023 10:30-0400 Respiratory rate 12 /min Donnie Ball Other [employer] Other 01-11-2023 10:30-0400 Systolic blood pressure 127 mm[Hg] Donnie Ball Other [employer] Other 07-14-2022 12:30-0500 Body height 175.26 cm Donnie Ball Other [employer] Other 07-14-2022 12:30-0500 Body mass index (BMI) [Ratio] 36.26 kg/m2 Donnie Ball Other [employer] Other 07-14-2022 12:30-0500 Body weight 111.4 kg Donnie Ball Other [employer] Other 07-14-2022 12:30-0500 Diastolic blood pressure 78 mm[Hg] Donnie Ball Other [employer] Other 07-14-2022 12:30-0500 Respiratory rate 12 /min Donnie Ball Other [employer] Other 07-14-2022 12:30-0500 Systolic blood pressure 122 mm[Hg] Donnie Hebert Other [facility] [employer] Other Encounters Encounter Date Encounter Type Care Provider Facility Start: 12-07-2024 End: 12-07-2024 ambulatory Ari Sánchez Facility:[facility] Start: 12-07-2024 End: 12-07-2024 Patient encounter procedure Ari áSnchez [facility] Start: 12-05-2024 End: 12-05-2024 ambulatory Richard Vergara Facility:[facility] Start: 12-05-2024 End: 12-05-2024 Patient encounter procedure Richard Vergara [facility] Start: 11-15-2024 End: 11-18-2024 Refill Bradley Pereyra [employer] Work Phone: [facility] Comment on above: Internal derangement of left knee (Primary Dx) Start: 11-14-2024 End: 11-14-2024 ambulatory DINORAH SYLVESTER Not Available Start: 11-06-2024 End: 11-06-2024 Telephone encounter Dinorah Sylvester PT Work Phone: [facility] Comment on above: PT Prehab (Dos 11/19) ; Call Back Start: 11-05-2024 End: 11-05-2024 Bamboo flowsheet Saul ROBBINS Work Phone: [facility] Start: 11-05-2024 End: 11-05-2024 Bamboo flowsheet Saul ROBBINS Work Phone: [facility] Start: 11-05-2024 End: 11-05-2024 External Result Encounter Saul ROBBINS Work Phone: [facility] Unsolicited Start: 11-05-2024 End: 11-05-2024 Orders Only Saul ROBBINS Work Phone: [facility] Start: 11-05-2024 End: 11-05-2024 Patient encounter procedure Saul ROBBINS Work Phone: [facility] Comment on above: Pre-op examination ( Primary Dx) Start: 11-05-2024 End: 11-05-2024 Preprocedural examination done Saul ROBBINS Work Phone: [facility] Start: 11-05-2024 End: 11-05-2024 ambulatory SAUL HUERTA Not Available Start: 09-16-2024 End: 09-16-2024 ambulatory [facility] Work Phone: Start: 09-16-2024 End: 09-16-2024 Patient encounter procedure [facility] Work Phone: Start: 08-28-2024 End: 08-28-2024 Feliciano Delacruz DO Work Phone: [facility] Start: 08-28-2024 End: 08-28-2024 Bamnaif Cevallos Stepanic DO Work Phone: [facility] Start: 08-28-2024 End: 08-28-2024 Office outpatient visit 25 minutes Jr. Oliver Delacruz DO Work Phone: [facility] Comment on above: Acute pain of left k nee (Primary Dx); Internal derangement of left knee; Arthritis of left knee Start: 08-28-2024 End: 08-28-2024 ambulatory OLIVER PIEDRA Not Available Start: 08-26-2024 End: 08-26-2024 ambulatory SAUL HUERTA Not Available Start: 08-15-2024 End: 08-15-2024 Office outpatient visit 15 minutes Saul ROBBINS Work Phone: [facility] Comment on above: Acute pain of left k nee (Primary Dx); Acute pain of right knee; Chondromalacia, patella, left; Chondromalacia, patella, right; Internal derangement of left knee Start: 08-15-2024 End: 08-15-2024 ambulatory SAUL HUERTA Not Available Start: 08-12-2024 End: 08-12-2024 ambulatory [facility] Work Phone: Start: 08-12-2024 End: 08-12-2024 Patient encounter procedure [facility] Work Phone: Start: 06-27-2024 End: 06-27-2024 Bamboo flowsheet Saul Huerta PA Work Phone: [facility] Start: 06-27-2024 End: 06-27-2024 Bamboo flowsheet Saul Huerta PA Work Phone: [facility] Start: 06-27-2024 End: 06-27-2024 Office outpatient visit 25 minutes Saul ROBBINS Work Phone: [facility] Comment on above: Acute pain of left k nee (Primary Dx); Arthritis of left knee Start: 06-27-2024 End: 06-27-2024 ambulatory SAUL HUERTA Not Available Start: 06-24-2024 End: 06-24-2024 Patient encounter procedure [facility] Work Phone: Start: 06-11-2024 End: 06-11-2024 Telephone encounter Saul ROBBINS Work Phone: [facility] Comment on above: steroid Start: 06-07-2024 Non-patient / Non-visit [facility] Work Phone: Start: 06-04-2024 End: 06-04-2024 Bamboo flowsheet Saul Huerta PA Work Phone: [facility] Start: 06-04-2024 End: 06-04-2024 Bamboo flowsheet Saul Huerta PA Work Phone: [facility] Start: 06-04-2024 End: 06-04-2024 ambulatory SAUL HUERTA Not Available Start: 06-04-2024 End: 06-04-2024 Office outpatient visit 25 minutes Saul ROBBINS Work Phone: [facility] Comment on above: Acute pain of right knee (Primary Dx); Acute pain of left knee; Chondromalacia, patella, left; Chondromalacia, patella, right Start: 05-15-2024 End: 05-15-2024 ambulatory [facility] Work Phone: Start: 05-15-2024 End: 05-15-2024 Patient encounter procedure [facility] Work Phone: Start: 04-11-2024 End: 04-11-2024 ambulatory [facility] Work Phone: Start: 04-11-2024 End: 04-11-2024 Patient encounter procedure [facility] Work Phone: Start: 03-20-2024 End: 03-20-2024 ambulatory [facility] Work Phone: Start: 03-20-2024 End: 03-20-2024 Patient encounter procedure [facility] Work Phone: Start: 03-05-2024 End: 03-05-2024 [facility] Work Phone: Start: 03-05-2024 End: 03-05-2024 Patient encounter procedure [facility] Work Phone: Start: 02-02-2024 End: 02-02-2024 [facility] Work Phone: Start: 02-02-2024 End: 02-02-2024 Patient encounter procedure [facility] Work Phone: Start: 01-24-2024 End: 01-24-2024 Orders Only Gaby Nation RN [facility] Comment on above: Dyspareunia in femal e (Primary Dx); Dysuria Start: 01-22-2024 End: 01-23-2024 Telephone encounter Berta Khalil DO Work Phone: [facility] Start: 01-16-2024 End: 01-16-2024 Orders Only Berta Khalil DO Work Phone: [facility] Comment on above: Mauri glabrata inf ection (Primary Dx) Start: 01-11-2024 End: 01-11-2024 ambulatory [facility] Start: 01-11-2024 End: 01-11-2024 ambulatory [facility] Start: 01-11-2024 End: 01-11-2024 Office outpatient visit 15 minutes Berta Khalil DO Work Phone: [facility] Comment on above: Dyspareunia in femal e (Primary Dx); Candidiasis of genitalia in female; Atrophic vaginitis; Acute cystitis without hematuria; Burning with urination; Type 2 diabetes mellitus with other skin complication, unspecified whether technician terminal and repeater insulin use ([facility]); Vaginal itching; Vaginal irritation; Mauri glabrata infection Start: 01-09-2024 End: 01-09-2024 Telephone encounter Awilda Freeman RN [facility] Start: 12-21-2023 End: 12-22-2023 Telephone encounter Bebe Spence [facility] Start: 12-18-2023 Non-patient / Non-visit [facility] Work Phone: Start: 12-15-2023 End: 12-15-2023 ambulatory [facility] Work Phone: Start: 12-15-2023 End: 12-15-2023 Encounter for general adult medical examination without abnormal findings [facility] Start: 12-15-2023 End: 12-15-2023 Patient encounter procedure [facility] Work Phone: Start: 12-07-2023 End: 12-07-2023 ambulatory [facility] Start: 12-07-2023 End: 12-07-2023 Patient encounter procedure Berta Khalil DO Work Phone: [facility] Comment on above: Lichen sclerosus (Pr imary Dx); Vaginal irritation; UTI (urinary tract infection), bacterial; Mauri glabrata infection Start: 12-07-2023 End: 12-07-2023 ambulatory [facility] Start: 11-14-2023 End: 11-14-2023 Orders Only Berta Khalil DO Work Phone: [facility] Comment on above: Acute cystitis witho ut hematuria (Primary Dx); Mauri glabrata infection Start: 11-09-2023 End: 11-09-2023 ambulatory [facility] Start: 11-09-2023 End: 11-09-2023 ambulatory [facility] Start: 11-09-2023 End: 11-09-2023 Office outpatient visit 15 minutes Berta Khalil DO Work Phone: [facility] Comment on above: Vaginal itching (Adriane melvin Dx); Burning with urination; Lichen sclerosus; Candidiasis of genitalia in female; Type 2 diabetes mellitus with other skin complication, unspecified whether technician terminal and repeater insulin use ([facility]); Dyspareunia in female; Atrophic vaginitis Start: 11-06-2023 Non-patient / Non-visit [facility] Work Phone: Start: 06-07-2023 End: 06-07-2023 ambulatory Donnie RxAnte Other [employer] Other Start: 06-07-2023 Office outpatient vi sit 15 minutes Donnie [facility] Start: 05-27-2023 End: 05-27-2023 ambulatory [facility] Start: 05-27-2023 End: 05-27-2023 ambulatory DO Vibrow Work Phone: [facility] Work Phone: Start: 05-27-2023 End: 05-27-2023 Departed Referred DO V[place]row Work Phone: [facility] Work Phone: Start: 04-29-2023 ambulatory Donnie Ball Facility: [facility] Start: 04-19-2023 End: 04-19-2023 ambulatory Donnie Ball Other [employer] Other Start: 04-19-2023 Telephone encounter Donnie Ball [facility] Start: 03-27-2023 End: 03-27-2023 ambulatory Donnie Ball Other [employer] Other Start: 03-27-2023 Telephone encounter Donnie Ball [facility] Start: 01-11-2023 End: 01-11-2023 ambulatory Donnie Ball Other [employer] Other Start: 01-11-2023 Office outpatient vi sit 25 minutes Donnie Ball [facility] Start: 12-30-2022 End: 12-30-2022 ambulatory Donnie Ball Other [employer] Other Start: 12-30-2022 Telephone encounter Donnie Ball [facility] Start: 12-28-2022 End: 12-28-2022 ambulatory Donnie Ball Other [employer] Other Start: 12-28-2022 Telephone encounter Donnie Ball [facility] Start: 11-28-2022 End: 11-28-2022 ambulatory Donnie Ball Other [employer] Other Start: 11-28-2022 Telephone encounter Donnie Ball [facility] Start: 07-17-2022 End: 07-17-2022 ambulatory Donnie Ball Other [employer] Other Start: 07-17-2022 Telephone encounter Donnie Ball [facility] Start: 07-14-2022 End: 07-14-2022 ambulatory Donnie Ball Other [employer] Other Start: 07-14-2022 Encounter for genera l adult medical examination without abnormal findings Donnie Hebert [facility] Start: 07-14-2022 Periodic preventive med est patient 40-64yrs Donnie Hebert [facility] Start: 07-07-2022 End: 07-08-2022 ambulatory NONE LISTED REQUEST Facility:[facility] Start: 06-07-2022 End: 06-08-2022 ambulatory NONE LISTED REQUEST Facility:[facility] Start: 04-22-2022 End: 04-23-[address] DONNIE HEBERT Facility:[facility] Start: 04-02-2022 End: 04-02-2022 ambulatory DO Donnie Hebert Work Phone: [facility] Work Phone: Start: 04-02-2022 End: 04-02-2022 Departed Referred DO Donnie Hebert Work Phone: [facility] Start: 05-06-2021 Adult health examination Dalton Hebert Other [employer] Other Procedures Date Procedure Procedure Detail Performing Clinician Start: 11-05-2024 Basic metabolic pane l calcium total Saul ROBBINS Work Phone: Start: 06-27-2024 Arthrocentesis aspir &/inj major jt/bursa w/o us Saul ROBBINS Work Phone: Start: 06-04-2024 Radiologic examinati on knee 1/2 views Saul ROBBINS Work Phone: Start: 01-11-2024 Follow-up visit Follow-up BERTA KHALIL Start: 12-07-2023 Biopsy Biopsy BERTA GONZALEZ Start: 05-10-2016 Screening for malign ant neoplasm of colon Donnie Hebert Other Screening for malign ant neoplasm of breast Donnie Hebert Other Screening mammography Benjam in [facility] Other Plan of Treatment Date Care Activity Detail Author Start: 01-15-2029 DTaP,Tdap and Td Vaccines (4 - Td or Tdap) DTaP,Tdap and Td Vaccines (4 - Td or Tdap) [facility] Start: 02-24-2025 Influenza vaccination Influenza Vacc ine [facility] Start: 01-10-2025 Adult BMI Screening Adult BMI Screen ing [facility] Start: 01-10-2025 Tobacco Screening Tobacco Screening [facility] Start: 12-25-2024 End: 12-25-2024 Patient encounter procedure 12/25/2024 2:00 PM EDT Office Visit [facility] [address] [place] [address] Lamont Guillory DO [address] [place] [address] [facility] Start: 12-06-2024 Adult BMI Screening Adult BMI Screen ing [facility] Start: 12-06-2024 Tobacco Screening Tobacco Screening [facility] Start: 12-05-2024 End: 12-05-2024 Patient encounter procedure 12/05/2024 1:15 PM EDT Office Visit [facility] [address] [place] [address] Saul Huerta, PA [address] [place] [address] [facility] Start: 12-02-2024 End: 12-02-2024 Patient encounter procedure 12/02/2024 10:00 AM EDT Office Visit [facility] [address] [place] [address] Saul Huerta, PA [address] [place] [address] [facility] Start: 11-14-2024 End: 11-14-2024 ambulatory 11/14/2024 11:00 AM EDT Evaluation [facility] [address] [place] [address] Dinorah Sylvester, PT [address] [place] [address] [facility] Start: 11-08-2024 Adult BMI Screening Adult BMI Screen ing [facility] Start: 11-08-2024 Tobacco Screening Tobacco Screening [facility] Start: 11-05-2024 End: 11-05-2025 Basic metabolic 1998 panel - Serum or Plasma Basic metabolic panel Lab Routine Pre-op examination Expected: 11/05/2024 (Approximate), Expires: 11/05/2025 [facility] Work Phone: Comment on above: Expected: 11/05/2024 (Approximate), Expires: 11/05/2025 Start: 11-05-2024 End: 11-05-2024 Patient encounter procedure 11/05/2024 2:00 PM EDT Office Visit [facility] [address] [place] [id number] Saul Huerta, PA [address] [facility] [address] [place] [address] Pre-op examination (Primary Dx) [facility] Comment on above: Pre-op examination ( Primary Dx) Start: 09-18-2024 End: 09-18-2024 Patient encounter procedure 09/18/2024 1:30 PM EDT Office Visit [facility] [address] [place] [id number] Jr. Oliver Delacruz, DO [address] [facility] [address] [place] [address] [facility] Start: 08-28-2024 End: 08-28-2024 Patient encounter procedure 08/28/2024 11:15 AM EST Office Visit [facility] [address] [place] [address] Jr. Oliver Delacruz, DO [address] [facility] [address] [place] [address] Arrived [facility] Comment on above: Arrived Start: 08-15-2024 End: 08-15-2025 MR Knee - left WO contrast MR knee left wo IV contrast Imaging Routine Internal derangement of left knee Expected: 08/15/2024, Expires: 08/15/2025 [facility] Work Phone: Comment on above: Expected: 08/15/2024 , Expires: 08/15/2025 Start: 07-25-2024 End: 07-25-2024 Patient encounter procedure 07/25/2024 1:15 PM EST Office Visit [facility] [address] [place] [address] Saul Huerta PA [address] [facility] [address] [place] [address] [facility] ORTHO Start: 07-09-2024 End: 07-09-2024 Patient encounter procedure 07/09/2024 11:00 AM EST Office Visit [facility] [address] [place] [address] Saul Huerta PA [address] [facility] [address] [place] [address] [facility] Start: 06-27-2024 End: 06-27-2024 Patient encounter procedure 06/27/2024 11:30 AM EST Office Visit [facility] [address] [address] [place] [address] Saul Huerta PA [address] [facility] [address] [place] [address] Acute pain of right knee (Primary Dx); Acute pain of left knee [facility] Comment on above: Acute pain of right knee (Primary Dx); Acute pain of left knee Start: 04-11-2024 End: 04-11-2024 Patient encounter procedure 04/11/2024 1:30 PM EDT Office Visit [facility] [place] [phone] Berta Khalil DO [address] [place] [address] [facility] Start: 02-25-2024 COVID-19 Vaccine ( season) COVID-19 Vaccine () [facility] Start: 02-25-2024 Influenza vaccination Influenza Vacc ine [facility] Start: 01-11-2024 End: 01-10-2025 Bacteria identified in Urine by Culture Urine Culture Microbiology Routine Burning with urination Expected: 01/11/2024 (Approximate), Expires: 01/10/2025 [facility] Comment on above: Expected: 01/11/2024 (Approximate), Expires: 01/10/2025 Start: 01-11-2024 End: 01-10-2025 Vaginitis Panel PCR Vaginitis Panel PCR Microbiology Routine Vaginal itching Vaginal irritation Mauri glabrata infection Expected: 01/11/2024 (Approximate), Expires: 01/10/2025 [facility] Work Phone: Comment on above: Expected: 01/11/2024 (Approximate), Expires: 01/10/2025 Start: 01-11-2024 End: 01-11-2024 Patient encounter procedure 01/11/2024 1:30 PM EDT Office Visit [facility] [address] [place] [phone] Berta Khalil DO [address] [place] [address] [facility] Start: 12-07-2023 End: 12-07-2023 Patient encounter procedure 12/07/2023 1:30 PM EDT Procedure visit [facility] [address] [place] [phone] Berta Khalil DO [address] [place] [address] [facility] Start: 11-14-2023 Fall Risk Screening Fall Risk Screen ing [facility] Start: 02-24-2023 COVID-19 Vaccine ( season) COVID-19 Vaccine ( season) [facility] Start: 2008 Administration of varicella zoster vaccine Zoster (Shingles) Vaccine (1 of 2) [facility] Start: 1977 DTaP,Tdap and Td Vaccines (1 - Tdap) DTaP,Tdap and Td Vaccines (1 - Tdap) [facility] Start: 1976 Diabetic foot examination Diabetic Foot Exam [facility] Start: 1970 Depression Screening Depression Scre ening [facility] Start: 1958 Glaucoma screening Diabetic Op hthalmology Exam [facility] Start: 1958 Medicare Annual Well ness Visit Medicare Annual Wellness Visit [facility] Start: 1958 Statin Use: Diabetic Statin Use: Jessica betic [facility] End: 11-08-2024 Bacteria identified in Urine by Culture Urine culture Microbiology Routine Burning with urination 1 Occurrences starting 11/09/2023 until 11/08/2024 [employer] Work Phone: Comment on above: 1 Occurrences starti ng 11/09/2023 until 11/08/2024 Bacteria identified in Urine by Culture Urine culture Microbiology Routine Burning with urination 11/09/2023 8:35 PM [facility]T [facility] End: 12-06-2024 Bacteria identified in Urine by Culture Urine culture Microbiology Routine UTI (urinary tract infection), bacterial 1 Occurrences starting 12/07/2023 until 12/06/2024 [employer] Work Phone: Comment on above: 1 Occurrences starti ng 12/07/2023 until 12/06/2024 End: 01-23-2025 Bacteria identified in Urine by Culture Urine Culture Microbiology Routine Dyspareunia in female Dysuria 1 Occurrences starting 01/24/2024 until 01/23/2025 [employer] Work Phone: Comment on above: 1 Occurrences starti ng 01/24/2024 until 01/23/2025 Bacteria identified in Urine by Culture Urine Culture Microbiology Routine Dyspareunia in female Dysuria 01/24/2024 3:58 PM EDT [facility] Comprehensive metabo lic 2000 panel - Serum or Plasma [facility] Glucose measurement estimated from glycated hemoglobin [facility] Hemoglobin A1c measurement [facility] MG Breast - bilatera l Screening [facility] Microalbumin [Mass/volume] in Urine [facility] End: 12-06-2024 Surgical Pathology Surgical Pathology Pathology and Cytology Routine Vaginal irritation Lichen sclerosus 1 Occurrences starting 12/07/2023 until 12/06/2024 [facility] Comment on above: 1 Occurrences starti ng 12/07/2023 until 12/06/2024 End: 12-06-2024 Vaginitis Panel PCR Vaginitis Panel PCR Microbiology Routine Vaginal irritation 1 Occurrences starting 12/07/2023 until 12/06/2024 [facility] Comment on above: 1 Occurrences starti ng 12/07/2023 until 12/06/2024 XR Chest 2 Views [facility] Immunizations Immunization Date Immunization Notes Care Provider Fa cility 10-02-2020 SARS-CoV-2 (COVID-19 ) mRNA-1273 vaccine Richard Vergara [facility] Comment on above: Result Comment: 2024: [id number] 09-04-2020 SARS-CoV-2 (COVID-19 ) mRNA-1273 vaccine Richard Vergara [facility] Comment on above: Result Comment: 2024: [id number] 01-15-2019 diphtheria, tetanus toxoids and acellular pertussis vaccine, unspecified formulation Donnie Hebert Other [facility] 03-30-2018 influenza virus vaccine, split virus (incl. purified surface antigen) Donnie Hebert Other [employer] Other 03-30-2018 influenza virus vaccine, unspecified formulation Berta Khalil DO Work Phone: [facility] 04-12-2013 pneumococcal polysaccharide vaccine, 23 valent Donnie Hebert Other [facility] 04-12-2013 tetanus and diphther ia toxoids, adsorbed, preservative free, for adult use (5 Lf of tetanus toxoid and 2 Lf of diphtheria toxoid) Donnie Hebert Other [facility] 03-14-2012 tetanus and diphther ia toxoids, adsorbed, preservative free, for adult use (5 Lf of tetanus toxoid and 2 Lf of diphtheria toxoid) Donnie Hebert Other [facility] pneumococcal Conjuga te, unspecified formulation; Translations: [Need for prophylactic vaccination against Streptococcus pneumoniae (pneumococcus)] Donnie Hebert Other [employer] Other Payers Date Payer Category Payer Managed Care Other (unspecified) [facility] [id number] 2023 Medicare [id number] 2023 Private Health Insurance [id number] 2023 Unknown [facility] [id number] 2023-Present [phone] [address] [place] [address] [id number]. 2.7.3.299413.315 2023 Medicare [id number] 2023 Unknown [id number] 2023 Unknown [id number] 2016 Private Health Insurance [facility] [id number] Self-pay [id number] 1959 Unknown [id number] 1958 Unknown [id number] 2.16.840.1.488745.3.579. 2.593 1958 Unknown [id number] 2.840.1.688923.3.579. 2.1285 1958 Unknown [id number] 2.840.1.736213.3.579. 2.1285 1958 Unknown [id number] 2..840.1.131949.3.579. 2.1285 1958 Unknown [id number] 2..840.1.604696.3.579. 2.1285 1958 Unknown [id number] 2..840.1.631638.3.579. 2.128 1958 Unknown [id number] 2.16.840.1.342055.3.579. 2.128 1958 Unknown [id number] 2.16.840.1.243641.3.579. 2.1285 1958 Unknown [id number] 2.16.840.1.260130.3.579. 2.1259 1958 Unknown [id number] 2.16840.1.008766.3.579. 2.1259 1958 Unknown [id number] 2.16.840.1.633761.3.579. 2.1258 1958 Unknown [id number] 2.16.840.1.915283.3.579. 2.1258 1958 Unknown [id number] 2.16.840.1.686953.3.579. 2.1258 1958 Unknown [id number] 2.16840.1.997581.3.579. 2.1258 1958 Unknown [id number] 2.840.1.590169.3.579. 2.1258 1958 Unknown [id number] 2.840.1.300610.3.579. 2.1258 1958 Unknown [id number] 2.840.1.826667.3.579. 2.1285 1958 Unknown [id number] 2.840.1.878310.3.579. 2.1285 1958 Unknown [id number] 2.840.1.193736.3.579. 2.727 1958 Unknown [id number] 2.840.1.474905.3.579. 2.727 Blue Cross Blue Shield [id number] 2.840.1.650475.19 Unknown [place] BC/BS [id number] Unknown [id number] 2.16840.1.658102.3.579. 2.593 Unknown [id number] 2.16840.1.407525.3.579. 2.593 Unknown [id number] 2.16840.1.605019.3.579. 2.531 Unknown [id number] 2.840.1.171259.3.579. 2.531 Social History Date Type Detail Facility Start: 05-16-2019 End: 12-07-2024 Tobacco smoking status NHIS Never smoked tobacco (finding) [facility] Start: 1960 Sex Assigned At Female [facility] Start: 11-16-2023 End: 11-05-2024 Sex Assigned At [employer] Other Start: 04-11-2013 End: 05-15-2024 Sex Female (finding) [facility] Start: 11-09-2023 End: 11-16-2023 Tobacco use and exposure Smokeless tobacco non-user [facility] Start: 11-16-2023 End: 11-05-2024 History of Social function [facility] Start: 1960 Sex assigned at Not on file [facility] Start: 11-09-2023 End: 01-11-2024 Alcoholic beverage intake Current non-drinker of alcohol (finding) [facility] Childcare Unknown [facility] Start: 11-05-2024 Alcoholic beverage intake Current drinker of alcohol (finding) [facility] Start: 11-05-2024 Alcohol Comment Occationally [facility] Sexual Orientation [facility] Medical Equipment Procedure Code Equipment Code Equipment Origin al Text Equipment Identifier Dates Pen Needle, Diab etic (Easy Comfort Pen [place]) 31 gauge x 5/16 needle Start: 03-07-2024 Pen Needle, Diab etic (Easy Comfort Pen [place]) 31 gauge x 5/16 needle Start: 03-07-2024 End: 03-07-2024 Pen Needle, Diab etic (Easy Comfort Pen [place]) 31 gauge x 5/16 needle Start: 03-07-2024 Pen Needle, Diab etic (Easy Comfort Pen [place]) 31 gauge x 5/16 needle Start: 03-07-2024 End: 03-07-2024 Pen Needle, Diab etic (Easy Comfort Pen [place]) 31 gauge x 5/16 needle Start: 03-07-2024 Pen Needle, Diab etic (Easy Comfort Pen [place]) 31 gauge x 5/16 needle Start: 03-07-2024 End: 03-07-2024 Pen Needle, Diab etic (Easy Comfort Pen [place]) 31 gauge x 5/16 needle Start: 03-07-2024 Pen Needle, Diab etic (Easy Comfort Pen [place]) 31 gauge x 5/16 needle Start: 03-07-2024 End: 03-07-2024 Pen Needle, Diab etic (Easy Comfort Pen [place]) 31 gauge x 5/16 needle Start: 03-07-2024 Pen Needle, Diab etic (Easy Comfort Pen [place]) 31 gauge x 5/16 needle Start: 03-07-2024 End: 03-07-2024 Clinical Notes 07-14-2022 to 12-05-2024 Telephone Encounter - Bradley Pereyra NP - 11/15/2024 7:12 AM EDTTelephone Encounter - Bradley Pereyra NP - 11/15/2024 7:12 AM EDTTelephone Encounter - Savi Mosqueda - 11/06/2024 1:23 PM EDT Note Date & Type Note Facility 12-05-2024 Hospital Discharge instructions Patient Education 12/05/2024 14:44:19 Upper Respiratory Infection, Adult Upper Respiratory Infection, Adult An upper respiratory infection (URI) is a common viral infection of the nose, throat, and upper air passages that lead to the lungs. The most common type of URI is the common cold. URIs usually get better on their own, without medical treatment. What are the causes? A URI is caused by a virus. You may catch a virus by: Breathing in droplets from an infected person's cough or sneeze. Touching something that has been exposed to the virus (is contaminated) and then touching your mouth, nose, or eyes. What increases the risk? You are more likely to get a URI if: You are very young or very old. You have close contact with others, such as at work, school, or a health care facility. You smoke. You have long-term (chronic) heart or lung disease. You have a weakened disease-fighting system (immune system). You have nasal allergies or asthma. You are experiencing a lot of stress. You have poor nutrition. What are the signs or symptoms? A URI usually involves some of the following symptoms: Runny or stuffy (congested) nose. Cough. Sneezing. Sore throat. Headache. Fatigue. Fever. Loss of appetite. Pain in your forehead, behind your eyes, and over your cheekbones (sinus pain). Muscle aches. Redness or irritation of the eyes. Pressure in the ears or face. How [...] usually get better on their own within 7 10 days. Medicines cannot cure URIs, but your health care provider may recommend certain medicines to help relieve symptoms, such as: Qinb-hsu-onygjky cold medicines. Cough suppressants. Coughing is a type of defense against infection that helps to clear the respiratory system, so take these medicines only as recommended by your health care provider. Fever-reducing medicines. Follow these instructions at home: Activity Rest as needed. If you have a fever, stay home from work or school until your fever is gone or until your health care provider says your URI cannot spread to other people (is no longer contagious). Your health care provider may have you wear a face mask to prevent your infection from spreading. Relieving symptoms Gargle with a mixture of salt and water 3 4 times a day or as needed. To make salt water, completely dissolve 1 tsp (3 6 g) of salt in 1 cup (237 mL) of warm water. Use a cool-mist humidifier to add moisture to the air. This can help you breathe more easily. Eating and drinking Drink enough fluid to keep your urine pale yellow. Eat soups and other clear broths. General instructions Take tpfu-uvi-yrmhwhe and prescription medicines only as told by your health care provider. These include cold medicines, fever reducers, and cough suppressants. Do not use any products that contain nicotine or tobacco. These products include cigarettes, chewing tobacco, and vaping devices, such as e-cigarettes. If you need help quitting, ask your health care provider. Stay away from secondhand smoke. Stay up to date on all immunizations, including the yearly (annual) flu vaccine. Keep all follow-up visits. This is important. How to prevent the spread of infection to others URIs can be contagious. To prevent the infection from spreading: Wash your hands with soap and water for at least 20 seconds. If soap and water are not available, use hand cinder dump crane operator. Avoid touching your mouth, face, eyes, or nose. Cough or sneeze into a tissue or your sleeve or elbow instead of into your hand or into the air. Contact a health care provider if: You are getting worse instead of better. You have a fever or chills. Your mucus is brown or red. You have yellow or brown discharge coming from your nose. You have pain in your face, especially when you bend forward. You have swollen neck glands. You have pain while swallowing. You have white areas in the back of your throat. Get help right away if: You have shortness of breath that gets worse. You have severe or persistent: ?Headache. ?Ear pain. ?Sinus pain. ?Chest pain. You have chronic lung disease along with any of the following: ?Making high-pitched whistling sounds when you breathe, most often when you breathe out (wheezing). ?Prolonged cough (more than 14 days). ?Coughing up blood. ?A change in your usual mucus. You have a stiff neck. You have changes in your: ?Vision. ?Hearing. ?Thinking. ?Mood. These symptoms may be an emergency. Get help right away. Call 911. Do not wait to see if the symptoms will go away. Do not drive yourself to the hospital. Summary An upper respiratory infection (URI) is a common infection of the nose, throat, and upper air passages that lead to the lungs. A URI is caused by a virus. URIs usually get better on their own within 7 10 days. Medicines cannot cure URIs, but your health care provider may recommend certain medicines to help relieve symptoms. This information is not intended to replace advice given to you by your health care provider. Make sure you discuss any questions you have with your health care provider. Document Revised: 01/12/2022 Document Reviewed: 01/12/2022 [email or web address] Patient Education 2023 [employer]. Follow Up Care 12/05/2024 12:22:45 With:DONNIE HEBERT DO Address: [address] [place] [address]- When: Unknown With:Jai MAX, TODD Hinojosa Address: [phone] When: Unknown [facility] 12-05-2024 Note Patient Education Infectious Disease Upper Respiratory Infection, Adult An upper respiratory infection (URI) is a common viral infection of the nose, throat, and upper air passages that lead to the lungs. The most [...] usually get better on their own within 7?10 days. Medicines cannot cure URIs, but your health care provider may recommend certain medicines to help relieve symptoms, such as: ??? Xpiy-qxg-saqfucy cold medicines. ??? Cough suppressants. Coughing is [...] with a mixture of salt and water 3?4 times a day or as needed. To make salt water, completely dissolve ??1 tsp (3?6 g) of salt in 1 cup (237 mL) of warm water. ??? Use a cool-mist humidifier to add moisture to the air. This can help you breathe more easily. Eating and drinking ??? Drink enough fluid to keep your urine pale yellow. ??? Eat soups and other clear broths. General instructions ??? Take jpdo-afj-qoocqfb and prescription medicines only as told by [...] and water are not available, use hand cinder dump crane operator. ??? Avoid touching your mouth, face, eyes, [...] worse. ??? You have severe or persistent: ? Headache. ? Ear pain. ? Sinus pain. ? Chest pain. ??? You have chronic lung disease along with any of the following: ? Making high-pitched whistling sounds when you breathe, most often when you breathe out (wheezing). ? Prolonged cough (more than 14 days). ? Coughing up blood. ? A change in your usual mucus. ??? You have a stiff neck. ? (more content not included)... [facility] 11-15-2024 Telephone encounter Note Post op pain rx. PDMP reviewed [facility] 11-15-2024 Miscellaneous Notes Post op pain rx. PDMP reviewed documented in this encounter [facility] 11-06-2024 Telephone encounter Note She contacted and we scheduled Prehab 11/14 w/ Dionrah Sylvester PT. [facility] 11-06-2024 Miscellaneous Notes She contacted and we scheduled Prehab 11/14 w/ Dinorah Sylvester PT. Tried to contact to offer PT Prehab for LT knee scope @ [place]; dos 11/19. Requested call back augusto. documented in this encounter [facility] 11-06-2024 Telephone encounter Note Tried to contact to offer PT Prehab for LT knee scope @ [place]; dos 11/19. Requested call back augusto. [facility] 11-05-2024 History of Present illness Narrative Images from the original note were not included. GENERAL HISTORY AND PHYSICAL: NAME: Patricia Plaza : 1960 HISTORY OF PRESENT ILLNESS: Patricia Plaza is an 63 y.o. @ female. Here for surgery instructions left knee scope November 19 @ [facility]. PAST MEDICAL HISTORY: Past Medical History: Diagnosis Date Acid reflux Active asthma (CMS/HCC) Depression (CMS/HCC) Diabetes type 2 Hypercalcemia Hypertension (CMS/HCC) Lichen sclerosus Obesity PAST SURGICAL HISTORY: Past Surgical History: Procedure Laterality Date CHOLECYSTECTOMY HYSTERECTOMY KNEE ARTHROSCOPY W/ DEBRIDEMENT Left OTHER SURGICAL HISTORY Right HOLE IN ARM cadavar bone placed - Bondra SHOULDER ARTHROSCOPY Left BONE SPUR REMOVED SOCIAL HISTORY: Social History Occupational History Not on file Tobacco Use Smoking status: Never Smokeless tobacco: Never Substance and Sexual Activity Alcohol use: Yes Comment: Occationally Drug use: Never Sexual activity: Not on file ALLERGIES: Allergies Allergen Reactions Morphine Hives Stroke like symptoms Oxycodone-Acetaminophen Itching Prednisone Swelling ANKLE SWELLING Codeine Hives, Itching and Rash MEDICATIONS: Current Outpatient Medications Medication Instructions atorvastatin (Lipitor) 40 MG tablet Every 24 hours buPROPion XL (WELLBUTRIN XL) 150 mg, Daily clobetasol (Temovate) 0.05 % cream clonazePAM (KLONOPIN) 0.5 mg, 2 times daily PRN escitalopram (Lexapro) 10 MG tablet famotidine (PEPCID) 20 mg, Daily RT Farxiga 10 MG insulin glargine (LANTUS) 35 Units, 2 times daily losartan (COZAAR) 50 mg, Daily RT REVIEW OF SYSTEMS: Review of Systems Constitutional: Negative for fatigue, fever and unexpected weight change. Eyes: Negative for redness and visual disturbance. Respiratory: Positive for cough (non productive for 4 months, seeing PCP). Gastrointestinal: Negative for abdominal pain. Denies Indigestion Musculoskeletal: See note: Skin: Negative for color change and rash. Neurological: Negative for light-headedness and numbness. Vitals: Body mass index is 34.87 kg/m . PHYSICAL EXAM: Physical Exam Constitutional: General: She is not in acute distress. Appearance: Normal appearance. HENT: Head: Normocephalic and atraumatic. Right Ear: External ear normal. Left Ear: External ear normal. Nose: Nose normal. No rhinorrhea. Mouth/Throat: Mouth: Mucous membranes are moist. Pharynx: No posterior oropharyngeal erythema. Eyes: Extraocular Movements: Extraocular movements intact. Conjunctiva/sclera: Conjunctivae normal. Cardiovascular: Rate and Rhythm: Normal rate and regular rhythm. Pulses: Normal pulses. Heart sounds: No murmur heard. Pulmonary: Effort: Pulmonary effort is normal. No respiratory distress. Breath sounds: Normal breath sounds. No wheezing or rhonchi. Abdominal: Palpations: Abdomen is soft. Tenderness: There is no abdominal tenderness. Musculoskeletal: Cervical back: Normal range of motion and neck supple. Lymphadenopathy: Cervical: No cervical adenopathy. Skin: General: Skin is warm and dry. Findings: No erythema or rash. Neurological: General: No focal deficit present. Mental Status: She is alert and oriented to person, place, and time. Psychiatric: Mood and Affect: Mood normal. Behavior: Behavior normal. Orders Placed This Encounter Procedures Basic metabolic panel Standing Status: Future Number of Occurrences: 1 Expected Date: 11/05/2024 Expiration Date: 11/05/2025 Print requisition?: No ASSESSMENT: ICD-10-CM 1. Pre-op examination Z01.818 Basic metabolic panel Basic metabolic panel PLAN: This patient presents for preadmission testing for upcoming surgery. Complete history with medical, surgery, and current allergy and medication list obtained. Consent for surgery signed and witnessed after verbal consent to perform surgery received. All questions answered and proposed surgery scheduled. SURGERY INSTRUCTIONS October @ [facility] PRE CERT APPROVED MEDICARE HAS WALKER PRE HAB SENT TO [facility] ; HAS NEVER USED WALKER Follow up in about 27 days (around 12/02/2024) for Post-Op November 9ht @ 10:00 [place] with Rob Huerta. documented in this encounter [facility] 08-28-2024 History of Present illness Narrative Images from the original note were not included. HISTORY OF PRESENT ILLNESS: EST PT Patricia Plaza is an 63 y.o. @ female. (L) KNEE (EST PT) (LAST APPT W/ ROB) - RECHECK (L) KNEE ; S/P MRI 08/26/24 ; HERE TO DISCUSS OPTIONS XRAYS, STANDING AP 06/04/24 IN [facility], 03/06/19 @ [facility] 08/26/24 [facility] MRI, 03/11/19 @ [facility] S/P PREDNISONE 06/04/24 S/P CORTISONE INJ 06/27/24, 04/09/18 PREVIOUS PT ; MAR 2018 / SUMMER 2018 NO PAIN MGMT L>R KNEE DISCOMFORT @LAST VISIT. NOTES SHE HAS BEEN ACTIVE WITH HER 'S FALLS WITHIN THE LAST FEW MONTHS. ANTEROMEDIAL AND POSTERIOR DISCOMFORT. PAIN WORSENS WITH AMBULATION / PROLONGED STANDING. WAKING HS WITH PAIN. FULL ROM - PAINFUL. INTERMITTENT INSTABILITY / WEAKNESS. DENIES BUCKLING / GRINDING / POPPING. DENIES ICING / HEATING. ADMITS ELEVATING. BAR MESSINA. H/O INJURY : LATE 04/2024 ; STATES SHE HAD PAIN AFTER TRYING TO GET HER OFF THE FLOOR AFTER FALLING OUT OF BED (R) KNEE (EST PT) (LAST APPT W/ ROB) - RECHECK (R) KNEE ; STARTS AQUATIC PT 09/05/24 XRAYS, 06/04/24 IN [facility], 02/06/17 @ [facility] S/P PREDNISONE 06/04/24 S/P CORTISONE INJ 12/28/16, 12/21/17 S/P SYNVISC INJ 03/19/18 PREVIOUS (R) KNEE SCOPE 03/28/17 (DR. DELACRUZ) BEGINS AQUATIC PT 09/05/24 NO PAIN MGMT STARTS AQUATIC PT THIS MONTH. NOTES INTERMITTENT BUCKLING SINCE LAST VISIT. NOTES SHE HAS BEEN ACTIVE WITH HER 'S FALLS WITHIN THE LAST FEW MONTHS. CONTINUES TO HAVE OCCASIONAL DISCOMFORT MEDIALLY, AT TIMES POSTERIOR. FULL ROM. INTERMITTENT WEAKNESS / INSTABILITY. DENIES POPPING / GRINDING. DENIES ICING / HEATING. ADMITS ELEVATING. BAR MESSINA. H/O INJURY : LATE 04/2024 ; STATES SHE HAD PAIN AFTER TRYING TO GET HER OFF THE FLOOR AFTER FALLING OUT OF BED ALLERGIES: Allergies Allergen Reactions Morphine Hives Stroke like symptoms Oxycodone-Acetaminophen Itching Prednisone Swelling ANKLE SWELLING Codeine Hives, Itching and Rash HOME MEDICATIONS: Current Outpatient Medications Medication Instructions atorvastatin (Lipitor) 40 MG tablet Every 24 hours buPROPion XL (WELLBUTRIN XL) 150 mg, Daily clobetasol (Temovate) 0.05 % cream APPLY TO AFFECTED AREA TOPICALLY IN THE MORNING AND AT BEDTIME clonazePAM (KLONOPIN) 0.5 mg, 2 times daily PRN escitalopram (Lexapro) 10 MG tablet TAKE 1 TABLET BY MOUTH EVERY DAY FOR 90 DAYS famotidine (PEPCID) 20 mg, Daily RT Farxiga 10 MG insulin glargine (LANTUS) 35 Units, 2 times daily losartan (COZAAR) 50 mg, Daily RT Victoza 18 MG/3ML injection INJECT 1.8MG SUBCUTANEOUSLY ONCE DAILY PHYSICAL EXAM: Knee Musculoskeletal Exam Gait Antalgic: left Inspection Leg length disparity: no discrepancy Right Erythema: none Effusion: mild Edema: none Ecchymosis: none Deformity: none Alignment: normal Left Erythema: none Effusion: mild Edema: none Ecchymosis: none Deformity: none Alignment: normal Previous incision: arthroscopic portals Incision: well-healed Palpation Right Right knee palpation is unremarkable. Increased warmth: none Masses: none Crepitus: patellofemoral Tenderness: present Patella: moderate Left Increased warmth: none Masses: none Crepitus: patellofemoral Tenderness: present Medial joint line: moderate Patella: moderate Range of Motion Right Right knee range of motion is normal and full. Active extension: 0 Passive extension: 0 Active flexion: 120 Passive flexion: 120 Left Left knee range of motion is normal and full. Active extension: 5 Passive extension: 0 Active flexion: 115 Passive flexion: 120 Range of motion additional comments: + PAIN ON TERMINAL FLEXION AND EXTENSION worse in left medial knee. Strength Right Right knee strength is normal. Extension: 5/5. Flexion: 5/5. Left Extension: 5/5. Extension is affected by pain. Flexion: 5/5. Flexion is affected by pain. Instability Right Instability signs: none - stable Varus stress grade: normal Valgus stress grade: normal Anterior drawer: normal Medial Yue test: negative Lateral Yue test: negative Left Instability signs: none - stable Varus stress grade: normal Valgus stress grade: normal Anterior drawer: normal Medial Yue test: positive Lateral Yue test: negative Neurovascular Right Right knee neurovascular exam is normal. Pulses - PT: normal Posterior tibial: 2+ Capillary refill: warm and well-perfused Left Left knee neurovascular exam is normal. Pulses - PT: normal Posterior tibial: 2+ Capillary refill: warm and well-perfused Special Signs Right Right knee special signs are normal. Straight leg raise: normal Patellar apprehension: moderate Left Left knee special signs are normal. Patellar apprehension: none General Constitutional: appears stated age Labored breathing: no Psychiatric: normal mood and affect Neurological: alert Skin: intact Lymphadenopathy: none Vitals: There is no height or weight on file to calculate BMI. Tobacco Use: Low Risk (08/28/2024) Patient History Smoking Tobacco Use: Never Smokeless Tobacco Use: Never Passive Exposure: Not on file Alcohol Use: Not on file IMAGING: Procedures No orders of the defined types were placed in this encounter. ASSESSMENT: ICD-10-CM 1. Acute pain of left knee M25.562 2. Internal derangement of left knee M23.92 3. Arthritis of left knee M17.12 PLAN: We have discussed her case with her at length including both surgical and nonsurgical treatment options and risks and benefits associated with both. The patient requests surgical intervention in form of a diagnostic and operative arthroscopy knowing full well that there is not much we can do for her arthritic damage we would only be going in to take care of basically the medial meniscus tear. She refuses a total knee arthroplasty and is requesting a arthroscopy on her left knee. We'll see her back in surgery. Patient understands the risks and benefits of such surgery. We have discussed both surgical and nonsurgical treatment options with the patient and the risks and benefits associated with both. The patient is requesting surgical intervention because the patient's symptoms were affecting the patient's activities of daily living and ability to sleep. The patient's symptoms were unresponsive to outpatient treatment options. After lengthy discussions involving but not limited to both surgical and nonsurgical treatment options the patient has requested surgical intervention and we will see them back on the day of surgery. The patient understands the risks of said treatment. Questions answered in laymen terms at the bedside. The diagnosis, home exercise plan and any ongoing restrictions/ recommendations reviewed. If unable to be reached in office, I recommend evaluation at nearest Emergency Room if any symptoms worsened or new symptoms develop for requiring urgent evaluation. documented in this encounter [facility] 08-15-2024 History of Present illness Narrative Images from the original note were not included. HISTORY OF PRESENT ILLNESS: EST PT Patricia Plaza is an 63 y.o. @ female. (L) KNEE (EST PT) - RECHECK (L) KNEE ; S/P CORTISONE INJ 06/27/24 (7 WKS) XRAYS, STANDING AP 06/04/24 IN [facility] XRAYS, 03/06/19 @ [facility] MRI, 03/11/19 @ [facility] S/P PREDNISONE 06/04/24 S/P CORTISONE INJ 06/27/24, 04/09/18 PREVIOUS PT ; MAR 2018 / SUMMER 2018 L>R KNEE DISCOMFORT @LAST VISIT. CORTISONE INJ - RELIEF FOR 3 WKS. NOTES SHE HAS BEEN ACTIVE WITH HER 'S FALLS WITHIN THE LAST FEW MONTHS. ANTEROMEDIAL AND POSTERIOR DISCOMFORT. PAIN WORSENS WITH AMBULATION / STANDING. WAKING HS WITH PAIN. FULL ROM - LIMITED. INTERMITTENT INSTABILITY / WEAKNESS. DENIES BUCKLING / GRINDING / POPPING. DENIES ICING / HEATING. ADMITS ELEVATING. BAR MESSINA. H/O INJURY : LATE 04/2024 ; STATES SHE HAD PAIN AFTER TRYING TO GET HER OFF THE FLOOR AFTER FALLING OUT OF BED (R) KNEE (EST PT) - RECHECK (R) KNEE ; S/P PREDNISONE 06/04/24 (10 WKS, 2 DAYS) - DISCONTINUED D/T ANKLE SWELLING ; INTERMITTENT BUCKLING SINCE LAST VISIT (06/27/24) XRAYS, 06/04/24 [facility], 02/06/17 @ [facility] S/P PREDNISONE 06/04/24 S/P CORTISONE INJ 12/28/16, 12/21/17 S/P SYNVISC INJ 03/19/18 PREVIOUS (R) KNEE SCOPE 03/28/17 (DR. DELACRUZ) D/C PREDNISONE AFTER 5 DAYS D/T ANKLE SWELLING. NOTES INTERMITTENT BUCKLING SINCE LAST VISIT. NOTES SHE HAS BEEN ACTIVE WITH HER 'S FALLS WITHIN THE LAST FEW MONTHS. CONTINUES TO HAVE OCCASIONAL DISCOMFORT MEDIALLY, AT TIMES POSTERIOR. FULL ROM. NOTES WEAKNESS / INSTABILITY. DENIES POPPING / GRINDING. DENIES ICING / HEATING. ELEVATING. ALEVE PRN. H/O INJURY : LATE 04/2024 ; STATES SHE HAD PAIN AFTER TRYING TO GET HER OFF THE FLOOR AFTER FALLING OUT OF BED ALLERGIES: Allergies Allergen Reactions Morphine Hives Stroke like symptoms Oxycodone-Acetaminophen Itching Prednisone Swelling ANKLE SWELLING Codeine Hives, Itching and Rash HOME MEDICATIONS: Current Outpatient Medications Medication Instructions atorvastatin (Lipitor) 40 MG tablet Every 24 hours buPROPion XL (WELLBUTRIN XL) 150 mg, Daily clobetasol (Temovate) 0.05 % cream APPLY TO AFFECTED AREA TOPICALLY IN THE MORNING AND AT BEDTIME clonazePAM (KLONOPIN) 0.5 mg, 2 times daily PRN escitalopram (Lexapro) 10 MG tablet TAKE 1 TABLET BY MOUTH EVERY DAY FOR 90 DAYS famotidine (PEPCID) 20 mg, Daily RT Farxiga 10 MG insulin glargine (LANTUS) 35 Units, 2 times daily losartan (COZAAR) 50 mg, Daily RT Victoza 18 MG/3ML injection INJECT 1.8MG SUBCUTANEOUSLY ONCE DAILY PHYSICAL EXAM: Knee Musculoskeletal Exam Gait Gait is normal. Inspection Leg length disparity: no discrepancy Right Erythema: none Effusion: mild Edema: none Ecchymosis: none Deformity: none Alignment: normal Left Erythema: none Effusion: mild Edema: none Ecchymosis: none Deformity: none Alignment: normal Palpation Right Right knee palpation is unremarkable. Increased warmth: none Masses: none Crepitus: patellofemoral Tenderness: present Patella: moderate Left Increased warmth: none Masses: none Crepitus: patellofemoral Tenderness: present Medial joint line: moderate Patella: moderate Range of Motion Right Right knee range of motion is normal and full. Active extension: 0 Passive extension: 0 Active flexion: 120 Passive flexion: 120 Left Left knee range of motion is normal and full. Active extension: 0 Passive extension: 0 Active flexion: 120 Passive flexion: 120 Range of motion additional comments: + PAIN ON TERMINAL FLEXION AND EXTENSION worse in left medial knee. Strength Right Right knee strength is normal. Extension: 5/5. Flexion: 5/5. Left Extension: 5/5. Extension is affected by pain. Flexion: 5/5. Flexion is affected by pain. Instability Right Instability signs: none - stable Varus stress grade: normal Valgus stress grade: normal Anterior drawer: normal Medial Yue test: negative Lateral Yue test: negative Left Instability signs: none - stable Varus stress grade: normal Valgus stress grade: normal Anterior drawer: normal Medial Yue test: positive Lateral Yue test: negative Neurovascular Right Right knee neurovascular exam is normal. Pulses - PT: normal Posterior tibial: 2+ Capillary refill: warm and well-perfused Left Left knee neurovascular exam is normal. Pulses - PT: normal Posterior tibial: 2+ Capillary refill: warm and well-perfused Special Signs Right Right knee special signs are normal. Straight leg raise: normal Patellar apprehension: moderate Left Left knee special signs are normal. Patellar apprehension: none General Constitutional: appears stated age Labored breathing: no Psychiatric: normal mood and affect Neurological: alert Skin: intact Lymphadenopathy: none Vitals: There is no height or weight on file to calculate BMI. Tobacco Use: Low Risk (08/15/2024) Patient History Smoking Tobacco Use: Never Smokeless Tobacco Use: Never Passive Exposure: Not on file Alcohol Use: Not on file IMAGING: Procedures Orders Placed This Encounter Procedures MR knee left wo IV contrast Standing Status: Future Standing Expiration Date: 08/15/2025 Scheduling Instructions: Please call pt to [facility] hussein Order Specific Question: Reason for exam: Answer: Eval Left knee r/o Medial meniscus injury Ambulatory referral to Physical Therapy Standing Status: Future Standing Expiration Date: 02/12/2025 Referral Priority: Routine Referral Type: Consultation Referral Reason: Specialty Services Required Referral Location: [facility] Scheduling Requested Specialty: Physical Therapy Number of Visits Requested: 1 ASSESSMENT: ICD-10-CM 1. Acute pain of left knee M25.562 Ambulatory referral to Physical Therapy 2. Acute pain of right knee M25.561 Ambulatory referral to Physical Therapy 3. 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 Chondromalacia, patella, right M22.41 Ambulatory referral to Physical Therapy 5. Internal derangement of left knee M23.92 MR knee left wo IV contrast F/U Dr. Delacruz s/p MRI to discuss need for possible: Consider knee arthroscopy left knee ( pt doing PT in interim for VMO strengthening [facility]) Surgical and non surgical tx options discussed with conservative measures reviewed. Recommend ICE/ ELEVATION, continued activity modification in interim. Pt would consider surgical intervention to possibly improve symptoms. Assessment & Plan 1. Persistent left knee pain. The patient reports sharp medial knee pain with temporary relief from an intra-articular injection. An MRI of the left knee will be obtained to rule out a medial meniscus tear due to persistent symptoms despite conservative measures. 2. Right knee pain. The patient experiences peripatellar symptoms in the right knee, likely related to her activity level and bilateral anterior knee pain. Aquatic physical therapy is recommended to strengthen the knees and improve patellar tracking, potentially limiting underlying arthritic symptoms. PROCEDURE The patient had temporary relief with an intra-articular injection. Questions answered in laymen terms at the bedside. The diagnosis, home exercise plan and any ongoing restrictions/ recommendations reviewed. If unable to be reached in office, I recommend evaluation at nearest Emergency Room if any symptoms worsened or new symptoms develop for requiring urgent evaluation. documented in this encounter [facility] 06-27-2024 History of Present illness Narrative Associated Order(s): L Inj/Asp: L knee Post-Procedure Diagnose(s): Arthritis of left knee Images from the original note were not included. HISTORY OF PRESENT ILLNESS: EST PT Patricia Plaza is an 63 y.o. @ female. (R) KNEE (EST PT) RECHECK (R) KNEE ; S/P PREDNISONE 06/04/24 (3WKS 2DAYS) XRAYS, 06/04/24 [facility], 02/06/17 @ [facility] S/P PREDNISONE 06/04/24 S/P CORTISONE INJ 12/28/16, 12/21/17 S/P SYNVISC INJ 03/19/18 PREVIOUS (R) KNEE SCOPE 03/28/17 - DR DELACRUZ D/C PREDNISONE AFTER 5 DAYS D/T ANKLE SWELLING - NOTES SOME TEMP RELIEF FROM PREDNISONE BUT CONTINUES TO HAVE SOME DISCOMFORT ; MEDIAL / POSTERIOR PAIN. NOTES GOOD ROM ; DENIES ANY WEAKNESS / INSTABILITY. CONTINUES TO ICE ; TAKING ALEVE PRN. H/O INJURY : LATE 04/2024 ; STATES SHE HAD PAIN AFTER TRYING TO GET HER OFF THE FLOOR AFTER FALLING OUT OF BED (L) KNEE (EST PT) RECHECK (L) KNEE ; S/P PREDNISONE 06/04/24 (3WKS 2DAYS) XRAYS, STANDING AP 06/04/24 IN [facility], 03/06/19 @ [facility], 03/11/19 @ [facility] S/P PREDNISONE 06/04/24 S/P CORTISONE INJ 04/09/18 (~11 MONTHS) PREVIOUS PHYSICAL THERAPY ; MAR 2018 / SUMMER 2018 D/C PREDNISONE AFTER 5 DAYS D/T ANKLE SWELLING - DENIES ANY RELIEF FROM PREDNISONE. CONTINUES TO HAVE DISCOMFORT ; POSTERIOR ASPECT. NOTES LIMITED ROM ; UNSURE OF INSTABILITY / WEAKNESS. CONTINUES TO ICE ; TAKING ALEVE PRN. H/O INJURY : LATE 04/2024 ; STATES SHE HAD PAIN AFTER TRYING TO GET HER OFF THE FLOOR AFTER FALLING OUT OF BED ALLERGIES: Allergies Allergen Reactions Morphine Hives Stroke like symptoms Oxycodone-Acetaminophen Itching Prednisone Swelling ANKLE SWELLING Codeine Hives, Itching and Rash HOME MEDICATIONS: Current Outpatient Medications Medication Instructions atorvastatin (Lipitor) 40 MG tablet Every 24 hours buPROPion XL (WELLBUTRIN XL) 150 mg, Daily clobetasol (Temovate) 0.05 % cream APPLY TO AFFECTED AREA TOPICALLY IN THE MORNING AND AT BEDTIME clonazePAM (KLONOPIN) 0.5 mg, 2 times daily PRN escitalopram (Lexapro) 10 MG tablet TAKE 1 TABLET BY MOUTH EVERY DAY FOR 90 DAYS famotidine (PEPCID) 20 mg, Daily RT Farxiga 10 MG insulin glargine (LANTUS) 35 Units, 2 times daily losartan (COZAAR) 50 mg, Daily RT Victoza 18 MG/3ML injection INJECT 1.8MG SUBCUTANEOUSLY ONCE DAILY PHYSICAL EXAM: Knee Musculoskeletal Exam Gait Antalgic: left Inspection Leg length disparity: no discrepancy Left Erythema: none Effusion: mild Edema: none Ecchymosis: none Deformity: none Alignment: varus Previous incision: arthroscopic portals Incision: well-healed Palpation Left Left knee palpation is unremarkable. Increased warmth: none Masses: none Crepitus: patellofemoral and medial Tenderness: present Lateral retinaculum: mild Medial joint line: moderate Patella: mild Range of Motion Left Left knee range of motion is normal and full. Strength Left Left knee strength is normal. Extension: 5/5. Extension is affected by pain. Flexion: 5/5. Instability Left Instability signs: none - stable Anterior drawer: normal Neurovascular Left Left knee neurovascular exam is normal. Pulses - PT: normal Posterior tibial: 2+ Capillary refill: warm and well-perfused Special Signs Left Left knee special signs are normal. General Constitutional: appears stated age Labored breathing: no Psychiatric: normal mood and affect Neurological: alert Skin: intact Lymphadenopathy: none Vitals: There is no height or weight on file to calculate BMI. Tobacco Use: Low Risk (06/27/2024) Patient History Smoking Tobacco Use: Never Smokeless Tobacco Use: Never Passive Exposure: Not on file Alcohol Use: Not on file IMAGING: L Inj/Asp: L knee on 06/27/2024 12:12 PM Indications: pain Details: 22 G needle, anterolateral approach Medications: 40 mg methylPREDNISolone acetate 40 MG/ML; 1 mL bupivacaine PF 0.5 % Outcome: tolerated well, no immediate complications UTILIZING ASEPTIC TECHNIQUE PT GIVEN INJECTION IN LEFT KNEE, NEUROVASC INTACT S/P INJ, TOLERATED WELL Procedure, treatment alternatives, risks and benefits explained, specific risks discussed. Consent was given by the patient. Patient was prepped and draped in the usual sterile fashion. Orders Placed This Encounter Procedures L Inj/Asp This order was created via procedure documentation ASSESSMENT: ICD-10-CM 1. Acute pain of left knee M25.562 2. Arthritis of left knee M17.12 Assessment & Plan 1. Bilateral knee pain. The left knee pain is more concerning today, with no signs or symptoms of infection. She notes relief with oral steroids, but experienced ankle swelling after 5 days of use, which subsided after stopping the medication. She has had steroids in the past without this reaction. The examination suggests patellofemoral arthritis and medial joint line involvement. Further evaluation of the left knee, including both surgical and nonsurgical treatments and a possible MRI, was discussed. She would like to try a cortisone injection as her spouse is currently in a skilled facility after a couple of falls. If symptoms persist, an MRI will be considered for further evaluation. Follow-up She will follow up in 4 to 5 weeks. Questions answered in laymen terms at the bedside. The diagnosis, home exercise plan and any ongoing restrictions/ recommendations reviewed. If unable to be reached in office, I recommend evaluation at nearest Emergency Room if any symptoms worsened or new symptoms develop for requiring urgent evaluation. documented in this encounter [facility] 06-24-2024 Evaluation note Diagnosis Onset Date Resolution Asthma acute June 24, 2024 11:40am Chronic kidney disease acute De 2023 11:40am Elevated cholesterol acute Dece [facility] 2023 11:40am Major depression acute June 24, 2024 11:40am Obesity acute June 24, 2024 11:40am Primary hypertension acute [facility]2023 11:40am Type 2 diabetes mellitus with diabetic polyneuropathy acute June 24 024 11:40am Type 2 diabetes mellitus with hyperglycemia acute May 11:40am Acute bronchitis due to other specified organisms acute August 12 025 3:42pm Type 2 diabetes mellitus with hyperglycemia acute July 3:42pm [facility] Work Phone: 1(511) 350-555512-30-2024 Evaluation note* Diagnosis Onset Date Resolution Status Admit Date Asthma acute June 24, 2024 11:40am Chronic kidney disease acute 2023 11:40am Elevated cholesterol acute Dece [facility] 2023 11:40am Major depression acute June 24, 2024 11:40am Obesity acute June 24, 2024 11:40am Primary hypertension acute [facility] 2023 11:40am Type 2 diabetes mellitus wit h diabetic polyneuropathy acute June 24, 2024 11:40am Type 2 diabetes mellitus wit h hyperglycemia acute June 24 024 11:40am Acute bronchitis due to othe r specified organisms acute July 3:42pm Type 2 diabetes mellitus wit h hyperglycemia acute August 12 025 3:42pm Asthma acute September 16 11:21am Chronic kidney disease acute [facility] 2024 11:21am Cough acute September 16 11:21am Elevated cholesterol acute [facility] 2024 11:21am Major depression acute September 162024 11:21am Obesity acute September 16 11:21am Primary hypertension acute [facility] 2024 11:21am Type 2 diabetes mellitus wit h diabetic polyneuropathy acute September 162024 11:21am Type 2 diabetes mellitus wit h hyperglycemia acute September 16, 2024 11:21am [facility] Work Phone: 1(283) 814-553912-17-2024 Telephone encounter Note* Telephone Encounter - Christin Frias - 06/11/2024 1:03 PM EST Called pt and informed her of these recommendations [id number] Miscellaneous Notes* Telephone Encounter - Christin Frias - 06/11/2024 1:03 PM EST Called pt and informed her of these recommendations * Telephone Encounter - ITZEL Pelletier - 06/11/2024 12:55 PM EST I don't think it is solely related to steroid.. If swelling is severe would recommend she stop and call PCP to discuss.. can wear compression socks. If needed * Telephone Encounter - Christin Frias - 06/11/2024 11:02 AM EST Pt called and left vm stated she saw you last week for Rt knee and was given a steroid she said andher ankles have been swollen since Monday, she wondered if this has anything to do with the steroid she is on ? Should she stay on it , or go off of it? Please advise her call back [phone] [id number] Telephone encounter Note* Telephone Encounter - ITZEL Pelletier - 06/11/2024 12:55 PM EST I don't think it is solely related to steroid.. If swelling is severe would recommend she stop and call PCP to discuss.. can wear compression socks. If needed [id number] Telephone encounter Note* Telephone Encounter - Christin Frias - 06/11/2024 11:02 AM EST Pt called and left vm stated she saw you last week for Rt knee and was given a steroid she said andher ankles have been swollen since Monday, she wondered if this has anything to do with the steroid she is on ? Should she stay on it , or go off of it? Please advise her call back [phone] [id number] History of Present illness Narrative* ITZEL Pelletier - 06/04/2024 11:15 AM EST Images from the original note were not included. NAME: Patricia Plaza : 1960 HISTORY OF PRESENT ILLNESS: NEW PT Patricia Plaza is an 63 y.o. @ female. B/L KNEE PAIN, RT>LT. FELL OUT OF BED, WAS TRYING TO GET HIM BACK UP, 2 WKS AGO (END OF 04/2024). RT KNEE: XRAY TODAY [facility] 06/04/24 XRAYS (12/18/18) @ [facility] HX TX : XRAY (03/19/18) @ [facility] SYNVISC INJ (03/19/18) PER ROB DEPO MEDROL INJ (12/21/17) PER ROB MRI RT KNEE W/O CONTRAST @ [facility] (02/06/17) XRAY (12/28/16) @ [facility] DEPO MEDROL INJ (12/28/16) PER DR DELACRUZ. HX RT KNEE SCOPE DR DELACRUZ 03/28/17 PAIN ANTERIOR AND POSTERIOR. DENIES RADIATION. WORSE WITH PROLONGED SITTING. TRIED IBU. NO CURRENT PAIN MEDS. STIFFNESS. DENIES N/T. SWELLING INITIALLY. DENIES POPPING/GRINDING. OCCAS GIVING OUT SENSATION. DOES NOT WAKE AT HS. LT KNEE: LAST TX 04/01/19, DR DELACRUZ RECOMMENDED KNEE SCOPE XRAY TODAY EPIC B/L AP 06/04/24 XRAY 03/06/19 @ [facility] 03/11/19 PREVIOUS PHYSICAL THERAPY (03/2018 & SUMMER 2018) - WITH RELIEF S/P CORTISONE INJ 04/09/18 (~11 MONTHS) - DENIES RELIEF NO PAIN MGMT PAIN ANTERIOR AND POSTERIOR, DENIES RADIATION. WORSE WITH PROLONGED SITTING. NO PAIN MEDS. STIFFNESS. DENIES POPPING/GRINDING. OCCAS GIVING OUT. PAST MEDICAL HISTORY: History reviewed. No pertinent past medical history. PAST SURGICAL HISTORY: History reviewed. No pertinent surgical history. SOCIAL HISTORY: Social History Occupational History Not on file Tobacco Use Smoking status: Never Smokeless tobacco: Never Substance and Sexual Activity Alcohol use: Not on file Drug use: Not on file Sexual activity: Not on file ALLERGIES: Allergies Allergen Reactions Morphine Hives Stroke like symptoms Oxycodone-Acetaminophen Itching Codeine Hives, Itching and [facility] MEDICATIONS: Current Outpatient Medications Medication Instructions atorvastatin (Lipitor) 40 MG tablet Every 24 hours buPROPion XL (WELLBUTRIN XL) 150 mg, Daily clobetasol (Temovate) 0.05 % cream APPLY TO AFFECTED AREA TOPICALLY IN THE MORNING AND AT BEDTIME clonazePAM (KLONOPIN) 0.5 mg, 2 times daily PRN escitalopram (Lexapro) 10 MG tablet TAKE 1 TABLET BY MOUTH EVERY DAY FOR 90 DAYS famotidine (PEPCID) 20 mg, Daily RT Farxiga 10 MG insulin glargine (LANTUS) 35 Units, 2 times daily losartan (COZAAR) 50 mg, Daily RT predniSONE (Deltasone) 20 MG tablet Take 2 tablets (40 mg) by mouth Daily for 5 days, THEN 1 tablet(20 mg) Daily for 5 days. Take with food. Victoza 18 MG/3ML injection INJECT 1.8MG SUBCUTANEOUSLY ONCE DAILY REVIEW OF SYSTEMS: Review of Systems Vitals: There is no height or weight on file to calculate BMI. Tobacco Use: Low Risk (06/04/2024) Patient History Smoking Tobacco Use: Never Smokeless Tobacco Use: Never Passive Exposure: Not on file Alcohol Use: Not on file PHYSICAL EXAM: Knee Musculoskeletal Exam Gait Gait is normal. Inspection Leg length disparity: no discrepancy Right Erythema: none Effusion: mild Edema: none Ecchymosis: none Deformity: none Alignment: normal Previous incision: arthroscopic portals Incision: well-healed Left Erythema: none Effusion: mild Edema: none Ecchymosis: none Deformity: none Alignment: normal Palpation Right Right knee palpation is unremarkable. Increased warmth: none Masses: none Crepitus: patellofemoral Tenderness: present Lateral retinaculum: moderate Patella: moderate Left Left knee palpation is unremarkable. Increased warmth: none Masses: none Tenderness: present Lateral retinaculum: mild Patella: moderate Range of Motion Right Right knee range of motion is normal and full. Left Left knee range of motion is normal and full. Strength Right Right knee strength is normal. Extension: 5/5. Flexion: 5/5. Left Left knee strength is normal. Extension: 5/5. Instability Right Instability signs: none - stable Varus stress grade: normal Valgus stress grade: normal Anterior drawer: normal Medial Yue test: negative Lateral Yue test: negative Left Instability signs: none - stable Varus stress grade: normal Valgus stress grade: normal Anterior drawer: normal Medial Yue test: negative Lateral Yue test: negative Neurovascular Right Right knee neurovascular exam is normal. Pulses - PT: normal Posterior tibial: 2+ Capillary refill: warm and well-perfused Left Left knee neurovascular exam is normal. Pulses - PT: normal Posterior tibial: 2+ Capillary refill: warm and well-perfused Special Signs Right Right knee special signs are normal. Straight leg raise: normal Patellar apprehension: moderate Left Straight leg raise: normal Patellar apprehension: moderate General Constitutional: appears stated age Labored breathing: no Psychiatric: normal mood and affect Neurological: alert Skin: intact Lymphadenopathy: none IMAGING: XR knee 1 or 2 views right Imaging Result: AP and Lateral right knee: No acute fracture or dislocation. Symmetric joint space narrowing medially with mild subchondral sclerosis to weight bearing surfaces Trace effusion Impression: No acute bony process right knee. Procedures Orders Placed This Encounter Procedures XR knee 1 or 2 views right Order Specific Question: Reason for exam: Answer: pain ASSESSMENT: ICD-10-CM 1. Acute pain of right knee M25.561 XR knee 1 or 2 views right 2. Acute pain of left knee M25.562 3. 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 Chondromalacia, patella, right M22.41 predniSONE (Deltasone) 20 MG tablet Assessment & Plan 1. Bilateral knee pain, right greater than left. Clinical exam noted for patellofemoral discomfort bilaterally. Symptoms with steps. Patient notes symptoms today improved from last month. A home exercise plan and oral steroid were recommended to help with inflammation. Risks and benefits were discussed. If symptoms persist, an injection or formalphysical therapy will be considered. Follow-up The patient will follow up in 5 to 6 weeks. Questions answered in laymen terms at the bedside. The diagnosis, home exercise plan and any ongoing restrictions/ recommendations reviewed. If unable to be reached in office, I recommend evaluation at nearest Emergency Room if any symptoms worsened or new symptoms develop for requiring urgent evaluation. documented in this encounterSaint Alexius [id number] Chief complaint+Reason for visit Narrative* Chief Complaint Admit Date Referral Dr. Hebert / tommie on phone 2023 2:46pm 3 month March 20, 2024 11:00am 5 week f/u-DMN f/u April 11, 2024 1 :57pm Reason for Visit Admit Date CKD (chronic kidney disease) stage 3, GF R 30-59 ml/min March 05, 2024 2:46pm Dietary counseling and surveillance Feb 2:46pm Elevated cholesterol March 05 2:46pm Primary hypertension March 05 2:46pm Type 2 diabetes mellitus with diabetic p olyneuropathy March 05, 2024 2:46pm Vitamin D deficiency, unspecified Sept2023 2:46pm Asthma March 20, 2024 11:00am Chronic kidney disease March 20, 2 024 11:00am Elevated cholesterol March 20 11:00am Major depression March 20, 2024 11:00am Obesity March 20, 2024 11:00am Primary hypertension March 20 11:00am Type 2 diabetes mellitus with diabetic p olyneuropathy March 20, 2024 11:00am Type 2 diabetes mellitus with hyperglyce gloria March 20, 2024 11:00am CKD (chronic kidney disease) stage 3, GF R 30-59 ml/min April 11, 2024 1:57pm Dietary counseling and surveillance 2023 1:57pm Elevated cholesterol April 11, 2024 1:57pm Primary hypertension April 11, 2024 1:57pm Type 2 diabetes mellitus with diabetic p olyneuropathy April 11, 2024 1:57pm Vitamin D deficiency, unspecified Octobe r 2023 1:57pm [facility] Work Phone: 1(680) 857-412409-10-2024 Evaluation note* Diagnosis Onset Date Resolution Status Admit Date CKD (chronic kidney disease) stage 3, GFR 30-59 ml/min acute 2023 2:46pm Dietary counseling and surveillance acute March 05, 2024 2:46pm Elevated cholesterol acute Feb 2:46pm Primary hypertension acute Feb 2:46pm Type 2 diabetes mellitus wit h diabetic polyneuropathy acute Febemb2023 2:46pm Vitamin D deficiency, unspecified acute March 05, 2024 2:46pm Asthma acute February 11:00am Chronic kidney disease acute Se pt2023 11:00am Elevated cholesterol acute Feb 11:00am Major depression acute Febemb r 2023 11:00am Obesity acute February 11:00am Primary hypertension acute Feb 11:00am Type 2 diabetes mellitus wit h diabetic polyneuropathy acute Febemb r 2023 11:00am Type 2 diabetes mellitus wit h hyperglycemia acute March 20, 2024 11:00am CKD (chronic kidney disease) stage 3, GFR 30-59 ml/min acute Octobe r 2023 1:57pm Dietary counseling and surveillance acute April 11 1:57pm Elevated cholesterol acute 2023 1:57pm Primary hypertension acute 2023 1:57pm Type 2 diabetes mellitus wit h diabetic polyneuropathy acute April 11, 2024 1:57pm Vitamin D deficiency, unspecified acute April 11 1:57pm [facility] Work Phone: 1(700) 356-168007-31-2024 History of Present illness Narrative* Gaby Nation RN - 01/24/2024 1:15 PM EDT The outpatient lab called stating that the patient is to drop off a lab specimen. Per Dr. Khalil's previous notes the patient was to have a repeat culture if 2-3 weeks to see if the UTI has cleared. Order placed. MEJIA Hernandez, RN documented in this encounterClinton [facility]07-29-2024 Miscellaneous Notes* Telephone Encounter - Bailey Linn - 01/22/2024 2:51 PM EDT Patient states [facility] called over the weekend to inform Patient the boric acid 600mg suppository is no longer being made. Patient states [facility] advised they could recommend an [id number] product. Patient is wondering if she should use the ubgf-hzu-iokbhmq option or if you wanted to [facility] another [facility]. Please advise. Thank you * Telephone Encounter - Bailey Linn - 01/22/2024 2:51 PM EDT LVM for Patient to call Office. * Telephone Encounter - Bailey Linn - 01/22/2024 2:51 PM EDT Patient returned call & advised fzje-nxe-qsemeea boric acid is fine. Patient voiced understanding. documented in this encounterClinton [facility] Hospital07-29-2024 Telephone encounter Note* Telephone Encounter - Bailey Linn - 01/22/2024 2:51 PM EDT Patient states [facility] called over the weekend to inform Patient the boric acid 600mg suppository is no longer being made. Patient states [facility] advised they could recommend an kotp-dfy-frxcutv product. Patient is wondering if she should use the bzdc-uzq-murmhiu option or if you wanted to place another order to [facility]. Please advise. [facility] you [facility] [id number] Telephone encounter Note* Telephone Encounter - Bailey Linn - 01/22/2024 2:51 PM EDT LVM for Patient to call Office. [facility] [id number] Telephone encounter Note* Telephone Encounter - Bailey Linn - 01/22/2024 2:51 PM EDT Patient returned call & advised yrpi-dwi-[id number] boric acid is fine. Patient voiced understanding. [facility] [id number] History of Present illness Narrative* Berta Khalil, - 01/11/2024 1:30 PM EDT Subjective Patient ID: Patricia Plaza is a pleasant 63 y.o. female who presented today for follow-up on her lichen sclerosis, recurrent urinary tract infection, and recurrent Mauri glabrata infection. Patient does have type 2 diabetes. She is on insulin. She has been having a difficult time controlling her glucose. She states today she has not eaten yet her levels are greater than 200. She does have an appointment pending with an warp splitter in [place]. She reports she is feeling significantly better. We did once again complete pre authorization for clobetasol for her lichen sclerosis. She does still have a whitish discharge. She is concerned that some of the medication she has been started on for diabetes state potential side effects are recurrent yeast infections and urinary tract infectionswhich she has been fighting for several months now. Chief Complaint: Recurrent urinary tract infection, recurrent Mauri glabrata, lichen sclerosis Menstrual History: OB History No obstetric history on file. No LMP recorded. Patient has had a hysterectomy. The following portions of the patient's history were reviewed and updated as appropriate: allergies, current medications, past family history, past medical history, past social history, past surgicalhistory, problem list, and medication reconciliation was completed including current medication andpost discharge medication. Review of Systems Constitutional: negative Respiratory: negative Cardiovascular: negative Gastrointestinal: negative Genitourinary: Recurrent urinary tract infections, recurrent Mauri glabrata, poorly controlled type 2 diabetes, lichen sclerosis Endocrine: Difficult to control type 2 diabetes appointment with new warp splitter pending Objective BP 126/68 Wt 109.1 kg (240 lb 9.6 oz) BMI 35.53 kg/m General: alert, appears stated age, and cooperative Heart: regular rate and rhythm, S1, S2 normal, no murmur, click, rub or gallop Lungs: clear to auscultation bilaterally Abdomen: soft, non-tender, without masses or organomegaly Vulva: External labia minora and inguinal folds now completely clear there is still some erythema on the anterior portions of the labia majora significantly improved over initial presentation Vagina: curdlike discharge V nap collected Cervix: no lesions Assessment 1. Dyspareunia in female 2. Candidiasis of genitalia in female 3. Atrophic vaginitis 4. Acute cystitis without hematuria 5. Burning with urination 6. Type 2 diabetes mellitus with other skin complication, unspecified whether technician terminal and repeater insulin use([facility]) 7. Vaginal itching 8. Vaginal irritation 9. Mauri glabrata infection Plan 1. V nap was collected we will contact patient with results there was whitish discharge appreciatedin the vagina. 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 If positive once again will discuss treatment options. 2. Pre authorization paperwork was once again submitted for patient's clobetasol secondary to her lichen sclerosis 3. Urinalysis/urine culture entered we will contact with results 4. Will plan on seeing patient back in 3 months, however if her glabrata is once again positive we will have her back prior to that time discuss additional treatment options and for additional testing documented in this encounterCl[facility] Hospital07-16-2024 Miscellaneous Notes* Telephone Encounter - Awilda Freeman RN - 01/09/2024 3:34 PM EDT Telephone call to patient to follow up on her Clobetasol cream pharmacy denial letter. She is advides that her cream may be obtained at a discounted pantoja through [facility] while using a coupon from [employer]. She relates that Dr. Khalil has already written a letter for her to receive the cream from her mail order pharmacy. She is again provided the information for obtaining it at a discounted pantoja at local pharmacies with the use of [employer] coupons if needed.. She verbalizes understanding. Tom Freeman RN documented in this encounterClinton [facility] Hospital07-16-2024 Telephone encounter Note* Telephone Encounter - Awilda Freeman RN - 01/09/2024 3:34 PM EDT Telephone call to patient to follow up on her Clobetasol cream pharmacy denial letter. She is advides that her cream may be obtained at a discounted pantoja through [facility] while using a coupon from [employer]. She relates that Dr. Khalil has already written a letter for her to receive the cream from her mail order pharmacy. She is again provided the information for obtaining it at a discounted pantoja at local pharmacies with the use of [employer] [facility] coupons if needed.. She verbalizes understanding. Tom Freeman RN [facility]06-27-2024 Miscellaneous Notes* Telephone Encounter - Bebe Spence - 12/21/2023 1:09 PM EDT Patient called stating she started the Macrobid prescription. It gave her terrible diarrhea. The patient got 4 doses before she quit taking it & didn't finish the prescription. The last dose the patient took was Monday night. The patient has not had any other changes that would cause the diarrhea. Patient would like to know if something else can be prescribed for her. Please advise. Thank you. * Telephone Encounter - Jenniffer Finley RN - 12/21/2023 1:09 PM EDT Called patient regarding new prescription for Keflex having been sent into her pharmacy. No answer.Left message that she should stop the Macrobid and pick up attendant and start the new prescription. To call office for any concerns. documented in this encounterCl[facility] Hospital06-27-2024 Telephone encounter Note* Telephone Encounter - Bebe Spence - 12/21/2023 1:09 PM EDT Patient called stating she started the Macrobid prescription. It gave her terrible diarrhea. The patient got 4 doses before she quit taking it & didn't finish the prescription. The last dose the patient took was Monday night. The patient has not had any other changes that would cause the diarrhea. Patient would like to know if something else can be prescribed for her. Please advise. Thank you. [facility]06-27-20[facility] Telephone encounter Note* Telephone Encounter - Jenniffer Finley RN - 12/21/2023 1:09 PM EDT Called patient regarding new prescription for Keflex having been sent into her pharmacy. No answer.Left message that she should stop the Macrobid and pick up attendant and start the new prescription. To call office for any concerns. [facility]06-13-[facility] History of Present illness Narrative* Berta Khalil DO - 12/07/2023 1:30 PM EDT PROCEDURE: Biopsy of lichen sclerosis. Lesion displays intense itching, inflammation, and hyperpigmentation and scar. Location: Vulva, labia, perineum, clitoral blood Size of biopsy: 3mm Informed Consent: The indications, risks, benefits and alternatives to the procedure, including no procedure, were discussed in detail. Risks of the procedure were described and verbal consent was obtained. The surgical site was prepped with Betadine x3. Sterile technique was used throughout the procedure. Anesthesia was obtained using 1% lidocaine plain. A biopsy was obtained from the lesion using 3 mm punch. The hemostasis was achieved using silver nitrate. The procedure was well tolerated without complications. Blood loss was minimal. The specimen was submitted to pathology. The patient was educated about signs of infection, and wound care instructionswere reviewed. The patient will be contacted in 7-10 days with the biopsy results and a follow up plan will be discussed at that time. V nap was also collected prior to procedure as patient did have candidiasis glabrata with her last collection. She reports that symptomatically she is feeling much better as she was treated for a urinary tract infection, C glabrata, and lichen sclerosis. She is concerned that her insurance may not c over the clobetasol for the lichen sclerosis. She does have a letter from her insurance company where she states she can bring to the office if it needs to be completed to make sure that her medication is covered. documented in this encounterClinton [facility] Hospital06-13-2024 Miscellaneous Notes* Addendum Note - Awilda Freeman RN - 12/07/2023 1:30 PM EDTAddended by: MEGGAN FREEMAN on: 12/07/2023 02:50 PM Modules accepted: Orders documented in this encounterClinton [facility] Hospital06-13-2024 Note* Addendum Note - Awilda Freeman RN - 12/07/2023 1:30 PM EDTAddended by: MEGGAN FREEMAN on: 12/07/2023 02:50 PM Modules accepted: Orders [facility]05-16-2024 History of Present illness Narrative* Berta Khalil DO - 11/09/2023 1:15 PM EDT Subjective Patient ID: Patricia Plaza is a pleasant 62 y.o. female who presents today as a new patient with a complaint of recurrent vaginal yeast infections and bacterial vaginosis. Patient does have type 2 diabetes which she is having a difficult time controlling right now. She has recently had her medications changed and will be beginning Lantus. Patient has been to urgent care several times as well as toa wound care doctor. She has been prescribed multiple medications to include amoxicillin, Diflucan,hydrocortisone and Flagyl, but has not had significant improvement in her symptoms. She reports that she has incredible itching and irritation of the external vagina down towards her anus. She also st ates that she is incredibly sensitive to soap, but was told by the wound care physician that she needed to use soap on her vagina which made the irritation worse. Patient also reports inability to have intercourse with her secondary to discomfort and pain. Chief Complaint: Recurrent yeast and BV, severe pain itching and irritation of the vulva resistant to previous treatments, pain with intercourse Menstrual History: OB History No obstetric history on file. Menarche age: No LMP recorded. Patient has had a hysterectomy. The following portions of the patient's history were reviewed and updated as appropriate: allergies, current medications, past family history, past medical history, past social history, past surgicalhistory, problem list, and medication reconciliation was completed including current medication andpost discharge medication. Review of Systems Constitutional: negative Respiratory: negative Cardiovascular: negative Genitourinary:severe itching irritation of the vagina resistant to previous treatments, possible recurrent yeast and bacterial vaginosis, pain with intercourse inability to have intercourse Endocrine: difficult to control type 2 diabetes with a recent change in medication Objective BP 144/82 Wt 108 kg (238 lb) BMI 35.15 kg/m General: alert, appears stated age, and cooperative Heart: regular rate and rhythm, S1, S2 normal, no murmur, click, rub or gallop Lungs: clear to auscultation bilaterally Abdomen: soft, non-tender, without masses or organomegaly Vulva: The external labia majora have severe erythema there is notable loss of labia minora with skin stretched tight over the clitoral blood there is some hypopigmentation of the perineum down to theanus consistent with lichen sclerosis Vagina: Loss of labial folds appreciated with some whitish vaginal discharge V nap was collected Assessment 1. Vaginal itching 2. Burning with urination 3. Lichen sclerosus 4. Candidiasis of genitalia in female 5. Type 2 diabetes mellitus with other skin complication, unspecified whether prison insulin use([facility]) Plan 1. Probable lichen sclerosis clobetasol to be used twice daily for 2 weeks then nightly for 2 weekswe will then see patient back and plan on a vulvar biopsy for confirmation and see if the medication is improving her symptoms 2. We did collect a V nap if patient does have a bacterial or yeast infection we will call in a medication for her. We will call her with the results. 3. Patient to continue with her new medication to control her glucose levels as poorly controlled glucose can exacerbate recurrent yeast infections. 4. May consider 15 day course of boric acid if the V nap is positive 40 minutes was spent reviewing patient's chart, physical exam, ordering medications and labs as well as in the room discussion of recurrent yeast and BV, lichen sclerosis, vulvar biopsy and what thatentails, treatment options for all of the above, and possible need for yearly exams if lichen sclerosis is determined secondary to slight increased risk and vulvar cancer. documented in this encounterAultman Orrville HospitalHelmi Technologies [facility] [id number] Evaluation note* Encounter Date Diagnosis Assessment Notes Treatment Notes Treatment Clinical Notes May, Type 2 diabetes mellitus with diabetic polyneuropathy (ICD-10 - E11.42) Inspect feet daily for cuts and calluses.Recommend diabetic shoes and inserts to prevent callus formation.Fall precautions. May, Type 2 diabetes mellitus with hyperglycemia (ICD-10 - E11.65) This patient is following a comprehensive diabetic treatment plan. They are checking their feet daily for calluses and nonhealing ulcers. They are being seen for yearly dilated eye examinations. Goals: SBP less than 130, LDL less than 100, FBS less than 140, A1C less than 7%. They are checking their BS daily, will which are reviewed at the office visit. Continue regular routine monitoring of A1C,] Microalbumin, Dilated eye exam and Foot exam Stressed importance of healthy, low calorie diet, exercise and weight loss. May, Primary hypertension (ICD-10 - I10) This patient is instructed to consume a healthy, low-fat, low-salt diet. They are also encouraged to continue exercise to achieve/maintain a normal BMI. May, Elevated cholesterol (ICD-10 - E78.00) Instructed on diet and exercise with continued statin therapy.Discussed the beneficial effects of lowering cholesterol in reducing the risk for cerebrovascular and cardiovascular disease. May, Morbid (severe) obesity due to excess calories (ICD-10 - E66.01) This patient has been instructed on a low-fat, high-fiber diet. They are instructed to reduce calories, portion sizes and snacks. It is recommended that they exercise for 30 minutes, 3-5 times weekly. May, Body mass index [BMI] 35.0-35.9, adult (ICD-10 - Z68.35) [employer] Other 07-19-2023 Evaluation note* Encounter Date Diagnosis Assessment Notes Treatment Notes Treatment Clinical Notes Dec, Type 2 diabetes mellitus with diabetic polyneuropathy (ICD-10 - E11.42) Inspect feet daily for cuts and calluses.Recommend diabetic shoes and inserts to prevent callus formation.Fall precautions. Dec, Type 2 diabetes mellitus with hyperglycemia (ICD-10 - E11.65) This patient is following a comprehensive diabetic treatment plan. They are checking their feet daily for calluses and nonhealing ulcers. They are being seen for yearly dilated eye examinations. Goals: SBP less than 130, LDL less than 100, FBS less than 140, AC and A1C less than 7%. They are checking their BS daily, will which are reviewed at the office visit. Continue regular routine monitoring of A1C,] Microalbumin, Dilated eye exam and Foot exam Dec, Chronic kidney disease, stage 3a (ICD-10 - N18.31) The patient is instructed on adequate control of hypertension and diabetes, if appropriate. They are also educated on the associated risks of NSAIDs and PPI use with kidney disease. They were instructed on adequate fluid balance and to avoid dehydration. Dec, Primary hypertension (ICD-10 - I10) This patient is instructed to consume a healthy, low-fat, low-salt diet. They are also encouraged to continue exercise to achieve/maintain a normal BMI. Dec, Elevated cholesterol (ICD-10 - E78.00) Instructed on diet and exercise with continued statin therapy.Discussed the beneficial effects of lowering cholesterol in reducing the risk for cerebrovascular and cardiovascular disease. Dec, Morbid (severe) obesity due to excess calories (ICD-10 - E66.01) This patient has been instructed on a low-fat, high-fiber diet. They are instructed to reduce calories, portion sizes and snacks. It is recommended that they exercise for 30 minutes, 3-5 times weekly. Dec, Body mass index [BMI] 35.0-35.9, adult (ICD-10 - Z68.35) [employer] Other 01-19-2023 Evaluation note* Encounter Date Diagnosis Assessment Notes Treatment Notes Treatment Clinical Notes Jun, Type 2 diabetes mellitus with hyperglycemia (ICD-10 - E11.65) This patient is following a comprehensive diabetic treatment plan. They are checking their feet daily for calluses and nonhealing ulcers. They are being seen for yearly dilated eye examinations. Goals: SBP less than 130, LDL less than 100, FBS less than 140, AC and A1C less than 7%. They are checking their BS daily, will which are reviewed at the office visit. I feel she has been prescribed optimal medication for her T2DM - SGLT-2, GLP-1 and basal insulin - stress importance of dietary changes and exercise - offered to refer to diabetic teaching but declined Jun, Wellness examination (ICD-10 - Z00.00) Healthy diet and exercise. Reviewed age-appropriate preventive testing recommended. Jun, Type 2 diabetes mellitus with diabetic polyneuropathy (ICD-10 - E11.42) Inspect feet daily for cuts and calluses. Fall precautions. Proper fitting footwear w/ inserts to prevent callus formation. Jun, Primary hypertension (ICD-10 - I10) This patient is instructed to consume a healthy, low-fat, low-salt diet. They are also encouraged to continue exercise to achieve/maintain a normal BMI. Jun, Mild persistent asthma without complication (ICD-10 - J45.30) Avoid extremes of temperature. BETH as needed for cough, dyspnea Jun, CHELSEA (generalized anxiety disorder) (ICD-10 - F41.1) Healthy diet and exercise. Review treatment w/ patient, to call in medication list Jun, Elevated cholesterol (ICD-10 - E78.00) Diet and exercise with continued statin therapy. Jun, Exogenous obesity (ICD-10 - E66.09) This patient has been instructed on a low-fat, high-fiber diet. They are instructed to reduce calories, portion sizes and snacks. It is recommended that they exercise for 30 minutes, 3-5 times weekly. Jun, long-term (current) use of insulin (ICD-10 - Z79.4) [employer] Other chief complaint+Reason for visit Narrative* Chief Complaint follow up// Diabetic fever , migraine, sore throat Referral Dr. Hebert / tommie on phone Reason for Visit Asthma Elevated cholesterol Major depression Primary hypertension Type 2 diabetes mellitus with diabetic polyneuropathy Type 2 diabetes mellitus with hyperglycemia Screening for colon cancer Screening mammogram for breast cancer Welcome to Medicare preventive visit Acute bronchitis due to other specified organisms Asthma CKD (chronic kidney disease) stage 3, GFR 30-59 ml/min Dietary counseling and surveillance Elevated cholesterol Primary hypertension Type 2 diabetes mellitus with diabetic polyneuropathy Vitamin D deficiency, unspecified [facility] Work Phone: chief complaint+Reason for visit Narrative* Chief Complaint fever , migraine, so re throat Referral Dr. Hebert / tommie on phone 3 month Reason for Visit Acute bronchitis due to other specified organisms Asthma CKD (chronic kidney disease) stage 3, GFR 30-59 ml/min Dietary counseling and surveillance Elevated cholesterol Primary hypertension Type 2 diabetes mellitus with diabetic polyneuropathy Vitamin D deficiency, unspecified Asthma Chronic kidney disease Elevated cholesterol Major depression Obesity Primary hypertension Type 2 diabetes mellitus with diabetic polyneuropathy Type 2 diabetes mellitus with hyperglycemia [facility] Work Phone: chief complaint+Reason for visit Narrative* Chief Complaint fever , migraine, so re throat Referral Dr. Hebert / tommie on phone 3 month 5 week f/u-DMN f/u Reason for Visit Acute bronchitis due to other specified organisms Asthma CKD (chronic kidney disease) stage 3, GFR 30-59 ml/min Dietary counseling and surveillance Elevated cholesterol Primary hypertension Type 2 diabetes mellitus with diabetic polyneuropathy Vitamin D deficiency, unspecified Asthma Chronic kidney disease Elevated cholesterol Major depression Obesity Primary hypertension Type 2 diabetes mellitus with diabetic polyneuropathy Type 2 diabetes mellitus with hyperglycemia CKD (chronic kidney disease) stage 3, GFR 30-59 ml/min Dietary counseling and surveillance Elevated cholesterol Primary hypertension Type 2 diabetes mellitus with diabetic polyneuropathy Vitamin D deficiency, unspecified [facility] Work Phone: Evaluation + Plan note No data available for this section [facility] evaluation noteNo assessment information available [facility] Work Phone: evalupbyir noteNo InformationNort [facility] [employer] Other Evaluation note* Diagnosis Onset Date Resolution Status Asthma acute Elevated cholesterol acute Major depression acute Primary hypertension acute Type 2 diabetes mellitus wit h diabetic polyneuropathy acute Type 2 diabetes mellitus with hyperglycemia acute Welcome to Medicare preventive visit noneactive [facility] Work Phone: Evaluation note* Diagnosis Onset Date Resolution Status Asthma acute Elevated cholesterol acute Major depression acute Primary hypertension acute Type 2 diabetes mellitus wit h diabetic polyneuropathy acute Type 2 diabetes mellitus with hyperglycemia acute Screening for colon cancer n oneactive Screening mammogram for breast cancer noneactive Welcome to Medicare preventive visit noneactive [facility] Work Phone: evaluation note* Diagnosis Onset Date Resolution Status Asthma acute Elevated cholesterol acute Major depression acute Primary hypertension acute Type 2 diabetes mellitus wit h diabetic polyneuropathy acute Type 2 diabetes mellitus with hyperglycemia acute Screening for colon cancer n oneactive Screening mammogram for breast cancer noneactive Welcome to Medicare preventive visit noneactive Acute bronchitis due to other specified organisms acute Asthma acute CKD (chronic kidney disease) stage 3, GFR 30-59 ml/min acute Dietary counseling and surveillance acute Elevated cholesterol acute Primary hypertension acute Type 2 diabetes mellitus wit h diabetic polyneuropathy acute Vitamin D deficiency, unspecified acute [facility] Work Phone: evalutumcv note* Diagnosis Onset Date Resolution Status Acute bronchitis due to other specified organisms acute Asthma acute CKD (chronic kidney disease) stage 3, GFR 30-59 ml/min acute Dietary counseling and surveillance acute Elevated cholesterol acute Primary hypertension acute Type 2 diabetes mellitus with diabetic polyneuropathy acute Vitamin D deficiency, unspecified acute Asthma acute Chronic kidney disease acute Elevated cholesterol acute Major depression acute Obesity acute Primary hypertension acute Type 2 diabetes mellitus with diabetic polyneuropathy acute Type 2 diabetes mellitus with hyperglycemia acute [facility] Work Phone: evaluation note* Diagnosis Onset Date Resolution Status Acute bronchitis due to other specified organisms acute Asthma acute CKD (chronic kidney disease) stage 3, GFR 30-59 ml/min acute Dietary counseling and surveillance acute Elevated cholesterol acute Primary hypertension acute Type 2 diabetes mellitus with diabetic polyneuropathy acute Vitamin D deficiency, unspecified acute Asthma acute Chronic kidney disease acute Elevated cholesterol acute Major depression acute Obesity acute Primary hypertension acute Type 2 diabetes mellitus with diabetic polyneuropathy acute Type 2 diabetes mellitus with hyperglycemia acute CKD (chronic kidney disease) stage 3, GFR 30-59 ml/min acute Dietary counseling and surveillance acute Elevated cholesterol acute Primary hypertension acute Type 2 diabetes mellitus with diabetic polyneuropathy acute Vitamin D deficiency, unspecified acute [facility] Work Phone: Evaluation note* Diagnosis Acute pain of right knee- Primary Acute pain of left knee Chondromalacia, patella, left Chondromalacia, patella, right documented in this encounter [facility]* Diagnosis Acute pain of left knee- Primary Arthritis of left knee documented in this encounter [facility]* Diagnosis Vaginal itching- Primary Pruritus of genital organs Burning with urination Dysuria Lichen sclerosus Circumscribed scleroderma Candidiasis of genitalia in female Type 2 diabetes mellitus with other skin complication, unspecified whether technician terminal and repeater insulin use [place] Dyspareunia in female Atrophic vaginitis Postmenopausal atrophic vaginitis [facility]* Diagnosis Lichen sclerosus- Primary Circumscribed scleroderma Vaginal irritation Pruritus of genital organs UTI (urinary tract infection), bacterial Mauri glabrata infection Candidiasis of unspecified site [facility] Diagnosis Acute cystitis without hematuria- Primary Mauri glabrata infection Candidiasis of unspecified site [facility]* Diagnosis UTI (urinary tract infection), bacterial- Primary documented in [facility]* Diagnosis Dyspareunia in female- Primary Candidiasis of genitalia in female Atrophic vaginitis Postmenopausal atrophic vaginitis Acute cystitis without hematuria Burning with urination Dysuria Type 2 diabetes mellitus with other skin complication, unspecified whether prison insulin use ([facility]) Vaginal itching Pruritus of genital organs Vaginal irritation Pruritus of genital organs Mauri glabrata infection Candidiasis of unspecified site [facility]* Diagnosis Mauri glabrata infection- Primary Candidiasis of unspecified site [facility] Diagnosis Dyspareunia in female- Primary Dysuria documented [facility]* Diagnosis Acute pain of left knee- Primary Acute pain of right knee Chondromalacia, patella, left Chondromalacia, patella, right Internal derangement of left knee documented in this encounter [facility]* Diagnosis Acute pain of left knee- Primary Internal derangement of left knee Arthritis of left knee documented in this encounter [facility]* Diagnosis Pre-op examination- Primary documented in this encounter [facility]* Diagnosis Internal derangement of left knee- Primary documented in this encounter [facility] general Narrative - Reported* Type Description Date Medical History Controlled type 2 di abetes mellitus with hyperglycemia, without long-term current use of insulin Medical History DM type 2 with diabetic peripher al neuropathy Medical History Asthma Medical History CHELSEA (generalized anxiety disorde r) Medical History Hypertension [employer] Other History general Narrative - Reported* Type Description Date Medical History Controlled type 2 di abetes mellitus with hyperglycemia, without long-term current use of insulin Medical History DM type 2 with diabetic peripher al neuropathy Medical History Asthma Medical History CHELSEA (generalized anxiety disorde r) Medical History Hypertension Surgical History AIXA/BSO Surgical History CHOLECYSTECTOMY 2004 Surgical History ARTHROSCOPY LEFT SHOULDER 2010 Surgical History RIGHT KNEE CHONDROPLASTY Hospitalization History SEE SURGICAL HX [employer] Other Hospital Discharge instructions No data available for this section [facility] Instructions* Attachments The following attachments cannot be sent through Care Everywhere. * Lichen sclerosus (British) * Clobetasol, ADULT (British) [facility] Attachments The following attachments cannot be sent through Care Everywhere. * Vulvovaginal yeast infection (British) [facility] System[facility]ructionsNot on file documented in [facility] SystemInstructionsNot on file documented in [facility] SystemInstructionsNot on file documented in this [facility] SystemInstructionsNot on file documented in [facility] SystemInstructionsNot on file documented in [facility] SystemProgress note No data available for this section [facility] Chief Complaint and Reason for Visit Chief Complaint cbc Chief Complaint cbc and a1c Chief Complaint Amb Documentation follow up// Diabetic Reason for Visit Asthma Elevated cholesterol Major depression Primary hypertension Type 2 diabetes mellitus with diabetic polyneuropathy Type 2 diabetes mellitus with hyperglycemia Welcome to Medicare preventive visit Chief Complaint Amb Documentation follow up// Diabetic fever , migraine, sore throat Reason for Visit Asthma Elevated cholesterol Major depression Primary hypertension Type 2 diabetes mellitus with diabetic polyneuropathy Type 2 diabetes mellitus with hyperglycemia Screening for colon cancer Screening mammogram for breast cancer Welcome to Medicare preventive visit Chief Complaint Admit Date CC Adult Risk Stratification June 072023 1:48pm pain in ring finger, talk about diabetes June 24, 2024 11:40am cough August 12, 2024 3:42pm Reason for Visit Admit Date Asthma June 24, 2024 11:40am Chronic kidney disease June 24 11:40am Elevated cholesterol June 24, 2024 11:40am Major depression June 24, 2024 11:40am Obesity June 24, 2024 11:40am Primary hypertension June 24, 2024 11:40am Type 2 diabetes mellitus with diabetic p olyneuropathy June 24, 2024 11:40am Type 2 diabetes mellitus with hyperglyce [facility] June 24, 2024 11:40am Acute bronchitis due to other specified organisms August 12, 2024 3:42pm Type 2 diabetes mellitus with hyperglyce [facility] August 12, 2024 3:42pm Chief Complaint Admit Date pain in ring finger, talk about diabetes June 24, 2024 11:40am cough August 12, 2024 3:42pm 3 month f/u September 16, 2024 11: 21am Reason for Visit Admit Date Asthma June 24, 2024 11:40am Chronic kidney disease June 24 11:40am Elevated cholesterol June 24, 2024 11:40am Major depression June 24, 2024 11:40am Obesity June 24, 2024 11:40am Primary hypertension June 24, 2024 11:40am Type 2 diabetes mellitus with diabetic p olyneuropathy June 24, 2024 11:40am Type 2 diabetes mellitus with hyperglyce gloria June 24, 2024 11:40am Acute bronchitis due to other specified organisms August 12, 2024 3:42pm Type 2 diabetes mellitus with hyperglyce gloria August 12, 2024 3:42pm Asthma September 16, 2024 11: 21am Chronic kidney disease September 16, 2024 11:21am Cough September 16, 2024 11: 21am Elevated cholesterol September 16, 2024 11 :21am Major depression September 16, 2024 11: 21am Obesity September 16, 2024 11: 21am Primary hypertension September 16, 2024 11 :21am Type 2 diabetes mellitus with diabetic p olyneuropathy September 16, 2024 11:21am Type 2 diabetes mellitus with hyperglyce gloria September 16, 2024 11:21am Family History No Family History Records Found Relationship Condition Age at Onset Recorded Date/T anshu daughter Multiple sclerosis Unknown natural son Autistic disorder Unknown Disorder of muscle Unknown natural son Diabetes mellitus Unknown daughter Diabetes mellitus Unknown father Diabetes mellitus Unknown Congestive heart failure Unknown Hypertension Unknown Malignant neoplasm of skin Unknown sister Deep vein thrombosis (DVT) Unknown Depression Unknown brother Transient ischemic attack Unknown Not Specified Depression Unknown brother Depression Unknown sister Depression Unknown Relationship Condition Age at Onset Recorded Date/T anshu daughter Multiple sclerosis Unknown Diabetes mellitus Unknown natural son Autistic disorder Unknown Disorder of muscle Unknown father Diabetes mellitus Unknown Congestive heart failure Unknown Hypertension Unknown Malignant neoplasm of skin Unknown Heart disease Unknown sister Deep vein thrombosis (DVT) Unknown Depression Unknown brother Transient ischemic attack Unknown Not Specified Depression Unknown Relationship Condition Age at Onset Recorded Date/T anshu daughter Multiple sclerosis Unknown Diabetes mellitus Unknown son Autistic disorder Unknown Disorder of muscle Unknown father Diabetes mellitus Unknown Congestive heart failure Unknown Hypertension Unknown Malignant neoplasm of skin Unknown Heart disease Unknown sister Deep vein thrombosis (DVT) Unknown Depression Unknown brother Transient ischemic attack Unknown mother Depression Unknown Relationship Condition Age at Onset Recorded Date/T anshu Not Specified Transient ischemic attack Unknown daughter Multiple sclerosis Unknown Diabetes mellitus Unknown son Autistic disorder Unknown Disorder of muscle Unknown father Diabetes mellitus Unknown Congestive heart failure Unknown Hypertension Unknown Malignant neoplasm of skin Unknown Heart disease Unknown Unknown sister Deep vein thrombosis (DVT) Unknown Depression Unknown brother Depression Unknown mother Depression Unknown son Diabetes mellitus Unknown Advance Directives No Advanced Directives Records Found Advance Directive Response Recorded Date/ Time Advance Directives No April 4:42pm Advance Directive Response Recorded Date/ Time Advance Directives No April 3:42pm Summary Purpose Additional Source Comments Care Teams (unrecognized sec tion and content) Team Status: Active Member Role Status Dates Donnie Hebert DO Primary Care Provider Active Team Status: Inactive Member Role Status Dates Donnie Hebert DO Primary Care Provide r, Attending Provider Active Start: December 15, 2023 End: December 15, 2023 Team Status: Active Member Role Status Dates Donnie Hebert DO Primary Care Provide r, Attending Provider Active Start: December 18, 2023 Team Status: Inactive Member Role Status Dates Donnie Hebert DO Primary Care Provide r, Attending Provider Active Start: February 02, 2024 End: February 02, 2024 Team Status: Inactive Member Role Status Dates Donnie Hebert DO Primary Care Provider Active Start: March 05, 2024 End: March 05, 2024 Juanita San APRN Attending Provider Active Start: March 05, 2024 End: March 05, 2024 Team Status: Active Member Role Status Dates Donnie Hebert DO Primary Care Provider Active Start: November 06, 2023 EBONIE Schofield Attending Provider Active Start : November 06, 2023 Team Status: Inactive Member Role Status Dates Donnie Hebert DO Primary Care Provider Active [facility] Attending Provider Active Team Status: Inactive Member Role Status Dates Donnie Hebert DO Primary Care Provide r, Attending Provider Active Start: March 20, 2024 End: March 20, 2024 Team Status: Inactive Member Role Status Dates Donnie Hebert DO Primary Care Provider Active Start: April 11, 2024 End: April 11, 2024 Juanita San APRN Attending Provider Active Start: April 11, 2024 End: April 11, 2024 Team Status: Inactive Member Role Status Dates Donnie Hebert DO Primary Care Provider Active Start: May 15, 2024 End: May 15, 2024 Juanita San APRN Active Star t: May 15, 2024 End: May 15, 2024 Isadora Bui RN Attending Provider Active Start: May 15, 2024 End: May 15, 2024 Room Service Associate Relationship Specialty Start Date End Date Donnie Hebert MD [address] [place] [address] PCP - General Internal Medicine 11/16/23 Room Service Associate Relationship Specialty Start Date End Date Donnie Hebert MD [address] [place] [facility] [id number] PCP - General Internal Medicine 11/16/23 Room Service Associate Relationship Specialty Start Date End Date Donnie Hebert MD [address] [place] [facility] [id number] PCP - General Internal Medicine 11/16/23 Room Service Associate Relationship Specialty Start Date End Date Donnie Hebert MD [address] [place] [facility] [phone] PCP - General Internal Medicine 11/16/23 Room Service Associate Relationship Specialty Start Date End Date Donnie Hebert MD [address] [place] [facility] [address] PCP - General Internal Medicine 11/16/23 Room Service Associate Relationship Specialty Start Date End Date Donnie Hebert DO [address] [facility] [place] [address] PCP - General 02/14/17 Room Service Associate Relationship Specialty Start Date End Date Donnie Hebert DO [address] [facility] [place] [address] PCP - General 02/14/17 Room Service Associate Relationship Specialty Start Date End Date Donnie Hebert DO [address] [facility] [place] [address] PCP - General 02/14/17 Room Service Associate Relationship Specialty Start Date End Date Donnie Hebert DO [address] [facility] [place] [address] PCP - General 02/14/17 Room Service Associate Relationship Specialty Start Date End Date Donnie Hebert DO [address] [place] [address] PCP - General 02/14/17 Room Service Associate Relationship Specialty Start Date End Date Donnie Hebert DO [address] [place] [address] PCP - General 02/14/17 Room Service Associate Relationship Specialty Start Date End Date Donnie Hebert DO [address] [place] [address] PCP - General 02/14/17 Team Status: Active Member Role Status Dates Donnie Hebert DO Primary Care Provide r, Attending Provider Active Start: June 07, 2024 Team Status: Inactive Member Role Status Dates Donnie Hebert DO Primary Care Provide r, Attending Provider Active Start: June 24, 2024 End: June 24, 2024 Team Status: Inactive Member Role Status Dates Donnie Hebert DO Primary Care Provide r, Attending Provider Active Start: August 12, 2024 End: August 12, 2024 Room Service Associate Relationship Specialty Start Date End Date Donnie Hebert MD [address] [place] [phone] PCP - General Internal Medicine 11/16/23 Room Service Associate Relationship Specialty Start Date End Date Donnie Hebert MD [address] [place] [phone] PCP - General Internal Medicine 11/16/23 Team Status: Inactive Member Role Status Dates Donnie Hebert DO Primary Care Provide r, Attending Provider Active Start: September 16, 2024 End: September 16, 2024 Room Service Associate Relationship Specialty Start Date End Date Donnie Hebert DO PCP - General Internal Medicine 11/16/23 Room Service Associate Relationship Specialty Start Date End Date Donnie Hebert DO PCP - General Internal Medicine 11/16/23 Room Service Associate Relationship Specialty Start Date End Date Donnie HebertDO PCP - General Internal Medicine 11/16/23 Room Service Associate Relationship Specialty Start Date End Date SaeDonnieDO [address] [place] [address] PCP - General 02/14/17 Room Service Associate Relationship Specialty Start Date End Date Donnie HebertDO PCP - General Internal Medicine 11/16/23 Room Service Associate Relationship Specialty Start Date End Date Donnie Hebert DO Gurpreet PCP - General Internal Medicine 11/16/23 Goals (unrecognized section and content) Goals may be documented in a n alternate sectionNo InformationNo InformationNo InformationNo InformationNo InformationNo InformationNo InformationNo InformationGoals may be documented in an alternate sectionNo InformationGoals may be documented in an alternate sectionGoals may be documented in an alternate sectionGoals may be documented in an alternate sectionGoals may be documented in an alternate sectionGoals may be documented in an alternate sectionGoals may be documented in an alternate sectionNot on filedocumented as of this encounterNot on filedocumented as of this encounterNot on filedocumented as of this encounterNot on filedocumented as of this encounterNot on filedocumented as of this encounterNot on filedocumented as of this encounterNot on filedocumented as of this encounterNot on filedocumented as of this encounterNot on filedocumented as of this encounterGoals may be documented in an alternate sectionGoals may be documented in an alternate sectionNot on filedocumented as of this encounter No data available for this section No data available for this section INFORMATION SOURCE (unrecogn ized section and content) DATE CREATED AUTHOR 07/07/2022 [facility] DATE CREATED AUTHOR AUTHOR'S ORGANIZ ATION 07/08/2023 [facility] DATE CREATED AUTHOR AUTHOR'S ORGANIZ ATION 01/15/2024 [facility] DATE CREATED AUTHOR AUTHOR'S ORGANIZ ATION 01/15/2024 [facility] DATE CREATED AUTHOR AUTHOR'S ORGANIZ ATION 11/21/2024 [facility] EPIC DATE CREATED AUTHOR AUTHOR'S ORGANIZ ATION 11/24/2024 [facility] DATE CREATED AUTHOR AUTHOR'S ORGANIZ ATION 12/08/2024 [facility] REASON FOR VISIT (unrecogniz ed section and content) Reason Comments Pain Reason Onset Date Comments steroid 06/11/2024 Reason Comments Pain Reason Comments persistent yeast and BV Perineal itching and burning Reason Comments Biopsy Reason Comments Follow-up Reason Comments Pain Reason Comments Pre-op Exam Reason Onset Date Comments PT Prehab 11/06/2024 Dos 11/19 Call Back 11/06/2024 FOR RECORDS PERTAINING TO PATIENTS WHO ARE OR HAVE BEEN ENROLLED IN A CHEMICAL DEPENDENCY/SUBSTANCEABUSE PROGRAM, SOME INFORMATION MAY BE OMITTED. This clinical summary was aggregated from multiple sources. Caution should be exercised in using it in the provision of clinical care. This summary normalizes information from multiple sources, and as a consequence, information in this document may materially change the coding, format and clinical context of patient data. In addition, data may be omitted in some cases. CLINICAL DECISIONS SHOULD BE BASED ON THE PRIMARY CLINICAL RECORDS. [facility] [employer] provides no warranty or guarantee of the accuracy or completeness of information in this document.
[2024-12-16 06:53] LABS: Internal Control Within Normal Limits; Strep A Antigen Screen Negative
--- NOTE | 2024-12-16 08:49 | ED.GENADUL1 ---
HPI HPI - General Adult General Chief complaint: Upper Respiratory Infection Stated complaint: SORE THROAT Time Seen by Provider: 12/16/24 07:56 Source: patient Mode of arrival: walk-in Limitations: no limitations History of Present Illness HPI narrative: Patient is a 64-year-old female who is presenting to the ER today with chief complaint of cough, congestion, bronchitis, laryngitis for the past 2 weeks. Patient went to see an urgent care last week, patient was placed on a 5-day antibiotic which she believes was the Z-Jake and steroids. Patient has no diagnosis of asthma, emphysema or COPD. Patient has been told in the past by Dr. Hebert that she might have asthma, but no further testing or referrals to specialist has been done by Dr. Hebert. Patient is taking no medication gkix-xxy-lfaljzh to help dry up her sinuses. Patient has been told that she has allergies, she is doing nothing hgdf-[id number]-[id number] medication to help treat any of her symptoms. Patient has no abdominal pain nausea or vomiting. Patient states she is coughing more at nighttime and in the morning. Patient is having yellowish productive cough. Z-Jake did not help. Patient has bilateral frontal maxillary sinus pressure. No chest pain, no shortness of breath, no recent trauma, no acute complaints. Patient is diabetic. All systems are negative except as noted/marked. All systems reviewed and otherwise negative. Nurses note and vital signs reviewed and patient is not hypoxic. General: The patient appears well and in no apparent distress. Patient is resting comfortably on cart. Patient is not toxic, lethargic, or listless Skin: Warm, dry, no pallor noted. There is no rash noted. No petechiae, purpura. Head: Normocephalic, atraumatic; patient has mild to moderate bilateral frontal tenderness to palpation. Patient has mild bilateral maxillary tenderness to palpation. Eye: Normal conjunctiva, no drainage, EOMI. PERRL Ears, Nose, Mouth, and Throat: oral mucosa is moist. Patient has no unilateral swelling, no obvious signs of peritonsillar abscess, no posterior pharyngeal petechiae or exudate. Airways patent. Patient tolerating secretions well. No trismus. Patient has clear/yellow drainage noted to the posterior pharynx. Patient has mild cobblestoning to the posterior pharynx. No bilateral anterior or posterior cervical lymphadenopathy. Patient has mild posterior pharyngeal erythema, no unilateral swelling. Nares patent. Mouth without vesicles. Cardiovascular: Regular Rate and Rhythm, no murmur, gallop, rub Respiratory: Patient is in no distress, no accessory muscle use, lungs are clear to auscultation, no wheezing, rales or rhonchi Back: non-tender, no CVA tenderness bilaterally to percussion. No CT LS midline pain GI: Soft, obese, no tenderness Musculoskeletal: Patient has full range of motion of all of the extremities, no motor, sensory, or focal neurological deficits Neurological: A&O x4, normal speech Psychiatric: Cooperative Related Data Home Medications ?Medication ?Instructions ?Recorded ?Confirmed atorvastatin 40 mg tablet 40 mg PO DAILY 12/16/24 12/16/24 bupropion HCl 150 mg 24 hr tablet, 150 mg PO DAILY 12/16/24 12/16/24 extended release clonazepam 1 mg tablet 1 mg PO Q12H PRN anxiety 12/16/24 12/16/24 escitalopram oxalate 10 mg tablet 10 mg PO DAILY 12/16/24 12/16/24 gabapentin 100 mg capsule 100 mg PO DAILY 12/16/24 12/16/24 insulin aspart U-100 100 unit/mL subcut 12/16/24 (3 mL) subcutaneous pen insulin glargine 100 unit/mL (3 unit subcut 12/16/24 mL) subcutaneous pen (Basaglar KwikPen U-100 Insulin) losartan 50 mg tablet 50 mg PO DAILY 12/16/24 12/16/24 Previous Rx's ?Medication ?Instructions ?Recorded albuterol sulfate 90 mcg/actuation 2 inh inhalation Q4H PRN shortness 12/16/24 aerosol inhaler of breath or wheezing 7 days #8.5 grams amoxicillin 875 mg-potassium 1 tab PO Q12H 10 days #20 tabs 12/16/24 clavulanate 125 mg tablet benzonatate 100 mg capsule 200 mg (2 x 100 mg) PO TID PRN 12/16/24 cough #20 caps ylzgykkswxwstzr-rodvlsmmbiyxfvo-EG 10 ml PO Q6H PRN cold symptoms 12/16/24 2 mg-30 mg-10 mg/5 mL oral syrup #200 mL (Bromfed DM) Allergies Allergy/AdvReac Type Severity Reaction Status Date / Time codeine Allergy Unknown Unknown Verified 12/16/24 06:35 morphine Allergy Unknown Unknown Verified 12/16/24 06:35 oxycodone (From Percocet) Allergy Unknown Hives Verified 12/16/24 06:35 PFSH PFSH Social History Little interest or pleasure in doing things: not at all Feeling down, depressed, or hopeless: not at all Exam Constitutional Vital Signs, click to edit/add: Last Vital Signs Temp 98.8 F 12/16/24 06:31 Pulse 94 H 12/16/24 06:31 Resp 18 12/16/24 06:31 BP 162/82 H 12/16/24 06:31 Pulse Ox 96 12/16/24 06:31 O2 Del Method Room Air 12/16/24 06:31 Course Vital Signs Vital signs: Vital Signs Temperature 98.8 F 12/16/24 06:31 Pulse Rate 94 H 12/16/24 06:31 Respiratory Rate 18 12/16/24 06:31 Blood Pressure 162/82 H 12/16/24 06:31 Pulse Oximetry 96 12/16/24 06:31 Oxygen Delivery Method Room Air 12/16/24 06:31 Temperature 98.8 F 12/16/24 06:31 Pulse Rate 94 H 12/16/24 06:31 Respiratory Rate 18 12/16/24 06:31 Blood Pressure 162/82 H 12/16/24 06:31 Pulse Oximetry 96 12/16/24 06:31 Oxygen Delivery Method Room Air 12/16/24 06:31 Medical Decision Making MDM Narrative Medical decision making narrative: Patient arrived at approximately 6:30 AM. Patient was not seen or evaluated by Dr. Vega. Patient was transitioned to [place] at 0700. Rapid strep test was negative. Patient seen and examined: Patient rapid strep test is negative. Differential diagnosis includes but is not limited to: Diagnostics and management: Patient will have laboratory studies Relevant laboratory interpretation: Strep test negative Shared decision making: I discussed with the patient the necessary laboratory findings and radiological findings. Social barriers to healthcare: There are no food insecurities, there is no issue with transportation, there are no insurance barriers. Disposition: I discussed with the patient we discussed her symptoms going on for the past 2 weeks. Patient has faint wheezing only when she is coughing, otherwise her lungs are very clear bilateral equal. Patient been having symptoms for 2 weeks. Patient has evidence of sinusitis. Patient will be placed on Augmentin, also given prescription for Tessalon Perles, Bromfed, and albuterol inhaler. Patient understands the importance of using DayQuil, NyQuil, Flonase amongst all other medications. Patient is to schedule an appointment with her PCP for follow-up with no improvement in 1 week. Patient understands this, no questions at discharge. Lab Data Labs: Lab Results 12/16/24 Range/Units 06:40 Streptococcus Screen Negative Discharge Plan Discharge Chief Complaint: Upper Respiratory Infection Clinical Impression: Acute frontal sinusitis, Bronchitis, Laryngitis Patient Disposition: Home, Self-Care Time of Disposition Decision: 08:44 Condition: Fair Mode of Transportation: Private Vehicle Prescriptions / Home Meds: New benzonatate 100 mg capsule 200 mg PO TID PRN (Reason: cough) Qty: 20 0RF albuterol sulfate 90 mcg/actuation HFA aerosol inhaler 2 inh inhalation Q4H PRN (Reason: shortness of breath or wheezing) 7 Days Qty: 8.5 0RF cozvolcownuwutk-nydevrabq-XD [Bromfed DM] 2-30-10 mg/5 mL syrup 10 ml PO Q6H PRN (Reason: cold symptoms) Qty: 200 0RF amoxicillin-pot clavulanate 875-125 mg tablet 1 tab PO Q12H 10 Days Qty: 20 0RF No Action losartan 50 mg tablet 50 mg PO DAILY atorvastatin 40 mg tablet 40 mg PO DAILY clonazepam 1 mg tablet 1 mg PO Q12H PRN (Reason: anxiety) gabapentin 100 mg capsule 100 mg PO DAILY escitalopram oxalate 10 mg tablet 10 mg PO DAILY insulin aspart U-100 100 unit/mL (3 mL) insulin pen SUBCUT bupropion HCl 150 mg tablet extended release 24 hr 150 mg PO DAILY insulin glargine [Basaglar KwikPen U-100 Insulin] 100 unit/mL (3 mL) insulin pen SUBCUT Print Language: Beninese Instructions: Sinusitis (ED), How to Use a Metered-Dose Inhaler (ED), Acute Bronchitis (ED) Additional Instructions: Call today to make an appointment with your PCP for next Monday or Monday, December 23 or December 24 for reevaluation if no improvement Increase fluids at home, Gatorade, Powerade, or water. You must use all medications listed below to help dry up sinuses, to help improve cough and congestion and laryngitis as discussed at bedside. Use all the medications listed below for the next 10 days while you are on antibiotic to help improve your symptoms. Alternate using DayQuil, NyQuil, and Flonase. Add Mucinex as well as needed. Alternate Tylenol and Motrin every 4 hours to help with fever control, body aches or joint pain. Use rljr-rxb-vlvuvzh vitamin C, vitamin D3, and zinc to help fight infection and help with her immune system. Referrals: Donnie Hebert DO [Primary Care Provider, Internal Medicine] - 1 week Discharge Date/Time: 12/16/24 09:10
== END 2024-12-16 09:10 | disposition home or self-care (01) ==
PROVIDERS: Emergency Provider Internal Medicine; PCP Internal Medicine
DX: J01.10 Acute frontal sinusitis, unspecified (principal); J40 Bronchitis, not specified as acute or chronic; J04.0 Acute laryngitis; E11.9 Type 2 diabetes mellitus without complications
CPT/HCPCS: 87070; 87880; 99283

== ENCOUNTER 2025-01-22 11:13 | Outpatient (OUT) | payer MEDICARE, OTHER, SELFPAY ==
--- OUTSIDE RECORDS SUMMARY | 2025-01-17 10:25 | XMS_ITS | Continuity of Care Document ---
Author Organization [facility] Address [address] [place] [address] Phone Care Team Providers Care Log Getter Name Role Phone AnupDonnie Primary Care Provider Donnie Hebert DO Attending Provider Jerod Vega MD Attending Provider Care Teams Patient Care Team Team Status: Active Member Role Status Dates Donnie Hebert DO Primary Care Provider Active Visit Care Team Team Status: Inactive Member Role Status Dates Donnie Hebert DO Primary Care Provider Active Start: November 08, 2024 End: November 08, 2024 Donnie Hebert DO Attending Provider Active Sta rt: November 08, 2024 End: November 08, 2024 Visit Care Team Team Status: Active Member Role Status Dates Donnie Hebert DO Primary Care Provider Active Start: December 16, 2024 Jerod Vega MD Attending Provider Active St art: December 16, 2024 Visit Care Team Team Status: Inactive Member Role Status Dates Donnie Hebert DO Primary Care Provider Active Start: December 24, 2024 End: December 24, 2024 Donnie Hebert DO Attending Provider Active Sta rt: December 24, 2024 End: December 24, 2024 Patient Care Team Team Status: Inactive Member Role Status Dates Donnie Hebert DO Primary Care Provider Active Start: January 17, 2025 End: January 17, 2025 Donnie Hebert DO Attending Provider Active Sta rt: January 17, 2025 End: January 17, 2025 Chief Complaint and Reason for Visit Chief Complaint Admit Date Persistent cough November 08, 2024 2:06p m Congestion/diabetic discussion December 24, 2024 11:24am Wellness January 17, 2025 1:27 pm Reason for Visit Admit Date Nummular eczematous dermatitis November 08, 2024 2:06pm Type 2 diabetes mellitus with diabetic p olyneuropathy November 08, 2024 2:06pm Cough after eating November 08, 2024 2:06p m Asthma December 24, 2024 11:24 am Type 2 diabetes mellitus with hyperglyce gloria December 24, 2024 11:24am Acute bronchitis due to other specified organisms December 24, 2024 11:24am Chronic kidney disease January 17, 2025 1 :27pm Elevated cholesterol January 17, 2025 1:2 7pm Major depression January 17, 2025 1:27 pm Obesity January 17, 2025 1:27 pm Primary hypertension January 17, 2025 1:2 7pm Type 2 diabetes mellitus with diabetic p olyneuropathy January 17, 2025 1:27pm Type 2 diabetes mellitus with hyperglyce gloria January 17, 2025 1:27pm Medicare annual wellness visit, initial January 17, 2025 1:27pm Mammogram declined January 17, 2025 1:27 pm Allergies, Adverse Reactions, Alerts Allergen Type Severity Reaction Last Updated Verified Status acetaminophen Allergy Unknown Hives, itching January 172024 1:34pm Yes Active codeine Allergy Unknown Unknown Reaction December 1:34pm Yes Active morphine Allergy Unknown Numbness face January 17, 2025 1:34pm Yes Active oxycodone Allergy Unknown Hives, itching January 17, 2025 1:34pm Yes Active tramadol Allergy Unknown Unknown Reaction December 1:34pm Yes Active venlafaxine Allergy Unknown Unknown Reaction January 172024 1:34pm Yes Active Social History Smoking Status Status Start Date End Date Date of Observa tion Never smoked tobacco (finding) March 05, 2024 3:30pm Observation Status Observation Response Date of Response Legal Sex Female (finding) Sex Assigned At Female 1960 Family History Relationship Condition Age at Onset Recorded Date/T anshu Not Specified Transient ischemic attack Unknown daughter Multiple sclerosis Unknown Diabetes mellitus Unknown son Autistic disorder Unknown Disorder of muscle Unknown father Diabetes mellitus Unknown Congestive heart failure Unknown Hypertension Unknown Malignant neoplasm of skin Unknown Heart disease Unknown Unknown sister Deep vein thrombosis (DVT) Unknown Depression Unknown Diabetes mellitus Unknown brother Depression Unknown mother Depression Unknown son Diabetes mellitus Unknown Problems Active Problems Medical Problem Onset Date Status Chronic venous insufficiency of lower extremity Unknown Active Major depression Unknown Active CHELSEA (generalized anxiety disorder) Unknown Active Type 2 diabetes mellitus with hyperglycemia Unkn own Active Type 2 diabetes mellitus with diabetic polyneuro dinorah Unknown Active Nummular eczematous dermatitis Unknown A ctive Elevated cholesterol Unknown Active Cough Unknown Active Tear of medial meniscus of left knee, current Un known Active Chronic kidney disease Unknown Active Preop exam for internal medicine Unknown Active Primary hypertension Unknown Active Vitamin D deficiency, unspecified Unknown Active Obesity Unknown Active Asthma Unknown Active Medications Medication Status Dose Units Route Directions Qty Days St art Date Stop Date End Date Instructions Adherence Insulin Glargine (Lantus Solostar U-100 Insulin) 100 unit/mL (3 mL) insulin pen Discont inued 25 UNIT SUBCUT Twice daily September 19, [facility] Escitalopra m Oxalate 10 mg tablet Discont inued 0 .ROUTE .COMPLEX September 22, 2023 1:01pm [facility] 2023 3:48p m TAKE 1 TABLET BY MOUTH EVERY DAY FOR 90 DAYS Bupropion Hcl 150 mg tablet extended release 24 hr Discont inued 0 .ROUTE .COMPLEX October 06, 2023 1:26pm [facility] 2023 3:48p m TAKE 1 TABLET BY MOUTH EVERY DAY FOR 90 DAYS Dapaglifloz in Propanediol (Farxiga) 10 mg tablet Discont inued 0 .ROUTE .COMPLEX November 07, 2023 1:08pm December 15, 2023 12:38 pm TAKE 1 TABLET BY MOUTH EVERY DAY Tirzepatide (Mounjaro) 2.5 mg/0.5 mL pen injector Discont inued 2.5 MG SUBCUT every week 08 23November 07, 2023 12:00a m December 05, 2023 1:37p m Tirzepatide 5 mg/0.5 mL pen injector Discont inued 5 MG SUBCUT every week 2 December 05, 2023 1:37pm December 15, 2023 12:13 pm Atorvastati n (Lipitor) 40 mg tablet Discont inued 40 MG PO Daily December 11, 2023 4:41pm October 13, 2024 12:27 pm Empaglifloz in (Jardiance) 10 mg tablet Discont inued 10 MG PO Daily 30 December 18, 2023 12:00a m December 20, 2023 12:51 pm Semaglutide (Rybelsus) 3 mg tablet Discont inued 3 MG PO Daily 30 December 20, 2023 12:00a m January 03, 2024 1:05p m Empaglifloz in (Jardiance) 10 mg tablet Discont inued 10 MG PO Daily 30 December 20, 2023 12:50p m December 20, 2023 1:03p m Empaglifloz in (Jardiance) 10 mg tablet Discont inued 10 MG PO Daily December 20, 2023 1:03pm January 03, 2024 1:04p m Clonazepam 1 mg tablet Discont inued 1 MG PO Twice daily 60 December 27, 2023 8:44am Septe mber 2023 3:24p m Glimepiride 1 mg tablet Discont inued 1 MG PO Daily January 03, 2024 12:00a m Augus t 2023 3:25p m Glimepiride 1 mg tablet Discont inued 0 .ROUTE .COMPLEX 90 January 26, 2024 3:25pm Septe mber 2023 3:41p m TAKE 1 TABLET BY MOUTH DAILY Albuterol Sulfate 90 mcg/actuati on HFA aerosol inhaler Discont inued 0 .ROUTE .COMPLEX 8.5 2023 8:45am Octob er 2023 2:16p m INHALE 2 PUFFS EVERY 6 HOURS NEEDED FOR SHORTNESS OF BREATH OR WHEEZING Losartan 50 mg tablet Discont inued 50 MG PO Daily 30 2023 12:00a m Septe mber 2023 9:03p m Insulin Aspart U-100 100 unit/mL (3 mL) insulin pen Discont inued 1 slidin g scale dose SUBCUT Use as Directed 60 2023 12:00a m September 16, 2024 12:[address] Fiasp.AC/HS ICR 1:10 and ISS 1:30- Expect up to 70 u daily Blood-Gluco se Sensor (Freestyle Eloy 3 Plus Sensor) device Discont inued 0 .Route 2023 12:00a m Septe mber 2023 1:59p m As directed Blood-Gluco se Sensor (Freestyle Eloy 3 Plus Sensor) device Discont inued 0 .Route 6 2023 1:57pm Febr2024 6:28p m As directed change every 15 days Insulin Glargine (Basaglar Kwikpen U-100 Insulin) 100 unit/mL (3 mL) insulin pen Discont inued 26 UNIT SUBCUT Every evening 30 2023 12:00a m Octob er 2023 2:22p m Titrate to 40 u once daily, has written instructions Losartan 50 mg tablet Active 0 .ROUTE .COMPLEX 30 2023 9:03pm TAKE 1 TABLET BY MOUTH EVERY DAY Complies with drug therapy Bupropion Hcl 150 mg tablet extended release 24 hr Discont inued 0 .ROUTE .COMPLEX 2023 1:55pm September 16, 2024 6:50a m TAKE 1 TABLET BY MOUTH EVERY DAY FOR 90 DAYS Escitalopra m Oxalate 10 mg tablet Discont inued 0 .ROUTE .COMPLEX 2023 1:55pm September 01, 2024 8:57a m TAKE 1 TABLET BY MOUTH EVERY DAY FOR 90 DAYS Clonazepam 1 mg tablet Discont inued 1 MG PO Twice daily 60 30 r 2023 5:15pm 2024 8:54a m start 03/27 Clonazepam 1 mg tablet Discont inued 1 MG PO Twice daily as needed for anxiety 60 30 2024 8:53am 2024 10:54 pm Clonazepam 1 mg tablet Discont inued 1 MG PO Twice daily as needed for anxiety 60 30 2024 10:53p m October 03, 2024 1:34p m Insulin Glargine (Basaglar Kwikpen U-100 Insulin) 100 unit/mL (3 mL) insulin pen Discont inued 26 UNIT SUBCUT Twice daily 2024 2:03pm u 2024 2:11p m Insulin Glargine (Basaglar Kwikpen U-100 Insulin) 100 unit/mL (3 mL) insulin pen Discont inued 26 UNIT SUBCUT Twice daily 60 2024 2:11pm September 16, 2024 12:14 pm Blood-Gluco se Sensor (Freestyle Eloy 3 Sensor) device Discont inued 0 .ROUTE .MEDSUPPLY 1 2024 4:06pm Febru 2024 4:07p m As directed Blood-Gluco se,Satellite Specialist ,Cont (Freestyle Eloy 3 [place]) misc Discont inued 0 .ROUTE .MEDSUPPLY 2024 4:06pm Febru 2024 4:07p m As directed Blood-Gluco se Sensor (Freestyle Eloy 3 Sensor) device Discont inued 0 .ROUTE .MEDSUPPLY 2024 4:07pm October 29, 2024 4:39p m As directed Blood-Gluco se,Satellite Specialist ,Cont (Freestyle Eloy 3 [place]) misc Active 0 .ROUTE .MEDSUPPLY 2024 4:07pm As directed Escitalopra m Oxalate 10 mg tablet Active 0 .ROUTE .COMPLEX September 01, 2024 8:57am TAKE 1 TABLET BY MOUTH EVERY DAY FOR 90 DAYS Complies with drug therapy Bupropion Hcl 150 mg tablet extended release 24 hr Active 0 .ROUTE .COMPLEX September 16, 2024 6:50am TAKE 1 TABLET BY MOUTH EVERY DAY FOR 90 DAYS Complies with drug therapy Clonazepam 1 mg tablet Discont inued 1 MG PO Twice daily as needed for anxiety 60 October 03, 2024 1:33pm January 06, 2025 11:00 pm Atorvastati n 40 mg tablet Active 0 .ROUTE .COMPLEX October 13, 2024 12:27p m TAKE 1 TABLET BY MOUTH EVERY DAY FOR HYPERLIPIDEMI A Complies with drug therapy Blood-Gluco se Sensor (Freestyle Eloy 3 Sensor) device Active 0 .ROUTE .MEDSUPPLY 1 October 29, 2024 4:39pm As directed Gabapentin 100 mg capsule Discont inued 0 .ROUTE .COMPLEX December 09, 2024 7:34am December 24, 2024 5:52p m TAKE 1 TO 3 CAPSULES BY MOUTH DAILY AT BEDTIME FOR 30 DAYS Insulin Aspart (Niacinamid e) (Fiasp Flextouch U-100 Insulin) 100 unit/mL (3 mL) insulin pen Discont inued 0 SUBCUT Use as Directed 60 90 December 17, 2024 12:37p m December 19, 2024 5:21p m ICR 1:10, ISS 1:30 QID subcutaneousl y use as directed; Corrective scale AC/HS 1:50, QID. Expect up to 70u per day Insulin Aspart U-100 (Novolog Flexpen U-100 Insulin) 100 unit/mL (3 mL) insulin pen Discont inued 1 slidin g scale dose SUBCUT Use as Directed 60 90 December 19, 2024 12:00a m January 17, 2025 2:03p m ICR 1:10, ISS 1:30 QID subcutaneousl y use as directed; Corrective scale AC/HS 1:50, QID. Expect up to 70u per day Insulin Glargine (Lantus Solostar U-100 Insulin) 100 unit/mL (3 mL) insulin pen Discont inued 30 UNIT SUBCUT Daily 60 90 December 25, 2024 5:02pm December 29, 2024 7:43p m Insulin Degludec 100 unit/mL (3 mL) insulin pen Discont inued 30 UNIT SUBCUT Daily 30 December 29, 2024 12:00a m January 01, 2025 5:49p m Insulin Degludec 100 unit/mL (3 mL) insulin pen Active 30 UNIT SUBCUT Twice daily 54 January 01, 2025 5:48pm Complies with drug therapy Clonazepam 1 mg tablet Active 1 MG PO Twice daily 60 30 January 06, 2025 10:59p m Complies with drug therapy Atorvastati n (Lipitor) 40 mg Tablet Discont inued 40 MG PO Daily Novemb er 2018 1:00am December 11, 2023 4:41p m Clonazepam 1 mg tablet Discont inued 0.5 MG PO Every morning Novemb er 2018 1:00am September 06, 2023 1:07p m Clonazepam 1 mg tablet Discont inued 1.5 MG PO Daily at bedtime Novemb er 2018 1:00am September 06, 2023 1:08p m Famotidine (Pepcid) 20 mg Tablet Discont inued 20 MG PO Twice daily [facility] 2018 1:00am 2023 3:24p m Losartan 25 mg Tablet Discont inued 25 MG PO Daily [facility] 2018 1:00am December 15, 2023 12:13 pm Pioglitazon e (Actos) 30 mg Tablet Discont inued 30 MG PO Daily [facility] 2018 1:00am September 06, 2023 1:10p m Duloxetine (Cymbalta) 60 mg Capsule,Del ayed Release(Dr/ Ec) Discont inued 60 MG PO Daily [facility] 2018 1:00am September 06, 2023 1:09p m Insulin Glargine 100 unit/mL (3 mL) insulin pen Discont inued 35 UNIT SUBCUT Twice daily [facility] 2018 1:00am September 06, 2023 1:09p m Liraglutide 0.6 mg/0.1 mL (18 mg/3 mL) pen injector Discont inued 0.6 MG SUBCUT Daily [facility] 2018 1:00am September 06, 2023 1:11p m Dapaglifloz in Propanediol (Farxiga) 5 mg Tablet Discont inued 5 MG PO Daily [facility] 2018 1:00am September 06, 2023 1:11p m Dapaglifloz in Propanediol (Farxiga) 5 mg tablet Discont inued 10 MG PO Daily September 06, 2023 1:08pm November 07, 2023 1:08p m Liraglutide 0.6 mg/0.1 mL (18 mg/3 mL) pen injector Discont inued 1.8 MG SUBCUT Daily September 06, 2023 1:09pm November 06, 2023 1:15p m Famotidine (Pepcid) 20 mg tablet Discont inued 20 MG PO Daily as needed for indigestion 2023 3:22pm September 16, 2024 11:44 am Clonazepam 2 mg tablet Discont inued 2 MG PO Daily at bedtime September 06, 2023 12:00a m December 15, 2023 12:09 pm administer 30 minutes before bedtime Fluticasone Furoate-Bry anterol (Breo Ellipta) 200-25 mcg/dose blister with device Discont inued 1 PUFF INHALA TION Daily September 06, 2023 12:00a m December 15, 2023 12:12 pm FreeTextSi puff Inhalation Once a day; Note: Source Status: Taking; Provider: Anup Fields ( ) Bupropion Hcl 150 mg tablet extended release 24 hr Discont inued 150 MG PO Daily September 06, 2023 12:00a m October 06, 2023 1:26p m Escitalopra m Oxalate 10 mg tablet Discont inued 10 MG PO Daily September 06, 2023 12:00a m September 22, 2023 1:01p m Clonazepam (Klonopin) 0.5 mg tablet Discont inued 0.5 MG PO Daily at bedtime December 15, 2023 12:00a m December 27, 2023 8:46a m administer 30 minutes before bedtime Losartan (Cozaar) 50 mg tablet Discont inued 50 MG PO Daily December 15, 2023 12:00a m [facility] 2023 3:23p m Clobetasol 0.05 % cream Discont inued 1 APPLIC TOPICA L Twice daily December 15, 2023 12:00a m September 16, 2024 11:43 am Melatonin 5 mg tablet Discont inued 5 MG PO Daily at bedtime as needed December 15, 2023 12:00a m September 16, 2024 11:44 am Liraglutide (Victoza 2-Jake) 0.6 mg/0.1 mL (18 mg/3 mL) pen injector Discont inued 0 SUBCUT Daily 12 23December 17, 2023 12:00a m December 20, 2023 11:42 am inject 0.6mg subcutaneousl y daily x 7 days then increase to 1.2mg weekly. Blood-Gluco se Sensor (Freestyle Eloy 3 Sensor) device Discont inued 0 .ROUTE .MEDSUPPLY December 17, 2023 12:00a m [facility] 2023 11:19 am Use to test home BS qid Clonazepam 1 mg tablet Discont inued 0.5 MG PO Twice daily 2023 3:20pm Octob er 2023 5:16p m Insulin Glargine (Lantus Solostar U-100 Insulin) 100 unit/mL (3 mL) insulin pen Discont inued 26 UNIT SUBCUT Twice daily 2023 3:22pm [facility] 2023 11:19 am Clobetasol 0.05 % cream Discont inued 1 APPLIC TOPICA L Daily as needed 2023 12:00a m [facility] 2023 3:47p m Glimepiride 1 mg tablet Discont inued 1 MG PO Twice daily 2023 3:41pm [facility] 2023 11:21 am On Hold: therapy change Bupropion Hcl 150 mg tablet extended release 24 hr Discont inued 150 MG PO Daily 2023 3:47pm [facility] 2023 1:55p m Escitalopra m Oxalate 10 mg tablet Discont inued 10 MG PO Daily 2023 3:48pm [facility] 2023 1:55p m Insulin Aspart (Niacinamid e) (Fiasp Flextouch U-100 Insulin) 100 unit/mL (3 mL) insulin pen Discont inued 0 SUBCUT Use as Directed 60 90 2023 12:00a m December 17, 2024 12:38 pm ICR 1:10, ISS 1:30 QID subcutaneousl y use as directed; Corrective scale AC/HS 1:50, QID. Expect up to 70u per day Pen Needle, Diabetic (Easy Comfort Pen [place]) 31 gauge x 5/16 needle Discont inued 0 .Route 2023 12:00a m [facility] 2023 12:07 pm As directed Pen Needle, Diabetic (Easy Comfort Pen [place]) 31 gauge x 5/16 needle Active 0 .Route 500 2023 12:05p m As directed use 5-6 times daily insulin injections Albuterol Sulfate 90 mcg/actuati on HFA aerosol inhaler Discont inued 2 PUFF INHALA TION Every 6 hours as needed for shortness of breath or wheezing 8.5 30 [place] 9th, 2024 12:00a m Septe mber 2023 8:45a m Doxycycline Hyclate 100 mg capsule Discont inued 100 MG PO Twice daily February 02, 2024 12:00a m Octob er 2023 2:18p m Insulin Glargine (Basaglar Kwikpen U-100 Insulin) 100 unit/mL (3 mL) insulin pen Discont inued 26 UNIT SUBCUT Twice daily Octobe r 2023 2:20pm Octob er 2023 3:23p m Titrate to 40 u once daily, has written instructions Duloxetine 60 mg capsule,del ayed release(DR/ EC) Discont inued 60 MG PO Daily Octobe r 2023 12:00a m September 16, 2024 11:44 am Insulin Glargine (Basaglar Kwikpen U-100 Insulin) 100 unit/mL (3 mL) insulin pen Discont inued 50 UNIT SUBCUT Daily Octobe r 2023 3:22pm Febru erasmo2024 2:04p m 26 u am and 24 u PM/ Can titrate to 60 u TDD, has written instructions Doxycycline Hyclate 100 mg capsule Discont inued 100 MG PO Twice daily 2024 1:00am September 16, 2024 11:43 am Gabapentin 100 mg capsule Discont inued 0 PO Daily at bedtime November 08, 2024 12:00a m December 09, 2024 7:34a m 100-300mg orally daily at bedtime; Liraglutide (Victoza 3-Jake) 0.6 mg/0.1 mL (18 mg/3 mL) pen injector Discont inued 0 SUBCUT .COMPLEX November 06, 2023 12:00a m November 07, 2023 3:44p m inject 0.6mg subcutaneousl y once daily x 7 days; then 1.2mg daily, not to exceed 1.8mg/day subcut Liraglutide 0.6 mg/0.1 mL (18 mg/3 mL) pen injector Discont inued 1.8 MG SUBCUT Daily 03 25November 06, 2023 1:14pm December 15, 2023 12:13 pm Glimepiride 1 mg tablet Discont inued 1 MG PO Daily 30 30 Septem jocelyn 2023 12:00a m Octob er 2023 3:19p m Blood-Gluco se Sensor (Freestyle Eloy 3 Sensor) device Discont inued 0 .ROUTE .MEDSUPPLY 1 Decemb er 2023 1:00am Febru erasmo 2024 6:24p m Use to test home BS 4-6x daily. Blood-Gluco se,Satellite Specialist ,Cont (Freestyle Eloy 3 [place]) misc Discont inued 0 .ROUTE .MEDSUPPLY 1 ua ry 2024 1:00am Febru erasmo2024 4:06p m As directed Blood-Gluco se Sensor (Freestyle Eloy 3 Sensor) device Discont inued 0 .ROUTE .MEDSUPPLY 1 ua ry 2024 1:00am Febru erasmo 2024 6:28p m As directed Blood-Gluco se Sensor (Freestyle Eloy 3 Sensor) device Discont inued 0 .ROUTE .MEDSUPPLY 1 ua ry 2024 6:24pm Febru erasmo 2024 6:29p m As directed Blood-Gluco se Sensor (Freestyle Eloy 3 Sensor) device Discont inued 0 .ROUTE .MEDSUPPLY 1 ua 2024 6:28pm Febru erasmo 2024 4:06p m As directed Insulin Glargine (Lantus Solostar U-100 Insulin) 100 unit/mL (3 mL) insulin pen Discont inued 30 UNIT SUBCUT Daily 60 September 16, 2024 12:00a m December 25, 2024 5:03p m Insulin Aspart U-100 100 unit/mL (3 mL) insulin pen Discont inued 1 slidin g scale dose SUBCUT Use as Directed September 16, 2024 12:15p m January 17, 2025 1:50p m In place of Fiasp.AC/HS ICR 1:10 and ISS 1:30- Expect up to 70 u daily Insulin Aspart U-100 (Novolog Flexpen U-100 Insulin) 100 unit/mL (3 mL) insulin pen Active 1 slidin g scale dose SUBCUT Use as Directed 60 90 January 17, 2025 2:02pm Complies with drug therapy Gabapentin 300 mg capsule Active 300 MG PO Daily at bedtime 30 December 24, 2024 12:00p m Complies with drug therapy Immunizations Immunization Event Date Not Given Reason Dose Number Manager Coding Lot Number Vaccine Information Statement (VIS) Detail Administration Location DTap, unspecified January 15, 2019 influenza, unspecified formulation March 30, 2018 Pneumococcal Polysacc. Vaccine, 23 valent April 12, 2013 Tetanus, Diphtheria adult, 5 Lf pres free abs March 14, 2012 Tetanus, Diphtheria adult, 5 Lf pres free abs April 12, 2013 Relevant Diagnostic Tests and/or Laboratory Data Laboratory Results Test Collection Date/Time Result Date/Time Result Interpretation Reference Range Result Comment Performing Site Group A Streptococc us Screen December 16, 2024 6:40am December 16, 2024 6:40am Negative Bedside Hemoglobin A1c December 24, 2024 11:42am December 24, 2024 11:46am 8.5 % Vital Signs Vital Reading Result Reference Range Collection Date/Time Height 69 [in_i] November 08, 2024 2:17pm Weight 116.62 kg November 08, 2024 2:17pm Heart Rate 81 /min 60-100 November 08, 2024 2:17pm Respiratory rate 12 /min -November 08, 2 025 2:17pm BP Systolic 143 mm[Hg] 100-140 November 08, 2024 2:17pm BP Diastolic 81 mm[Hg] 60-100 November 08, 2024 2:17pm BMI (Body Mass Index) 38.0 kg/m2 November 082024 2:17pm Height 69 [in_i] December 24, 2024 11:36am Weight 115.83 kg December 24, 2024 11:36am Heart Rate 84 /min 60-100 December 24, 2024 11:36am Respiratory rate 12 /min -December 24, 2 025 11:36am BP Systolic 139 mm[Hg] 100-140 December 24, 2024 11:36am BP Diastolic 76 mm[Hg] 60-100 December 24, 2024 11:36am BMI (Body Mass Index) 37.7 kg/m2 December 242024 11:36am Height 69 [in_i] January 17, 2025 1:38pm Weight 117.65 kg January 17, 2025 1:38pm Heart Rate 81 /min 60-100 January 17, 2025 1:38pm Respiratory rate 12 /min -January 17, 2025 1:38pm BP Systolic 153 mm[Hg] 100-140 January 17, 2025 1:38pm BP Diastolic 82 mm[Hg] 60-100 January 17, 2025 1:38pm BMI (Body Mass Index) 38.2 kg/m2 December 252024 1:38pm Advance Directives Advance Directive Response Recorded Date/ Time Advance Directives No April 4:42pm Insurance Providers Guarantor Patricia Barbour Address [address] [facility] [address] Contact Info. Home Phone: Payer Policy Id Subscriber's Name Subscriber Id Effective Date Expiration Date [employer]to [employer] [id number] Patricia Barbour [id number] [facility] [id number] Patricia Barbour [id number] [facility] [id number] Suman Barbour [id number] Encounters Encounter Location(s) Arrival/Admit Date Discharge/Depart Date Provider(s) Departed Physician/Prov ider Office Visit -[facility] November 08, 2024 2:06pm November 08, 2024 3:10pm Donnie Hebert DO Non-patient / Non-visit -[facility] December 16, 2024 6:40am Jerod Vega MD Departed Physician/Prov ider Office Visit -[facility] December 24, 2024 11:24am December 24, 2024 12:17pm Donnie Hebert DO Departed Physician/Prov ider Office Visit -[facility] January 17, 2025 1:27pm January 17, 2025 2:24pm Donnie Hebert DO Recent Diagnosis Onset Date Admit Date Nummular eczematous dermatitis Unknown M 2024 2:06pm Type 2 diabetes mellitus wit h diabetic polyneuropathy Unknown November 08, 2024 2:06pm Cough after eating Unknown November 08 2:06pm Asthma Unknown December 24, 2024 1 1:24am Type 2 diabetes mellitus with hyperglycemia Unkn own December 24, 2024 11:24am Acute bronchitis due to other specified organism s Unknown December 24, 2024 11:24am Chronic kidney disease Unknown December 1:27pm Elevated cholesterol Unknown January 17, 2025 1:27pm Major depression Unknown January 17, 2025 1:27pm Obesity Unknown January 17, 2025 1:27pm Primary hypertension Unknown January 17, 2025 1:27pm Type 2 diabetes mellitus wit h diabetic polyneuropathy Unknown January 17, 2025 1:27pm Type 2 diabetes mellitus with hyperglycemia Unkn own January 17, 2025 1:27pm Medicare annual wellness visit, initial Unknown January 17, 2025 1:27pm Mammogram declined Unknown January 17 1:27pm Assessments Diagnosis Onset Date Resolution Status Admit Date Nummular eczematous dermatitis acute November 08, 2024 2:06pm Type 2 diabetes mellitus wit h diabetic polyneuropathy acute October 2:06pm Cough after eating deleted November 082024 2:06pm Asthma acute December 24, 2024 11:24am Type 2 diabetes mellitus wit h hyperglycemia acute December 24, 2024 11:24am Acute bronchitis due to othe r specified organisms deleted December 24 11:24am Chronic kidney disease acute Ju 2024 1:27pm Elevated cholesterol acute January 17, 2025 1:27pm Major depression acute December 1:27pm Obesity acute January 17 1:27pm Primary hypertension acute January 17, 2025 1:27pm Type 2 diabetes mellitus wit h diabetic polyneuropathy acute December 1:27pm Type 2 diabetes mellitus wit h hyperglycemia acute January 17, 2025 1:27pm Medicare annual wellness vis it, initial noneactive January 17, 2025 1:27pm Mammogram declined noneactive December 252024 1:27pm Plan of Treatment Author Donnie Hebert [facility] Authored November 08, 2024 3:02p m I have instructed the patien t to inspect their feet daily for cuts and calluses. I have recommended shoes and inserts to prevent callus formation. I have reviewed fall precautions. Instructed to work on lowering her BS Instructed to start Gabapentin 100mg q HS, increase 100mg q HS every 3 days as needed - hold at 300mg and update office Reassured, not infectious or cancer Topical steroids as needed Monitor for now Persistent cough since serious COVID infection Increased w/ URI in Jun-Jul Now continues, nonproductive and not associated w/ CP, palpitations, SOB or lightheadedness Has some allergy symptoms and GERD symptoms Instructed to use Claritin, Flonase and Pepcid CXR normal - 08/2024 Author Donnie Hebert [facility] Authored January 17, 2025 2:19 pm I have instructed this patie nt to follow a comprehensive diabetic treatment plan. I have also instructed them to check their feet daily for calluses and nonhealing ulcers. I have instructed them to have a yearly dilated eye examination. I have reviewed their treatment goals: SBP less than 130, LDL less than 100, FBS less than 140, A1C less than 7%. I have instructed them to maintain a home BS log and bring the results to each of their office visits for review. I have explained the importance of routine monitoring of their A1C, Microalbumin and Lipids. I have explained the benefits of well controlled diabetes in preventing micro and macrovascular complications. She had established care w/ [facility] - transitioned to basal, bolus insulin - the staff spent significant amount of time w/ patient education However, the patient isn't willing to follow the diabetic's care plan and will be returning care to me. Also discussed adding Victoza (if new insurance plan allows) or Rybelsus. Encouraged lifestyle changes - weight continues to be a problem, which she states is due to her knee pain resulting in a sedentary lifestyle - instructed to reduce calories, exercise w/ goal to lose weight Instructed to record daily AC BS and insulin dose. Instructed to take insulin when sitting down to eat so as to avoid hypoglycemic episodes from skipping meals after administering insulin I have instructed the patient to inspect their feet daily for cuts and calluses. I have recommended shoes and inserts to prevent callus formation. I have reviewed fall precautions. Instructed to stop Duloxetine due to interaction w/ antidepressants. Discussed use of Gabapentin but not necessary at this time. I instructed this patient on the benefits of adequate control of hypertension and diabetes, if appropriate. I have also instructed them to avoid use of NSAIDs due to the adverse effects on renal function. I instructed them on adequate fluid balance and to consume at least 48 oz of fluids daily. I also instructed them to monitor for an unexplained increase in weight and lower extremity edema. They have been instructed to notify the office for any changes or concerns. Continue Losartan without interruption Monitor urine microalbumin/creatine ratio I have instructed this patient to consume a healthy, low-fat, low-salt diet. I have also encouraged them to continue exercise with weight loss to achieve/maintain a BMI < 30. I have instructed this patient on the correct procedure for obtaining home BP measurements: - rest for 5 minutes w/o talking. - positioned w/ feet on floor and arms supported. - average best 2/3 readings w/ goal < 135/85. - update office w/ home readings in 2 weeks. Continue Losartan without interruption Anticipate continued improvement in SBP w/ lifestyle changes and weight loss I have instructed this patient on a low fat, high fiber diet and exercise. I have discussed the primary and secondary prevention benefits attributed to lowering LDL cholesterol. I have also discussed the medical treatment of elevated cholesterol, which is based on the 10 year ASCVD risk. Continue Atorvastatin without interruption Instructed on a healthy diet and exercise routine. Instructed to continue medical treatment w/o interruption. Instructed to avoid abrupt d/c of medication due to w/d symptoms. Duloxetine, Escitalopram and Bupropion all on her list - instructed to stop Duloxetine I have instructed this patient on a low-fat, high-fiber diet. I have also instructed them to reduce calories, portions sizes, sweet drinks and snacks. I have also recommended they exercise for 30 minutes, 3-5 times weekly. They are aware of the comorbid conditions associated with excessive weight: Diabetes, HTN, Hyperlipidemia, CAD and arthritis. She continues to gain weight Would benefit from restarting GLP1 I have instructed this patient on the recommended lifestyle changes, which includes a low fat, high fiber diet along with a regular exercise routine. I have also reviewed the recommended age-appropriate preventive testing for this patient. I have also reviewed the recommended vaccines for their age and risk factors. I have instructed this patient on monthly SBE and recommended yearly mammograms. Author Donnie [facility] Authored December 24, 2024 12:31 pm Her latest A1C = 8.5% w/ ave rage BS 190-200 I have instructed this patient to follow a comprehensive diabetic treatment plan. I have also instructed them to check their feet daily for calluses and nonhealing ulcers. I have instructed them to have a yearly dilated eye examination. I have reviewed their treatment goals: SBP less than 130, LDL less than 100, FBS less than 140, A1C less than 7%. I have instructed them to maintain a home BS log and bring the results to each of their office visits for review. I have explained the importance of routine monitoring of their A1C, Microalbumin and Lipids. I have explained the benefits of well controlled diabetes in preventing micro and macrovascular complications. Completed antibiotics x 2 and course of steroids. I have instructed this patient to use Robitussin or Mucinex for cough, saline and Flonase NS for congestion and Tylenol for pain and fever. Report to the ER if develop any CP or SOB BETH as needed for cough Future Tests Future scheduled test information is unavailable Pending Tests Test Name Ordered Date Scheduled Date Comprehensive Metabolic Panel January 17, 2025 2: 14pm Future Visits Future appointment information is unavailable Referrals to Other Providers Referral information is unavailable Future Procedures Procedure Name Ordered Date Scheduled Date Complete Blood Count Auto Diff January 17, 2025 2 :14pm Lipid Panel January 17, 2025 2:14pm MicroAlb Creat Ratio,U January 17, 2025 2:14pm Future Medications Future medication information is unavailable Patient Instructions Patient instructions are unavailable
--- OUTSIDE RECORDS SUMMARY | 2025-01-22 11:16 | XMS_ITS | Clinical Summary ---
Author Organization [facility] [facility] Address [id number] [address] [place] [address] Care Team Providers Care Radio Frequency Design Engineer Name Role Phone Donnie Hebert Primary Care Provider [phone] Allergies Active Allergy Reactions Criticality Noted Date [...] - 146 mmol/L 11/05/2024 7:04 PM EDT [facility] POTASSIUM 4.3 3.5 - 5.0 mmol/L 11/05/2024 7:04 PM EDT [facility] CHLORIDE 104 98 - 109 mmol/L 11/05/2024 7:04 PM EDT [facility] CARBON DIOXIDE 28 22 - 32 mmol/L 11/05/2024 7:04 PM EDT [facility] ANION GAP 10 5 - 15 mmol/L 11/05/2024 7:04 PM EDT [facility] BLOOD UREA NITROGEN 17 5 - 27 mg/dL 11/05/2024 7:04 PM EDT [facility] CREATININE 1.10(H) 0.40 - 1.00 mg/dL 11/05/2024 7:04 PM EDT [facility] Comment:METHOD TRACEABLE TO IDMS STANDARD GLUCOSE 176(H) 65 - 99 mg/dL 11/05/2024 7:04 PM EDT [facility] CALCIUM 9.9 8.5 - 10.5 mg/dL 11/05/2024 7:04 PM EDT [facility] EGFR Non-Race Dependent 56(L) >=60 ml/min/1.7 3sq.m 11/05/2024 7:04 PM EDT [facility] Comment: Reported eGFR is based on the CKD-EPI 2020 equation that does not use a race coefficient. Blood Venipuncture / Unknown 11/05/2024 2:47 PM EDT 11/05/2024 2:47 PM EDT us Rashad ROBBINS LAB BLOOD ORDERABLES Final Re sult [facility] [address] [place] [address], [place] [phone] from Last 3 Months Insurance MEDICARE [facility] [id number] Care Teams Radio Frequency Design Engineer Relationship Specialty Start Date End Date Donnie Hebert DO [address] [place] [address] PCP - General 02/14/17
--- OUTSIDE RECORDS SUMMARY | 2025-01-22 11:16 | XMS_ITS | Clinical Summary ---
Author Organization [facility] Address [address] [facility] [place] [address] Care Team Providers Care Pick And Shovel Man Name Role Phone Donnie Hebert Primary Care Provider Allergies Active Allergy Reactions Criticality Noted Date Comments Codeine Hives,Itching,Rash Low 02/14/2017 Morphine Hives 02/14/2017 Stroke like symptoms Oxycodone-Acetaminophe n Itching 11/16/2023 Prednisone Swelling 06/27/2024 ANKLE SWELLING - 12/17 PATIENT STATED THAT SHE TOOK PREDNISONE AND DENIED ANKLE SWELLING. Medications atorvastatin (Lipitor) 40 MG tablet 1 (one) time each day at the same time Active clobetasol (Temovate) 0.05 % cream Active clonazePAM (KlonoPIN) 0.5 MG tablet Take 0.5 mg by mouth as needed in the morning and 0.5 mg as needed in the evening. Active escitalopram (Lexapro) 10 MG tablet 09/22/2023 Active famotidine (Pepcid) 20 MG tablet Take [...] Do not crush, chew, or split. Active Active Problems No known active problems Encounters Date Type Department Care Team Description 12/25/2024 Refill [facility] [address] [place] [address] Bradley Pereyra, BABITA Post-operative pain (Primary Dx); Internal derangement of left knee 12/23/2024 Telephone [facility] [address] [place] [address] Jr. Waldo Delacruz, DO A1C 12/17/2024 2:00 PM EDT Office Visit [facility] [address] [place] [phone] Rashad Huerta PA Pre-op examination (Primary Dx) 12/17/2024 Bamboo flowsheet [facility] [address] [place] [phone] Rashad Huerta PA 12/17/2024 Travel 11/19/2024 Telephone [facility] [address] [place] [phone] Jr. Waldo Delacruz, surgery cancellation 11/15/2024 Refill [facility] [address] [place] [address] Bradley Pereyra, J2EE APPLICATION DEVELOPER Internal derangement of left knee (Primary Dx) 11/14/2024 11:00 AM EDT Evaluation [facility] [address] [place] [address] Roberto Sylvester, PT Chronic pain of left knee (Primary Dx); Pre-op examination 11/14/2024 Plan of Care Documentation [facility] [address] [place] [address] 11/14/2024 Bamboo flowsheet [facility] [address] [place] [address] Roberto Sylvester, PT 11/14/2024 Travel 11/06/[facility] [address] [place] [address] Jr. Waldo Delacruz, DO RS 1st Post Op 11/06/2024 Telephone [facility] [address] [place] [address] Roberto Sylvester, PT PT Prehab (Dos 11/19); Call Back 11/05/2024 2:00 PM EDT Office Visit [facility] [address] [place] [address] Rashad Huerta PA Pre-op examination (Primary Dx) 11/05/2024 Results Follow-Up [facility] [address] [place] [address] Rashad Huerta PA 11/05/2024 External Result Encounter [facility] External Department Unsolicited Rashad Huerta PA 11/05/2024 Bamboo flowsheet [address] [facility] [place] [address] Rashad Huerta PA 11/05/2024 Travel 10/29/2024 Orders Only [facility] [address] [place] [address] Katie Vaz MA from Last 3 Months Family History [...] - - Weight 110 kg (243 lb) 12/17/2024 2:16 PM EDT Height 176.5 cm (5' 9.5 ) 12/17/2024 2:16 PM EDT Body Mass Index 35.37 12/17/2024 2:16 PM EDT Plan of Treatment Upcoming Encounters Date Type Department Care Team (Late st Contact Info) Description 02/18/2025 1:45 PM EDT Office Visit [facility] [address] [place] [address] Lamont Guillory, DO [address] [place] [address] Health Maintenance Due Date Last Done Comments CT Colonography 1958 Colonoscopy 1958 FIT 1958 FOBT 1958 Sigmoidoscopy 1958 Mammogram 1998 Pneumococcal Vaccine: 65+ Ye ars (1 of 1 - PCV) 2008 Influenza Vaccine (#1) 2025 03/30/2018 Colorectal Cancer Screening 01/14/2027 FIT-DNA 01/14/2027 01/15/2024, [...] a race coefficient. Print requisition?->No PERFORMED AT [facility] [address],[place] [address] 11/05/2024 2:47 PM EDT 11/05/2024 6:09 PM EDT us Rashda ROBBINS LAB BLOOD ORDERABLES Final Re sult [facility] from Last 3 [place] [address] [facility] [place] [address] Care Teams Pick And Shovel Man Relationship Specialty Start Date End Date Donnie Hebert DO PCP - General Internal Medicine 11/16/23
--- OUTSIDE RECORDS SUMMARY | 2025-01-22 11:16 | XMS_ITS | Encounter Summary ---
Author Organization [facility] Address [address] [facility] [place] [address] Care Team Providers Care Wood Hacker Name Role Phone Donnie Hebert DO Primary Care Provider [phone] Encounter Details Date Type Department Care Team (Late Contact Info) Description 11/05/2024 Results Follow-Up [facility] [address] [place] [address] Rashad Huerta PA [address] [place] [address] Social History Tobacco Use Types Packs/Day Years [...] 02/18/2025 1:45 PM EDT Office Visit [facility] [address] [place] [address] Lamont Guillory DO [address] [place] [address] documented as of this encounter Visit Diagnoses Not on filedocumented in this encounter Care Teams Wood Hacker Relationship Specialty Start Date End Date Donnie Hebert DO PCP - General Internal Medicine 11/16/23 documented as of this encounter
--- OUTSIDE RECORDS SUMMARY | 2025-01-22 11:16 | XMS_ITS | Encounter Summary ---
Author Organization [facility] Address [address] [facility] [place] [address] Care Team Providers Care Motor Coach Bus Driver Name Role Phone Donnie Hebert DO Primary Care Provider [phone] Encounter Details Date Type Department Care Team (Late st Contact Info) Description 10/29/2024 Orders Only [facility] [address] [place] [address] Katie Vaz MA Social History Tobacco Use Types Packs/Day Years Used Date Smoking Tobacco: Never Smokeless Tobacco: Never Comments Unknown Sex and Gender Information Value Date Recorded Sex Assigned at Not on file Legal Sex Female 6:50 PM EDT Gender Identity Not on file Sexual Orientation Not on file documented as of this encounter Plan of Treatment Upcoming Encounters Date Type Department Care Team (Late st Contact Info) Description 02/18/2025 1:45 PM EDT Office Visit [facility] [address] [place] [phone] Lamont Guillory DO [address] [place] [address] documented as of this encounter Visit Diagnoses Not on filedocumented in this encounter Care Teams Motor Coach Bus Driver Relationship Specialty Start Date End Date Donnie Hebert DO PCP - General Internal Medicine 11/16/23 documented as of this encounter
--- OUTSIDE RECORDS SUMMARY | 2025-01-22 11:16 | XMS_ITS | Encounter Summary ---
Author Organization [facility] [facility] Address [id number] [address] [place] [address] Care Team Providers Care Mold Carpenter Name Role Phone Donnie Hebert DO Primary Care Provider [phone] Encounter Details Date Type Department Care Team (Late st Contact Info) Description 12/12/2023 Telephone [facility] [address] [place] [address] Alice Borges DO [address] [place] [address] Social History Tobacco Use Types Packs/Day Years [...] bacterial documented in this encounter Care Teams Mold Carpenter Relationship Specialty Start Date End Date Donnie Hebert DO [facility] [place] [address] PCP - General 02/14/17 documented as of this encounter
[2025-01-22 11:49] LABS: Hematocrit 42.6 % (36.0-48.0); Hemoglobin 13.8 g/dL (12.0-16.0); Immature Granulocytes Abs Auto 0.02 10^3/uL (0.00-0.03); Immature Granulocytes Pct Auto 0.2 % (0.0-0.5); Lymphocytes Absolute Auto 2.6 10^3/uL (1.2-3.8); Mean Corpuscular HGB Conc 32.4 g/dL (29.9-35.2); Mean Corpuscular Hemoglobin 26.9 pg (26.7-34.0); Mean Corpuscular Volume 83.0 fL (81.0-99.0); Platelet Count 297 10^3/uL (150-450); Red Blood Count 5.13 10^6/uL (4.20-5.40); White Blood Count 9.4 10^3/uL (4.0-11.0)
[2025-01-22 11:50] LABS: Glucose Urine UA 250 mg/dL (NEGATIVE)
[2025-01-22 12:01] LABS: Cast Seen? NONE SEEN #/LPF (NONE SEEN); Crystals Seen? None Seen #/HPF (None Seen)
[2025-01-22 12:02] LABS: Urine Culture Indicated ALREADY ORDERED
[2025-01-22 12:19] LABS: Alanine Aminotransferase 26 U/L (14-59); Albumin Globulin Ratio 0.7; Albumin Level 3.2 g/dL (3.4-5.0); Alkaline Phosphatase 143 U/L (46-116); Anion Gap 11.5; Aspartate Amino Transferase 20 U/L (15-37); Blood Urea Nitrogen 19.0 mg/dL (7.0-18.0); Calcium 9.1 mg/dL (8.5-10.1); Carbon Dioxide 28.5 mmol/L (21.0-32.0); Chloride 103 mmol/L (98-107); Cholesterol 161 mg/dL (<=200); Estimated GFR (African America 58 (>=60 mL/min/1.73m^2); Estimated GFR (Non-African Ame 48 (>=60 mL/min/1.73m^2); Globulin 4.3 g/dL; Glucose 200 mg/dL (74-106); HDL Cholesterol 52 mg/dL (40-60); Potassium 4.0 mmol/L (3.5-5.1); Sodium 139 mmol/L (136-145); Total Protein 7.5 g/dL (6.4-8.2); Triglycerides 118 mg/dL (<=150); VLDL CHOLESTEROL 23.6 mg/dL
[2025-01-22 12:30] LABS: Microalbum Creatinine Ratio Ur 41.5 mg/g (0.0-29.9)
== END 2025-01-22 11:14 | disposition home or self-care (01) ==
LOC: LAB 11:14
PROVIDERS: PCP Internal Medicine; Visit Provider Internal Medicine
DX: E78.00 Pure hypercholesterolemia, unspecified (principal); E11.65 Type 2 diabetes mellitus with hyperglycemia; Z79.4 Long term (current) use of insulin; I10 Essential (primary) hypertension; R30.0 Dysuria
CPT/HCPCS: 36415; 80053; 80061; 81001; 82043; 82570; 85025; 87086; 87088; 87186